=== PATIENT | male | born 1965 | race African-American/Black ===

== ENCOUNTER 2024-11-26 20:08 | Emergency (ER) | payer OTHER ==
[~2024-11-26] VITALS: Ht 182.9 cm; Wt 111.3 kg
--- NOTE | 2024-11-26 20:19 | ED.PDOC ---
General HPI Comments 59-year-old male brought in by EMS from home complaining of kidney pain, on the right side since around 9:00 a.m. today. When asked to localize the pain, patient points to his right upper flank and right mid back. He denies fever, abdominal pain, nausea, vomiting, diarrhea, constipation, hematuria or dysuria. He states the pain is not affected by movement or positioning. Patient states he took [place] this morning, which brought the pain down to a 6. 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, Medications, Allergies Allergies: Coded Allergies: No Known Drug Allergy (Verified Allergy, Unknown, 11/26/24) Information Source: Patient Mode of Arrival: EMS Severity: Moderate Timing: Hours Duration: Since onset, Hours Prehospital treatment: None Onset: Spontaneous Symptoms: Frequency Location: (R) Flank associated signs and symptoms: Nausea, Vomiting, Flank Pain Past Medical History PAST MEDICAL HISTORY: CHF, CVA, HTN Past Medical History (Other): Abdominal hernia Surgical History: Cholecystectomy, Tonsillectomy Surgical History (Other): Bilateral Eye Sx Family History Family History: Reviewed,noncontributory to illness, Unknown Social History Smoker: Non-Smoker Alcohol: Occasionally Drugs: Marijuana Lives In: Home Constitutional: denies: chills, diaphoresis, fatigue, fever, malaise, sweats, weakness, others EENTM: denies: blurred vision, double vision, ear bleeding, ear discharge, ear drainage, ear pain, ear ringing, eye pain, eye redness, hearing loss, mouth pain, mouth swelling, nasal discharge, nose bleeding, nose congestion, nose pain, photophobia, tearing, throat pain, throat swelling, voice changes, others Respiratory: denies: cough, hemoptysis, orthopnea, SOB at rest, shortness of breath, SOB with excertion, stridor, wheezing, others Cardiovascular: denies: chest pain, dizzy spells, diaphoresis, Dyspnea on exe rtion, edema, irregular heart beat, left arm pain, lightheadedness, palpitations, PND, syncope, others Gastrointestinal: reports: nausea, vomiting; denies: abdomen distended, abdominal pain, blood streaked bowels, constipated, diarrhea, dysphagia, difficulty swallowing, hematemesis, melena, poor appetite, poor fluid intake, rectal bleeding, rectal pain, others Genitourinary: reports: flank pain; denies: burning, dysuria, frequency, hematuria, incontinence, penile discharge, penile sore, pain, testicle pain, testicle swelling, urgency, others Neurological: denies: dizziness, fainting, headache, left sided numbness, left sided weakness, numbness, paresthesia, pre-existing deficit, right sided numbness, right sided weakness, seizure, speech problems, tingling, tremors, weakness, others Musculoskeletal: denies: back pain, gout, joint pain, joint swelling, muscle pa in, muscle stiffness, neck pain, others Integumetry: denies: bruises, change in color, change in hair/nails, dryness, laceration, lesions, lumps, rash, wounds, others Allergic/Immunocompromised: denies: Difficulty Healing, Frequent Infections, Hives, Itching, others Hematologic/Lymphatic: denies: anemia, blood clots, easy bleeding, easy bruising, swollen glands, others Endocrine: denies: excessive hunger, excessive sweating, excessive thirst, excessive urination, flushing, intolerance to cold, intolerance to heat, unexplained weight gain, unexplained weight loss, others Psychiatric: denies: anxiety, bipolar disorder, depression, hopeless, panic disorder, schizophrenia, sleepless, suicidal, others All Other Systems: Reviewed and Negative Physical Exam General Appearance: No Apparent Distress HEENT: Other (Pupils and face symmetric. Moist mucous membranes. ) Neck: Full Range of Motion, Normal Inspection Respiratory: Lungs Clear, No Accessory Muscle Use, No Respiratory Distress, Normal Breath Sounds Cardiovascular: No Edema, No JVD, Regular Rate/Rhythm Breast Exam: Deferred Gastrointestinal: Soft, Other (Right upper flank and CVA tenderness) Genitalia: Deferred Pelvic: Deferred Rectal: Deferred Extremities: Normal inspection, Normal range of motion, Non-tender, No pedal edema Neurologic: Alert (Oriented x4), Normal Affect, Normal Mood, Other (Ambulatory) Cerebellar Function: NOT DONE Reflexes: NOT DONE Skin: Dry, Normal Color, Warm Lymphatic: NOT DONE Was a procedure done? Was a procedure done?: No Differential Diagnosis Kidney stone (Female): N/A Kidney stone (Male): Aortic dissection, Pyelonephritis, Renal failure, Strain, Urolithiasis, Urinary tract infection, Other (Musculoskeletal pain, disc disease, neuropathic pain) X-Ray, Labs, Meds, VS Vital Signs Date Time Temp Pulse Resp B/P (MAP) Pulse Ox O2 Delivery O2 Flow Rate FiO2 11/26/24 21:48 54 16 117/78 (91) 99 11/26/24 21:48 54 16 99 Room Air* 0 21 11/26/24 20:20 98.0 60 16 127/63 (84) 98 98.0 Lab Test 11/26/24 20:40 11/26/24 20:20 Range/Units White Blood Count 6.8 4.4-10.8 10^3/uL Red Blood Count 4.16 L 4.5-5.90 10^6/uL Hemoglobin 12.6 L 13.5-17.5 g/dL Hematocrit 38.9 L 41.0-53.0 % Mean Corpuscular Volume 93.6 80.0-100.0 fL Mean Corpuscular Hemoglobin 30.3 28.0-32.0 pg Mean Corpuscular Hemoglobin Concent 32.4 32.0-36.0 g/dL Red Cell Distribution Width 16.0 H 11.8-14.3 % Platelet Count 234 140-450 10^3/uL Mean Platelet Volume 8.1 6.9-10.8 fL Neutrophils (%) (Auto) 43.1 37.0-80.0 % Lymphocytes (%) (Auto) 37.1 10.0-50.0 % Monocytes (%) (Auto) 16.4 H 0.0-12.0 % Eosinophils (%) (Auto) 2.9 0.0-7.0 % Basophils (%) (Auto) 0.5 0.0-2.0 % Neutrophils # (Auto) 3.0 1.6-8.6 10 ^3/uL Lymphocytes # (Auto) 2.5 0.4-5.4 10 ^3/uL Monocytes # (Auto) 1.1 0-1.3 10 ^3/uL Eosinophils # (Auto) 0.2 0-0.8 10 ^3/uL Basophils # (Auto) 0 0-0.2 10 ^3/uL Nucleated Red Blood Cells 0.1 % Sodium Level 136 136-145 mmol/L Potassium Level 4.3 3.5-5.1 mmol/L Chloride Level 105 98-107 mmol/L Carbon Dioxide Level 21 20-31 mmol/L Anion Gap 10 5-15 Blood Urea Nitrogen 19 9-23 mg/dL Creatinine 1.48 H 0.700-1.30 mg/dL Glomerular Filtration Rate Calc 54 >90 mL/min BUN/Creatinine Ratio 12.8 10.0-20.0 Serum Glucose 96 74-106 mg/dL Calcium Level 9.3 8.7-10.4 mg/dL Total Bilirubin 0.6 0.2-1.0 mg/dL Aspartate Amino Transferase (AST) 19 13-40 U/L Alanine Aminotransferase (ALT) 29 7-40 U/L Alkaline Phosphatase 96 46-116 U/L Total Protein 7.5 5.7-8.2 g/dL Albumin 4.2 3.2-4.8 g/dL Urine Color Yellow Yellow Urine Clarity Clear Clear Urine pH 5.5 5.0-9.0 Urine Specific [place] 1.019 1.001-1.035 Urine Protein Negative Negative Urine Ketones Negative Negative Urine Blood Negative Negative /uL Urine Nitrite Negative Negative Urine Bilirubin Negative Negative Urine Urobilinogen Normal Negative mg/dL Urine Leukocyte Esterase Negative Negative /uL Urine RBC 1 0 - 3 /hpf Urine Microscopic WBC < 1 0-3 /HPF Urine Squamous Epithelial Cells Few <5 /hpf Urine Bacteria None seen None Seen /hpf Urine Glucose 4+ H Normal mg/dL PROCEDURE(s): ABPL - CT AB PEL WO CON-NO ORAL OR IV REASON: R flank pain ORDER NUMBER(s): [id number], ACCESSION NUMBER(s): [id number] CT SCAN ABDOMEN AND PELVIS WITHOUT CONTRAST CLINICAL HISTORY: R flank pain TECHNIQUE: Helical axial images are obtained from the lung bases through the pelvis without oral contrast. No intravenous contrast was administered. Coronal and sagittal reformatted images were generated from thin section reconstructions. One or more of the following radiation dose reduction techniques were used for this examination: automated exposure control, adjustment of the mA and/or kV according to patient size, use of iterative reconstruction technique. COMPARISON: None FINDINGS: LOWER THORAX: Imaged lung bases are grossly clear. ABDOMEN AND PELVIS: Evaluation of visceral and vascular structures is limited due to lack of contra st administration. Streak artifact also limits evaluation. As visualized, the unenhanced liver, spleen, pancreas and adrenals appear grossly unremarkable. The gallbladder is surgically absent. No hydroureteronephrosis or sizable, obstructing urinary tract calculi identified. No evidence of abdominal aortic aneurysm. No evidence of small-bowel obstruction. Normal caliber appendix. Colonic diverticulosis without definite CT evidence of diverticulitis at time. Moderate volume stool seen throughout the colon and rectum. No free intraperitoneal air or fluid identified. Apparent thickening of the urinary bladder may be in part due to underdistention. No sizable bladder calculus. No destructive osseous lesions identified. IMPRESSION: No hydroureteronephrosis or sizable, obstructing urinary tract calculi identified. No evidence of bowel obstruction. Colonic diverticulosis without definite CT evidence of diverticulitis at this time. X-Ray, Labs, Meds, VS Comment 59-year-old male with a history of hypertension, CVA, CHF and abdominal hernia complaining of right flank pain Vitals unremarkable Exam remarkable for right upper flank and CVA tenderness Rhythm strip independently interpreted by me: Sinus rhythm, rate 60, no ectopy. CT abdomen and pelvis: IMPRESSION: No hydroureteronephrosis or sizable, obstructing urinary tract calculi identified. No evidence of bowel obstruction. Colonic diverticulosis without definite CT evidence of diverticulitis at this time. CBC unremarkable, metabolic panel remarkable for creatinine 1.48, UA 4+ glucose otherwise negative Patient treated with the following in the ED: Morphine 4 mg IV, Zofran 4 mg IV On re-evaluation, patient states pain has improved. Vitals were stable. Workup is essentially unremarkable for any urinary infectious process, kidney stone, ureter stone or hydronephrosis. Pain may be musculoskeletal or neuropathic. Patient appears stable for discharge with close outpatient follow- up with his primary physician. Rx Soma. Continue [place] as needed for pain. Time of 1ST Reevaluation: 20:45 Reevaluation 1ST: Unchanged Time of 2ND Reevaluation: 22:00 Reevaluation 2ND: Improved Patient Education/Counseling: Diagnosis, Treatment, Prognosis Family Education/Counseling: No Family Present Departure 1 Departure Time of Disposition: 22:00 Impression: Primary Impression: Acute right flank pain Disposition: 01 HOME / SELF CARE / HOMELESS Condition: Stable Additional Instructions: Your blood tests were unremarkable for slightly abnormal kidney function. This is likely chronic. Your urine test showed glucose, but no kidney infection. CT scan did not show any abnormality involving your kidney. The report is enclosed below. Continue [place] as needed for pain. I have prescribed muscle relaxers. Follow-up with your primary doctor in 1-[address] [address] Ph: [phone] DIAGNOSTIC IMAGING Diagnostic Imaging Report : [id number] Signed PATIENT: JOSE PEDRO ACCT: [id number] UNIT: [id number] : 1965 LOC: ER ROOM / BED: / AGE / SEX: 59 / M ADM STATUS: REG ER SERVICE 17 ORDERING PHYSICIAN: VIDAL HERNANDEZ MD PROCEDURE(s): ABPL - CT AB PEL WO CON-NO ORAL OR IV REASON: R flank pain ORDER NUMBER(s): [id number], ACCESSION NUMBER(s): [id number] CT SCAN ABDOMEN AND PELVIS WITHOUT CONTRAST CLINICAL HISTORY: R flank pain TECHNIQUE: Helical axial images are obtained from the lung bases through the pelvis without oral contrast. No intravenous contrast was administered. Coronal and sagittal reformatted images were generated from thin section reconstructions. One or more of the following radiation dose reduction techniques were used for this examination: automated exposure control, adjus tment of the mA and/or kV according to patient size, use of iterative reconstruction technique. COMPARISON: None FINDINGS: LOWER THORAX: Imaged lung bases are grossly clear. ABDOMEN AND PELVIS: Evaluation of visceral and vascular structures is limited due to lack of contrast administration. Streak artifact also limits evaluation. As visualized, the unenhanced liver, spleen, pancreas and adrenals appear grossly unremarkable. The gallbladder is surgically absent. No hydroureteronephrosis or sizable, obstructing urinary tract calculi identified. No evidence of abdominal aortic aneurysm. No evidence of small-bowel obstruction. Normal caliber appendix. Colonic diverticulosis without definite CT evidence of diverticulitis at time. Moderate volume stool seen throughout the colon and rectum. No free intraperitoneal air or fluid identified. Apparent thickening of the urinary bladder may be in part due to underdistention. No sizable bladder calculus. No destructive osseous lesions identified. IMPRESSION: No hydroureteronephrosis or sizable, obstructing urinary tract calculi identified. No evidence of bowel obstruction. Colonic diverticulosis without definite CT evidence of diverticulitis at this time. e-Prescriptions Carisoprodol (Soma) 250 Mg Tab 250 MG PO Q8HPRN PRN, #30 TAB Prov: VIDAL HERNANDEZ MD 11/26/24 Discharged With: Self Critical Care Note Critical Care Time?: No Stability Stability form required: No Heart Score Heart Score: Heart Score Response (Comments) Value History N/A 0 EKG N/A 0 Age N/A 0 Risk Factors N/A 0 Troponin N/A 0 Total 0 I personally scribed for VIDAL HERNANDEZ MD ([email or web address]) on 11/26/24 at 20:19. Electronically submitted by Eugene Lomas ([email or web address]). VIDAL HERNANDEZ MD Nov 26, 2024 20:19
[2024-11-26 20:30] LABS: Urine Bacteria None Seen /hpf (None Seen)
[2024-11-26 20:38] LABS: Urine Blood Negative /uL (Negative); Urine Clarity Clear (Clear); Urine Color Yellow (Yellow); Urine Protein, UAD Negative (Negative); Urine Specific Gravity 1.019 (1.001-1.035); Urine Squamous Epithelial Cell FEW /hpf (<5); Urine Urobilinogen Normal (Negative); Urine WBC < 1 /HPF (0-3); Urine pH 5.5 (5.0-9.0)
[2024-11-26 20:54] LABS: Basophils # (auto) 0 10 ^3/uL (0-0.2); Basophils % (auto) 0.5 % (0.0-2.0); Eosinophils # (auto) 0.2 10 ^3/uL (0-0.8); Eosinophils % (auto) 2.9 % (0.0-7.0); Hematocrit 38.9 % (41.0-53.0); Hemoglobin 12.6 g/dL (13.5-17.5); Lymphocytes # (auto) 2.5 10 ^3/uL (0.4-5.4); Lymphocytes % (auto) 37.1 % (10.0-50.0); Mean Corpuscular Hemoglobin 30.3 pg (28.0-32.0); Mean Corpuscular Hgb Conc. 32.4 g/dL (32.0-36.0); Mean Corpuscular Volume 93.6 fL (80.0-100.0); Monocytes # (auto) 1.1 10 ^3/uL (0-1.3); Monocytes % (auto) 16.4 % (0.0-12.0); Neutrophils % (auto) 43.1 % (37.0-80.0); Nucleated Red Blood Cells % 0.1 %; Platelet Count (auto) 234 10^3/uL (140-450); Red Blood Cells 4.16 10^6/uL (4.5-5.90); White Blood Cell 6.8 10^3/uL (4.4-10.8)
[2024-11-26 21:08] LABS: Alanine Aminotransferase 29 U/L (7-40); Albumin 4.2 g/dL (3.2-4.8); Alkaline Phosphatase 96 U/L (46-116); Anion Gap 10 (5-15); Aspartate Aminotransferase 19 U/L (13-40); BUN/Creatinine Ratio 12.8 (10.0-20.0); Bilirubin, Total 0.6 mg/dL (0.2-1.0); Blood Urea Nitrogen 19 mg/dL (9-23); Calcium 9.3 mg/dL (8.7-10.4); Carbon Dioxide 21 mmol/L (20-31); Chloride 105 mmol/L (98-107); Glucose 96 mg/dL (74-106); Potassium 4.3 mmol/L (3.5-5.1); Total Protein 7.5 g/dL (5.7-8.2)
[2024-11-26 21:17] LABS: Sodium 136 mmol/L (136-145)
--- NOTE | 2024-11-26 21:34 | DVH ---
CT SCAN ABDOMEN AND PELVIS WITHOUT CONTRAST CLINICAL HISTORY: R flank pain TECHNIQUE: Helical axial images are obtained from the lung bases through the pelvis without oral cont rast. No intravenous contrast was administered. Coronal and sagittal reformatted images were generate d from thin section reconstructions. One or more of the following radiation dose reduction techniques were used for this examination: automated exposure control, adjustment of the mA and/or kV according to patient size, use of iterative reconstruction technique. COMPARISON: None FINDINGS: LOWER THORAX: Imaged lung bases are grossly clear. ABDOMEN AND PELVIS: Evaluation of visceral and vascular structures is limited due to lack of contrast administration. Str eak artifact also limits evaluation. As visualized, the unenhanced liver, spleen, pancreas and adrenals appear grossly unremarkable. The g allbladder is surgically absent. No hydroureteronephrosis or sizable, obstructing urinary tract calculi identified. No evidence of abdominal aortic aneurysm. No evidence of small-bowel obstruction. Normal caliber appendix. Colonic diverticulosis without defin ite CT evidence of diverticulitis at time. Moderate volume stool seen throughout the colon and rectum . No free intraperitoneal air or fluid identified. Apparent thickening of the urinary bladder may be in part due to underdistention. No sizable bladder calculus. No destructive osseous lesions identified. IMPRESSION: No hydroureteronephrosis or sizable, obstructing urinary tract calculi identified. No evidence of bowel obstruction. Colonic diverticulosis without definite CT evidence of diverticulitis at this time.
[2024-11-26 21:48] VITALS: PULSE 54; RESP 16; O2SAT 99
[2024-11-26] MEDS ORDERED: CARI250T PO (22:07)
[2024-11-26] MEDS: ONDANSETRON HCL 4 MG/2 ML VIAL IV ONE (22:18)
[2024-11-26] MEDS: MORPHINE SULFATE 4 MG/ML SYR/VIAL IV ONE (22:19)
[2024-11-26 23:10] VITALS: BP 123/46; PULSE 51; RESP 16; TEMP 97.5; O2SAT 95
== END 2024-11-26 23:19 | disposition home or self-care (01) ==
LOC: EDBD 20:08 → ER 20:08
DX: R10.10 Upper abdominal pain, unspecified (principal); F12.90 Cannabis use, unspecified, uncomplicated; I11.0 Hypertensive heart disease with heart failure; I50.9 Heart failure, unspecified; I10 Essential (primary) hypertension; Z90.49 Acquired absence of other specified parts of digestive tract; Z90.89 Acquired absence of other organs; Z86.73 Personal history of transient ischemic attack (TIA), and cerebral infarction without residual deficits
CPT/HCPCS: 36415; 74176; 80053; 81001; 85025; 87086; 96374; 96375; 99285; J2270; J2405

== ENCOUNTER 2024-12-20 19:34 | Emergency (ER) | payer OTHER ==
[~2024-12-20] VITALS: Ht 188 cm; Wt 104.0 kg
[~2024-12-20 19:34] MED LIST: CARI250T PO
--- NOTE | 2024-12-20 20:24 | ED.PDOC ---
History of Present Illness HPI Comments 59 y/o M is BIBA for c/o bilateral thigh and lower leg cramping. Patient reports onset of symptoms 4 hours ago, unprovoked, and calling EMS after consulting nurse phone help line. Started, initially, on his left side. Endorses past medical history of CHF, CVA, HTN, and DVT's, with current DVT on left leg (on Coumadin). Patient denies having any shortness of breath, chest pain, numbness, tingling, or further associated symptoms. Chief Complaint: Lower Extremity Time Seen by MD: 19:40 Reviewed Notes: Nurses Notes, Medications, Allergies Allergies: Coded Allergies: No Known Drug Allergy (Verified Allergy, Unknown, 11/26/24) Home Meds Active Scripts Carisoprodol (Soma) 250 Mg Tab, 250 MG PO Q8HPRN PRN, #30 TAB Prov:VIDAL HERNANDEZ MD 11/26/24 Information Source: Patient Mode of Arrival: EMS Severity: Moderate Timing: Hours Duration: Since onset Prehospital treatment: None Past Medical History PAST MEDICAL HISTORY: CHF, CVA, HTN Past Medical History (Other): DVT's Surgical History: Cholecystectomy, Tonsillectomy Family History Family History: Reviewed,noncontributory to illness, Unknown Social History Smoker: Non-Smoker Alcohol: Occasionally Drugs: Marijuana Lives In: Home All Other Systems: Reviewed and Negative (Comprehensive systems review obtained and negative except for what is stated in the HPI.) Physical Exam General Appearance: No Apparent Distress, Normal HEENT: Normal ENT Inspection, Pharynx Normal, TMs Normal Neck: Full Range of Motion, Non-Tender, Normal, Normal Inspection Respiratory: Chest Non-Tender, Lungs Clear, No Accessory Muscle Use, No Respiratory Distress, Normal Breath Sounds Cardiovascular: No Edema, No JVD, No Murmur, No Gallop, Normal Peripheral Pulses, Regular Rate/Rhythm Breast Exam: Deferred Gastrointestinal: No Organomegaly, Non Tender, No Pulsatile Mass, Normal Bowel Sounds, Soft Genitalia: Deferred Pelvic: Deferred Rectal: Deferred Extremities: No calf tenderness, Normal capillary refill, Normal inspection, Normal range of motion, Non-tender, No pedal edema Musculoskeletal : Apperance: Normal Neurologic: Alert, ladler II-XII nml as Tested, No Motor Deficits, Normal Affect, Normal Mood, No Sensory Deficits Cerebellar Function: Normal Reflexes: Normal Skin: Dry, Normal Color, Warm Lymphatic: No Adenopathy Was a procedure done? Was a procedure done?: No Differential Dx Considerations may include: sprain, musculoskeletal pain, sciatica, DDD, DVT, among others X-Ray, Labs, Meds, VS Vital Signs Date Time Temp Pulse Resp B/P (MAP) Pulse Ox O2 Delivery O2 Flow Rate FiO2 12/20/24 21:06 66 18 100 Room Air* 0 21 12/20/24 21:06 98.8 66 18 136/83 (100) 100 98.8 12/20/24 19:36 98.6 78 18 104/72 (83) 96 98.6 Lab Test 12/20/24 20:25 Range/Units White Blood Count 8.5 4.4-10.8 10^3/uL Red Blood Count 4.21 L 4.5-5.90 10^6/uL Hemoglobin 12.9 L 13.5-17.5 g/dL Hematocrit 38.3 L 41.0-53.0 % Mean Corpuscular Volume 90.9 80.0-100.0 fL Mean Corpuscular Hemoglobin 30.7 28.0-32.0 pg Mean Corpuscular Hemoglobin Concent 33.8 32.0-36.0 g/dL Red Cell Distribution Width 15.5 H 11.8-14.3 % Platelet Count 270 140-450 10^3/uL Mean Platelet Volume 8.0 6.9-10.8 fL Neutrophils (%) (Auto) 50.1 37.0-80.0 % Lymphocytes (%) (Auto) 32.0 10.0-50.0 % Monocytes (%) (Auto) 15.5 H 0.0-12.0 % Eosinophils (%) (Auto) 2.1 0.0-7.0 % Basophils (%) (Auto) 0.3 0.0-2.0 % Neutrophils # (Auto) 4.3 1.6-8.6 10 ^3/uL Lymphocytes # (Auto) 2.7 0.4-5.4 10 ^3/uL Monocytes # (Auto) 1.3 0-1.3 10 ^3/uL Eosinophils # (Auto) 0.2 0-0.8 10 ^3/uL Basophils # (Auto) 0 0-0.2 10 ^3/uL Nucleated Red Blood Cells 0.1 % Sodium Level 136 136-145 mmol/L Potassium Level 3.8 3.5-5.1 mmol/L Chloride Level 101 98-107 mmol/L Carbon Dioxide Level 23 20-31 mmol/L Anion Gap 12 5-15 Blood Urea Nitrogen 19 9-23 mg/dL Creatinine 1.76 H 0.700-1.30 mg/dL Glomerular Filtration Rate Calc 44 >90 mL/min BUN/Creatinine Ratio 10.8 10.0-20.0 Serum Glucose 86 74-106 mg/dL Calcium Level 10.2 8.7-10.4 mg/dL Total Bilirubin 0.5 0.2-1.0 mg/dL Aspartate Amino Transferase (AST) 18 13-40 U/L Alanine Aminotransferase (ALT) 28 7-40 U/L Alkaline Phosphatase 122 H 46-116 U/L B-Type Natriuretic Peptide 8.04 0-100 pg/mL Total Protein 7.9 5.7-8.2 g/dL Albumin 4.6 3.2-4.8 g/dL X-Ray, Labs, Meds, VS Comment Imaging: X-rays and CT scans were reviewed and interpreted by this provider, imaging shows no fractures and no pathological disease. Pending radiology review. Laboratory: Labs reviewed and interpreted by this provider. No significant abnormalities noted. Patient has prior medical visits reviewed. Med reconciliation performed Vital signs reviewed Time of 1ST Reevaluation: 20:10 Reevaluation 1ST: Unchanged Patient Education/Counseling: Diagnosis, Treatment, Need For Follow Up (Follow up in the emergency department in the next 24-48 hours if symptoms worsen. It was advised to follow up with your primary care doctor in the next 3-4 days for further evaluation.) Family Education/Counseling: No Family Present Additional Information Previous visits reviewed: November 26, 2024 encounter for acute right flank pain The following tests were ordered, and results were reviewed by me: bilateral lower DVT, UA, BNP. CBC, CMP Additional Information was gathered from interviewing the following independent historians: EMS I reviewed and agreed with the following test results read by other providers: bilateral lower DVT I discussed treatment and results with medical personnel and: patient Departure 1 Departure Time of Disposition: 22:08 Impression: Primary Impression: DVT (deep venous thrombosis) Qualified Codes: I82.512 - Chronic embolism and thrombosis of left femoral vein Additional Impression: Leg cramping Disposition: HOME / SELF CARE / HOMELESS Condition: Fair Discharged With: Self Critical Care Note Critical Care Time?: No Stability Stability form required: No Heart Score Heart Score: Heart Score Response (Comments) Value History N/A 0 EKG N/A 0 Age N/A 0 Risk Factors N/A 0 Troponin N/A 0 Total 0 I personally scribed for LAUREN DE OLIVEIRA ([email or web address]) on 12/20/24 at 20:24. Electronically submitted by Cale Arteaga ([email or web address]). LAUREN DE OLIVEIRA December 20, 2024 20:24
[2024-12-20 20:39] LABS: Basophils # (auto) 0 10 ^3/uL (0-0.2); Basophils % (auto) 0.3 % (0.0-2.0); Eosinophils # (auto) 0.2 10 ^3/uL (0-0.8); Eosinophils % (auto) 2.1 % (0.0-7.0); Hematocrit 38.3 % (41.0-53.0); Hemoglobin 12.9 g/dL (13.5-17.5); Lymphocytes # (auto) 2.7 10 ^3/uL (0.4-5.4); Mean Corpuscular Hemoglobin 30.7 pg (28.0-32.0); Mean Corpuscular Hgb Conc. 33.8 g/dL (32.0-36.0); Mean Corpuscular Volume 90.9 fL (80.0-100.0); Monocytes # (auto) 1.3 10 ^3/uL (0-1.3); Monocytes % (auto) 15.5 % (0.0-12.0); Neutrophils # (auto) 4.3 10 ^3/uL (1.6-8.6); Neutrophils % (auto) 50.1 % (37.0-80.0); Nucleated Red Blood Cells % 0.1 %; Platelet Count (auto) 270 10^3/uL (140-450); Red Blood Cells 4.21 10^6/uL (4.5-5.90); Red Cell Distribution Width 15.5 % (11.8-14.3); White Blood Cell 8.5 10^3/uL (4.4-10.8)
--- NOTE | 2024-12-20 20:42 | DVH ---
Procedure: US BiLat Lower DVT Study Date and Requested Time: 12/20/2024 07:54 PM History: pain Comparison: None Technique: Multiple high resolution cobos-scale images with and without compression obtained of the bi lateral lower extremity veins, including the common femoral vein, deep femoral vein, proximal mid and distal superficial femoral vein, and popliteal vein. Additional limited images of the greater saphen ous vein also obtained. Augmentation performed as indicated. Color and spectral doppler flow images o btained as indicated. Findings: Deep vein thrombosis involving the the left mid and distal superficial femoral vein, left popliteal v ein and left bifurcation. No deep vein thrombosis within the right lower extremity veins and remainder of the left lower extrem ity veins. Impression: Deep vein thrombosis involving the left mid and distal superficial femoral veins, left popliteal vein and left bifurcation. Multiple attempts were made to contact provider without success.
[2024-12-20 20:54] LABS: Alanine Aminotransferase 28 U/L (7-40); Albumin 4.6 g/dL (3.2-4.8); Anion Gap 12 (5-15); Aspartate Aminotransferase 18 U/L (13-40); BUN/Creatinine Ratio 10.8 (10.0-20.0); Blood Urea Nitrogen 19 mg/dL (9-23); Calcium 10.2 mg/dL (8.7-10.4); Carbon Dioxide 23 mmol/L (20-31); Chloride 101 mmol/L (98-107); Glucose 86 mg/dL (74-106); Potassium 3.8 mmol/L (3.5-5.1); Total Protein 7.9 g/dL (5.7-8.2)
[2024-12-20 20:55] LABS: Bilirubin, Total 0.5 mg/dL (0.2-1.0)
[2024-12-20 20:58] LABS: Alkaline Phosphatase 122 U/L (46-116); Sodium 136 mmol/L (136-145)
[2024-12-20 21:06] VITALS: PULSE 66; RESP 18; TEMP 98.8; O2SAT 100
[2024-12-20] MEDS ORDERED: KETOROLAC TROMETH 30 MG/ML 1ML VIAL IM ONE (21:30)
[2024-12-20] MEDS: KETOROLAC TROMETH 30 MG/ML 1ML VIAL IV ONE (22:15)
[2024-12-20] MEDS: SODIUM CHLORIDE 0.9% 1,000 ML IV ONE (22:15)
[2024-12-20] MEDS: MORPHINE SULFATE 4 MG/ML SYR/VIAL IV ONE (23:09)
[2024-12-20 23:38] VITALS: BP 137/85; PULSE 71; RESP 14; O2SAT 96
== END 2024-12-20 23:41 | disposition home or self-care (01) ==
LOC: EDBD 19:34 → ER 19:34
DX: I82.402 Acute embolism and thrombosis of unspecified deep veins of left lower extremity (principal); R25.2 Cramp and spasm; F12.90 Cannabis use, unspecified, uncomplicated; I11.0 Hypertensive heart disease with heart failure; I50.9 Heart failure, unspecified; Z90.89 Acquired absence of other organs; Z90.49 Acquired absence of other specified parts of digestive tract
CPT/HCPCS: 36415; 80053; 83880; 85025; 93970; 96361; 96374; 96375; 99285; J1885; J2270; J7030

== ENCOUNTER 2025-01-15 01:53 | Inpatient (IN) | payer OTHER ==
[~2025-01-15] VITALS: Ht 182.9 cm; Wt 120.3 kg
[2025-01-15] VITALS (7 sets, daily range): BP systolic 137–145; BP diastolic 45–94; PULSE 50–75; RESP 12–18; TEMP 97.9–98.9; O2SAT 95–98
--- NOTE | 2025-01-15 02:09 | ED.PDOC ---
Musculoskeletal HPI Comments 59-year-old male came to ER via EMS for left leg pain. Patient has a history of hypertension, CHF, CVA and DVT of the left leg. Patient used to be on warfarin has been off his medication for 10 days, before switching to Xarelto which he is on for the past 3 days. Noted pain over the entire left leg. Denies any recent trauma. Denies any chest pains or shortness a breath Chief Complaint: Lower extremity Time Seen by MD: 02:07 Reviewed Notes: Head Of Ethics And Compliance Notes Allergies: Coded Allergies: No Known Drug Allergy (Verified Allergy, Unknown, 11/26/24) Home Meds Active Scripts Carisoprodol (Soma) 250 Mg Tab, 250 MG PO Q8HPRN PRN, #30 TAB Prov:VIDAL HERNANDEZ MD 11/26/24 Reported Medications Dicyclomine Hcl (BENTYL CAPSULE) 10 Mg Cp, 1 CAP PO, #90 CAP 11 Refills 01/15/25 Baclofen (Baclofen) 20 Mg Tab, 1 TAB PO, #90 TAB 2 Refills 01/15/25 Gabapentin (Gabapentin) 300 Mg Cap, 300 MG PO for 30 Days, MG 01/15/25 Magnesium Oxide (MAGNESIUM OXIDE) 400 Mg Tab, 1 TAB PO, #30 TAB 5 Refills 01/15/25 Tramadol HCl (Tramadol HCl) 50 Mg Tab, 50 MG PO, TAB 01/15/25 Empagliflozin (Jardiance) 10 Mg Tab, 10 MG PO, TAB 01/15/25 Atorvastatin Calcium (ATORVASTATIN CALCIUM) 40 Mg Tab, 1 TAB PO, #30 TAB 5 Refills 01/15/25 Spironolactone (Spironolactone) 25 Mg Tab, 1 TAB PO, #90 TAB 1 Refill 01/15/25 Sacubitril-Valsartan (Entresto 97-103 mg) 1 Tab Tab, 1 TAB PO, TAB 01/15/25 Dorzolamide-Timolol (Dorzolamide Hcl/Timolol M) 1 Ml Brigitte, 1 DROP EACHEYE, #10 ML 6 Refills 01/15/25 Brimonidine Tartrate (Brimonidine Tartrate) 0.15 % Brigitte, 1 DROP OP TID, DROP 01/15/25 Folic Acid (Folic Acid) 1 Mg Tab, 1 MG PO for 30 Days, MG 01/15/25 Homeopathic Products (Theraworx Relief) 1 Liq Liq, 1 LIQ EX, LIQ 01/15/25 Chlorpromazine HCl (Chlorpromazine Hydrochlor) 25 Mg Tab, 25 MG PO, TAB 01/15/25 Rivaroxaban (XARELTO) 20 Mg Tab, 20 MG PO, TAB 01/15/25 Pantoprazole Sodium Sesquihydr (Protonix) 40 Mg Tab, 40 MG PO, #30 TAB 01/15/25 Mesalamine (DELZICOL) 400 Mg Cap, 400 MG OR, CAP 01/15/25 Hydrocodone-Acetaminophen (Hydrocodone Bitartrate/AC 5-325 mg) 1 Tab Tab, 1 TAB PO, TAB 01/15/25 Metoprolol Succinate (Metoprolol Succinate Er) 50 Mg Tab, 200 MG PO for 30 Days, MG 01/15/25 Bumetanide (Bumex) 2 Mg Tab, 2 MG PO DAILY 01/15/25 Discontinued Reported Medications Bumetanide (Bumetanide) 2 Mg Tab, 2 MG PO for 30 Days, MG 01/15/25 Information Source: Patient, Emergency Med Personnel Mode of Arrival: EMS Location: Left Extremity Location: Leg Timing: Hours Prehospital treatment: None Severity: Moderate Able to Move Extremity: Yes Bear Weight: Limited Pain: Moderate Hand Dominance: Right Mechanism: Spontaneous Circumstances: Spontaneous Onset of Symptoms: Spontaneous Symptoms: Swelling Associated signs and symptoms: Leg pain (Left) Review of Systems REVIEW OF SYSTEMS: No fever, no chills, or fatigue HEENT: No sore throat, no earache, no congestion, no neck pain. Cardiac: No chest pain. No palpitations. Lungs: No shortness of breath, no cough. GI: No nausea, no vomiting, no diarrhea, no constipation, no abdominal pain : No dysuria, frequency, or urgency. No hematuria. Musculoskeletal: No joint pain , no joint swelling, no extremity edema. (+) left leg pain Skin: No rash, no itching. Neuro: No headache, no dizziness, no weakness Vital Signs Vital Signs Date Time Temp Pulse Resp B/P (MAP) Pulse Ox O2 Delivery O2 Flow Rate FiO2 01/15/25 08:02 57 01/15/25 08:00 97.7 12 131/56 (81) 95 97.7 01/15/25 07:30 Room Air* 0 21 Physical Exam General: Awake, alert and oriented. No acute distress. Skin: Skin in warm, dry and intact without rashes or lesions. HEENT: The head is normocephalic and atraumatic. Conjunctivae are clear without exudates or hemorrhage. Sclera is non-icteric. Neck: Normal range of motion. No JVD. Cardiac: Regular rate Respiratory: No signs of respiratory distress. No Stridor. Extremities: Lower extremity tenderness Neurological: The patient is awake, alert and oriented to person, place, and time with normal speech. Speech is clear. There is no facial asymmetry. Psychiatric: Appropriate mood and affect. Good judgement and insight. Past Medical History PAST MEDICAL HISTORY: CHF, CVA, HTN Past Medical History (Other): DVT left leg Surgical History: Cholecystectomy, Tonsillectomy Family History Family History: Reviewed,noncontributory to illness, Unknown Social History Smoker: Non-Smoker Alcohol: Occasionally Drugs: Marijuana Lives In: Home Was a procedure done? Was a procedure done?: No Differential Diagnosis EXT Differential Diagnosis: Cellulitis, CHF, Deep Vein Thrombosis, Sprain, Strain, Septic X-Ray, Labs, Meds, VS Vital Signs Date Time Temp Pulse Resp B/P (MAP) Pulse Ox O2 Delivery O2 Flow Rate FiO2 01/15/25 08:02 57 01/15/25 08:00 97.7 57 12 131/56 (81) 95 97.7 01/15/25 07:30 63 12 95 Room Air* 0 21 01/15/25 07:01 50 96 Room Air* 0 21 01/15/25 06:47 57 14 142/62 01/15/25 06:00 98.2 50 18 142/62 (88) 95 98.2 01/15/25 05:11 97.7 52 17 130/51 (77) 94 97.7 01/15/25 02:58 98.5 60 18 102/65 (77) 97 98.5 01/15/25 02:15 60 18 142/62 Lab Test 01/15/25 02:09 Range/Units White Blood Count 6.1 4.4-10.8 10^3/uL Red Blood Count 3.74 L 4.5-5.90 10^6/uL Hemoglobin 11.5 L 13.5-17.5 g/dL Hematocrit 34.3 L 41.0-53.0 % Mean Corpuscular Volume 91.9 80.0-100.0 fL Mean Corpuscular Hemoglobin 30.7 28.0-32.0 pg Mean Corpuscular Hemoglobin Concent 33.4 32.0-36.0 g/dL Red Cell Distribution Width 15.7 H 11.8-14.3 % Platelet Count 227 140-450 10^3/uL Mean Platelet Volume 8.0 6.9-10.8 fL Neutrophils (%) (Auto) 43.5 37.0-80.0 % Lymphocytes (%) (Auto) 36.9 10.0-50.0 % Monocytes (%) (Auto) 15.0 H 0.0-12.0 % Eosinophils (%) (Auto) 4.0 0.0-7.0 % Basophils (%) (Auto) 0.6 0.0-2.0 % Neutrophils # (Auto) 2.7 1.6-8.6 10 ^3/uL Lymphocytes # (Auto) 2.3 0.4-5.4 10 ^3/uL Monocytes # (Auto) 0.9 0-1.3 10 ^3/uL Eosinophils # (Auto) 0.2 0-0.8 10 ^3/uL Basophils # (Auto) 0 0-0.2 10 ^3/uL Nucleated Red Blood Cells 0.1 % Prothrombin Time 11.3 9.3-11.8 sec Prothrombin Time INR 1.07 0.9-1.15 Sodium Level 139 136-145 mmol/L Potassium Level 3.2 L 3.5-5.1 mmol/L Chloride Level 104 98-107 mmol/L Carbon Dioxide Level 24 20-31 mmol/L Anion Gap 11 5-15 Blood Urea Nitrogen 12 9-23 mg/dL Creatinine 1.91 H 0.700-1.30 mg/dL Glomerular Filtration Rate Calc 40 >90 mL/min BUN/Creatinine Ratio 6.3 L 10.0-20.0 Serum Glucose 121 H 74-106 mg/dL Calcium Level 8.8 8.7-10.4 mg/dL PROCEDURE(s): LLDVT - LT Lower DVT REASON: Left lower extremity DVT, follow up ORDER NUMBER(s): [id number], ACCESSION NUMBER(s): [id number] Left lower extremity venous duplex Clinical History: Left lower extremity DVT, follow up Comparison: US BILAT LOWER DVT on DOS: 12/20/24 Technique: Duplex Doppler evaluation of the deep venous system of the left lower extremity from the common femoral vein to the popliteal vein including color Doppler and spectral/pulsed waveform analysis was performed. Findings: There is persistent occlusive DVT seen in the mid superficial femoral vein, popliteal vein and trifurcation as seen previously. Some flow is noted in the distal superficial femoral vein. Impression: Similar appearance of known DVT left lower extremity. Time of 1ST Reevaluation: 02:04 Reevaluation 1ST: Unchanged Patient Education/Counseling: Prognosis Family Education/Counseling: No Family Present Departure 1 Departure Time of Disposition: 02:55 Impression: Primary Impression: Left leg DVT Additional Impressions: Intractable pain Hypokalemia ERVIN (acute kidney injury) Disposition: ADMITTED INPATIENT Condition: Stable Comments Patient admitted to hospitalist service for further treatment, evaluation and monitoring. Critical Care Note Critical Care Time?: No Stability Stability form required: No Heart Score Heart Score: Heart Score Response (Comments) Value History N/A 0 EKG N/A 0 Age N/A 0 Risk Factors N/A 0 Troponin N/A 0 Total 0 I personally scribed for DOM CALDWELL MD ([email or web address]) on 01/15/25 at 02:09. Electronically submitted by Natalio Arreaga ([email or web address]). I personally scribed for DOM CALDWELL MD ([email or web address]) on 01/15/25 at 03:31. Electronically submitted by Natalio Arreaga ([email or web address]). DOM CALDWELL MD Jan 15, 2025 02:09
[2025-01-15] MEDS: MORPHINE SULFATE INJ 2 MG/ml SYRG IV ONE (02:15)
[2025-01-15 02:50] LABS: Basophils # (auto) 0 10 ^3/uL (0-0.2); Basophils % (auto) 0.6 % (0.0-2.0); Eosinophils # (auto) 0.2 10 ^3/uL (0-0.8); Hematocrit 34.3 % (41.0-53.0); Hemoglobin 11.5 g/dL (13.5-17.5); Lymphocytes # (auto) 2.3 10 ^3/uL (0.4-5.4); Lymphocytes % (auto) 36.9 % (10.0-50.0); Mean Corpuscular Hemoglobin 30.7 pg (28.0-32.0); Mean Corpuscular Hgb Conc. 33.4 g/dL (32.0-36.0); Mean Corpuscular Volume 91.9 fL (80.0-100.0); Monocytes # (auto) 0.9 10 ^3/uL (0-1.3); Neutrophils # (auto) 2.7 10 ^3/uL (1.6-8.6); Neutrophils % (auto) 43.5 % (37.0-80.0); Nucleated Red Blood Cells % 0.1 %; Platelet Count (auto) 227 10^3/uL (140-450); Red Blood Cells 3.74 10^6/uL (4.5-5.90); Red Cell Distribution Width 15.7 % (11.8-14.3); White Blood Cell 6.1 10^3/uL (4.4-10.8)
[2025-01-15 03:01] LABS: Chloride 104 mmol/L (98-107); Sodium 139 mmol/L (136-145)
[2025-01-15 03:02] LABS: Anion Gap 11 (5-15); Carbon Dioxide 24 mmol/L (20-31)
[2025-01-15 03:03] LABS: Calcium 8.8 mg/dL (8.7-10.4)
[2025-01-15 03:08] LABS: BUN/Creatinine Ratio 6.3 (10.0-20.0); Blood Urea Nitrogen 12 mg/dL (9-23)
[2025-01-15 03:09] LABS: Glucose 121 mg/dL (74-106); Potassium 3.2 mmol/L (3.5-5.1)
--- NOTE | 2025-01-15 03:25 | DVH ---
Left lower extremity venous duplex Clinical History: Left lower extremity DVT, follow up Comparison: US BILAT LOWER DVT on DOS: 12/20/24 Technique: Duplex Doppler evaluation of the deep venous system of the left lower extremity from the common femor al vein to the popliteal vein including color Doppler and spectral/pulsed waveform analysis was perfo rmed. Findings: There is persistent occlusive DVT seen in the mid superficial femoral vein, popliteal vein and trifur cation as seen previously. Some flow is noted in the distal superficial femoral vein. Impression: Similar appearance of known DVT left lower extremity.
[2025-01-15] MEDS: SODIUM CHLORIDE 0.9% 1,000 ML IV ONE (03:30)
[2025-01-15 03:40] LABS: INR 1.07 (0.9-1.15); Prothrombin Time 11.3 sec (9.3-11.8)
[2025-01-15] MEDS: ACETAMINOPHEN 500 MG TAB or CAP PO ONE (04:55)
[2025-01-15] MEDS: POTASSIUM CHL 20 Meq TABLET PO ONE (04:57)
[2025-01-15] MEDS: MORPHINE SULFATE 4 MG/ML SYR/VIAL ONE (05:53)
[2025-01-15] MEDS ORDERED: BUMEX2MG PO (08:28)
[2025-01-15] MEDS ORDERED: NITROGLYCERIN 0.4 MG SL TAB SL PRN (08:30)
[2025-01-15] MEDS ORDERED: DOCUSATE SOD 100 MG CAP PO PRN (08:30)
[2025-01-15] MEDS ORDERED: MORPHINE SULFATE INJ 2 MG/ml SYRG IV PRN (08:30)
[2025-01-15] MEDS ORDERED: ACETAMINOPHEN 325 MG TAB PO PRN (08:30)
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
[2025-01-15] MEDS: ONDANSETRON HCL 4 MG/2 ML VIAL IV PRN (10:04)
[2025-01-15] MEDS: MORPHINE SULFATE 4 MG/ML SYR/VIAL IV PRN (10:04)
[2025-01-15 10:21] LABS: Urine Bacteria None Seen /hpf (None Seen)
[2025-01-15 10:51] LABS: Urine Blood Negative /uL (Negative); Urine Clarity Clear (Clear); Urine Color Light-Yellow (Yellow); Urine Protein, UAD Negative (Negative); Urine Specific Gravity 1.019 (1.001-1.035); Urine Squamous Epithelial Cell None Seen /hpf (<5); Urine Urobilinogen Normal (Negative); Urine WBC < 1 /HPF (0-3)
[2025-01-15] MEDS ORDERED: METO-289 PO (11:07)
[2025-01-15] MEDS ORDERED: DICY10CA PO (11:23)
[2025-01-15] MEDS ORDERED: TRAM-626 PO (11:23)
[2025-01-15] MEDS ORDERED: BRIM0.159 OP (11:23)
[2025-01-15] MEDS ORDERED: HYDR-4902 PO (11:23)
[2025-01-15] MEDS ORDERED: DORZ2SOL18 EACHEYE (11:23)
[2025-01-15] MEDS ORDERED: BUME2TAB5 PO (11:23)
[2025-01-15] MEDS ORDERED: ATOR40TA52 PO (11:23)
[2025-01-15] MEDS ORDERED: SACU1TAB4 PO (11:23)
[2025-01-15] MEDS ORDERED: MAGN400T40 PO (11:23)
[2025-01-15] MEDS ORDERED: SPIR25TA8 PO (11:23)
[2025-01-15] MEDS ORDERED: PANT40TA2 PO (11:23)
[2025-01-15] MEDS ORDERED: CHLO25TA59 PO (11:23)
[2025-01-15] MEDS ORDERED: BACL20TA PO (11:23)
[2025-01-15] MEDS ORDERED: GABA-1250 PO (11:23)
[2025-01-15] MEDS ORDERED: MESA400C OR (11:23)
[2025-01-15] MEDS ORDERED: EMPA1TAB PO (11:23)
[2025-01-15] MEDS ORDERED: RIVA20TA PO (11:23)
[2025-01-15] MEDS ORDERED: [UNRECOGNIZED DRUG - CODE] EX (11:23)
[2025-01-15] MEDS ORDERED: FOLI-119 PO (11:23)
[2025-01-15] MEDS: POTASSIUM EFFERVESENT TAB 25 MEQ PO ONE (14:09)
[2025-01-15] MEDS: GABAPENTIN 300 MG CAP PO SCH (14:17)
[2025-01-15] MEDS: SODIUM CHLOR 0.9% PF (SALINE LOCK) 10ML VIAL/SYR IV SCH (14:17)
[2025-01-15] MEDS: HYDROcodone-ACET 5/325MG TAB PO PRN (18:20)
[2025-01-15] MEDS: ATORVASTATIN 20 MG TAB PO SCH (21:32)
[2025-01-16 01:00] VITALS: BP 134/49; PULSE 56; RESP 16; TEMP 98.4; O2SAT 96
[2025-01-16 05:00] VITALS: BP 167/82; PULSE 52; RESP 16; TEMP 98.2; O2SAT 95
[2025-01-16 08:00] VITALS: PULSE 53; PULSE 61; RESP 20; O2SAT 96
[2025-01-16 09:04] LABS: Basophils # (auto) 0 10 ^3/uL (0-0.2); Basophils % (auto) 0.4 % (0.0-2.0); Eosinophils # (auto) 0.2 10 ^3/uL (0-0.8); Eosinophils % (auto) 4.5 % (0.0-7.0); Hematocrit 35.9 % (41.0-53.0); Hemoglobin 12.1 g/dL (13.5-17.5); Lymphocytes # (auto) 1.7 10 ^3/uL (0.4-5.4); Lymphocytes % (auto) 36.7 % (10.0-50.0); Mean Corpuscular Hemoglobin 31.1 pg (28.0-32.0); Mean Corpuscular Hgb Conc. 33.8 g/dL (32.0-36.0); Monocytes # (auto) 0.4 10 ^3/uL (0-1.3); Monocytes % (auto) 8.5 % (0.0-12.0); Neutrophils # (auto) 2.3 10 ^3/uL (1.6-8.6); Neutrophils % (auto) 49.9 % (37.0-80.0); Nucleated Red Blood Cells % 0.1 %; Platelet Count (auto) 214 10^3/uL (140-450); Red Cell Distribution Width 15.7 % (11.8-14.3); White Blood Cell 4.6 10^3/uL (4.4-10.8)
[2025-01-16 09:05] VITALS: BP 175/86; PULSE 53; RESP 20; TEMP 98.4; O2SAT 96
[2025-01-16 09:16] LABS: Alanine Aminotransferase 22 U/L (7-40); Albumin 3.8 g/dL (3.2-4.8); Alkaline Phosphatase 92 U/L (46-116); Anion Gap 12 (5-15); Aspartate Aminotransferase 23 U/L (<34); BUN/Creatinine Ratio 8.2 (10.0-20.0); Bilirubin, Total 0.5 mg/dL (0.2-1.0); Blood Urea Nitrogen 12 mg/dL (9-23); Calcium 8.8 mg/dL (8.7-10.4); Carbon Dioxide 22 mmol/L (20-31); Chloride 105 mmol/L (98-107); Potassium 3.7 mmol/L (3.5-5.1); Sodium 139 mmol/L (136-145); Total Protein 6.6 g/dL (5.7-8.2)
[2025-01-16 09:17] LABS: Glucose 167 mg/dL (74-106)
[2025-01-16] MEDS: PANTOPRAZOLE 40 MG TAB PO SCH (10:05)
[2025-01-16] MEDS: EMPAGLIFLOZIN 10 MG TAB PO SCH (10:05)
[2025-01-16] MEDS: DICYCLOMINE HCL 10 MG CAP PO SCH (10:05)
[2025-01-16] MEDS: RIVAROXABAN 20 MG TAB PO SCH (10:05)
[2025-01-16] MEDS: BUMETANIDE 1 MG TAB PO SCH (10:06)
[2025-01-16] MEDS: METOPROLOL SUCCINATE XL 50 MG TAB PO SCH (10:06)
[2025-01-16] MEDS: chlorproMAZINE HCL 25 MG TAB PO SCH (10:06)
[2025-01-16] MEDS: MORPHINE SULFATE INJ 2 MG/ml SYRG IV ONE (10:48)
[2025-01-16 10:50] VITALS: BP 175/86; PULSE 53; RESP 20; TEMP 98.4; O2SAT 96
[2025-01-16 12:33] VITALS: BP 165/93; PULSE 52; RESP 20; TEMP 96.8; O2SAT 97
== END 2025-01-16 12:55 | disposition home or self-care (01) | DRG 197 ==
LOC: EDBD 01:53 → ER 01:53 → OVERFLOW 08:20 → TELE-WESTW 14:59
PROVIDERS: ADMIT Hospitalist; ATTEND Hospitalist
DX: I82.492 Acute embolism and thrombosis of other specified deep vein of left lower extremity (principal); N17.9 Acute kidney failure, unspecified; I50.9 Heart failure, unspecified; I11.0 Hypertensive heart disease with heart failure; E78.5 Hyperlipidemia, unspecified; E87.6 Hypokalemia; Z86.73 Personal history of transient ischemic attack (TIA), and cerebral infarction without residual deficits; Z90.49 Acquired absence of other specified parts of digestive tract
CPT/HCPCS: 36415; 80048; 80053; 81001; 84132; 85025; 85610; 93971; 96361; 96374; 96375; G0378; J2405

== ENCOUNTER 2025-01-22 18:57 | Emergency (ER) | payer OTHER ==
[~2025-01-22] VITALS: Ht 182.9 cm; Wt 120.0 kg
[~2025-01-22 18:57] MED LIST changes: +ATOR40TA52 PO; +BACL20TA PO; +BRIM0.159 OP; +BUMEX2MG PO; +CHLO25TA59 PO; +DICY10CA PO; +DORZ2SOL18 EACHEYE; +EMPA1TAB PO; +FOLI-119 PO; +GABA-1250 PO; +HYDR-4902 PO; +MAGN400T40 PO; +MESA400C OR; +METO-289 PO; +PANT40TA2 PO; +RIVA20TA PO; +SACU1TAB4 PO; +SPIR25TA8 PO; +TRAM-626 PO; +[UNRECOGNIZED DRUG - CODE] EX
[2025-01-22] MEDS: ACETAMINOPHEN IV 1000 MG/100ML (10MG/ML) IV ONE (19:15)
--- NOTE | 2025-01-22 19:36 | ED.PDOC ---
History of Present Illness HPI Comments 59-year-old male who came to ER for headaches. Patient has history of hypertension, dyslipidemia, CVA, CHF, DVT for left leg, currently on Xarelto. Patient was discharged here a week ago for ERVIN 2 VMN. For the past 5 hours, patient has been experiencing headaches, with right eye pain and blurriness. Advised to come to the ER for further evaluation and management. 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 Allergies: Coded Allergies: No Known Drug Allergy (Verified Allergy, Unknown, 11/26/24) Home Meds Active Scripts Carisoprodol (Soma) 250 Mg Tab, 250 MG PO Q8HPRN PRN, #30 TAB Prov:VIDAL HERNANDEZ MD 11/26/24 Reported Medications Dicyclomine Hcl (BENTYL CAPSULE) 10 Mg Cp, 1 CAP PO, #90 CAP 11 Refills 01/15/25 Baclofen (Baclofen) 20 Mg Tab, 1 TAB PO, #90 TAB 2 Refills 01/15/25 Gabapentin (Gabapentin) 300 Mg Cap, 300 MG PO for 30 Days, MG 01/15/25 Magnesium Oxide (MAGNESIUM OXIDE) 400 Mg Tab, 1 TAB PO, #30 TAB 5 Refills 01/15/25 Tramadol HCl (Tramadol HCl) 50 Mg Tab, 50 MG PO, TAB 01/15/25 Empagliflozin (Jardiance) 10 Mg Tab, 10 MG PO, TAB 01/15/25 Atorvastatin Calcium (ATORVASTATIN CALCIUM) 40 Mg Tab, 1 TAB PO, #30 TAB 5 Refills 01/15/25 Spironolactone (Spironolactone) 25 Mg Tab, 1 TAB PO, #90 TAB 1 Refill 01/15/25 Sacubitril-Valsartan (Entresto 97-103 mg) 1 Tab Tab, 1 TAB PO, TAB 01/15/25 Dorzolamide-Timolol (Dorzolamide Hcl/Timolol M) 1 Ml Brigitte, 1 DROP EACHEYE, #10 ML 6 Refills 01/15/25 Brimonidine Tartrate (Brimonidine Tartrate) 0.15 % Brigitte, 1 DROP OP TID, DROP 01/15/25 Folic Acid (Folic Acid) 1 Mg Tab, 1 MG PO for 30 Days, MG 01/15/25 Homeopathic Products (Theraworx Relief) 1 Liq Liq, 1 LIQ EX, LIQ 01/15/25 Chlorpromazine HCl (Chlorpromazine Hydrochlor) 25 Mg Tab, 25 MG PO, TAB 01/15/25 Rivaroxaban (XARELTO) 20 Mg Tab, 20 MG PO, TAB 01/15/25 Pantoprazole Sodium Sesquihydr (Protonix) 40 Mg Tab, 40 MG PO, #30 TAB 01/15/25 Mesalamine (DELZICOL) 400 Mg Cap, 400 MG OR, CAP 01/15/25 Hydrocodone-Acetaminophen (Hydrocodone Bitartrate/AC 5-325 mg) 1 Tab Tab, 1 TAB PO, TAB 01/15/25 Metoprolol Succinate (Metoprolol Succinate Er) 50 Mg Tab, 200 MG PO for 30 Days, MG 01/15/25 Bumetanide (Bumex) 2 Mg Tab, 2 MG PO DAILY 01/15/25 Information Source: Patient, Emergency Med Personnel Mode of Arrival: EMS Severity: Moderate Timing: Hours Duration: Since onset Review of Systems REVIEW OF SYSTEMS: No fever, no chills, or fatigue HEENT: No sore throat, no earache, no congestion, no neck pain, (+) blurred vision, (+) eye pain. Cardiac: No chest pain. No palpitations. Lungs: No shortness of breath, no cough. GI: No nausea, no vomiting, no diarrhea, no constipation, no abdominal pain : No dysuria, frequency, or urgency. No hematuria. Musculoskeletal: No joint pain , no joint swelling, no extremity edema. Skin: No rash, no itching. Neuro: (+) headache, no dizziness, no weakness Vital Signs Vital Signs Date Time Temp Pulse Resp B/P (MAP) Pulse Ox O2 Delivery O2 Flow Rate FiO2 01/23/25 01:30 55 20 98 Room Air* 0 21 01/23/25 00:25 97.6 173/63 (99) 97.6 Physical Exam General: Awake, alert and oriented. No acute distress. Skin: Skin in warm, dry and intact. Appropriate color for ethnicity. Nailbeds pink with no cyanosis. HEENT: The head is normocephalic and atraumatic. Conjunctivae are clear without exudates or hemorrhage. Sclera is non-icteric. EOM are intact. No signs of nystagmus. Eyelids are normal in appearance without swelling or lesions. Oral mucosa is pink and moist Neck: The neck is supple with normal range of motion. No JVD. Cardiac: Heart rate and rhythm are normal. No murmurs, gallops, or rubs are auscultated. Respiratory: No signs of respiratory distress. Lung sounds are clear in all lobes bilaterally without rales, rhonchi, or wheezes. Abdominal: Abdomen is soft, non-tender without distention. Bowel sounds are present and normoactive in all four quadrants. Extremities: Upper and lower extremities are atraumatic in appearance without deformity or edema. Neurological: The patient is awake, alert and oriented to person, place, and time with normal speech. Speech is clear. There is no facial asymmetry. Normal alglwt-cj-pasl test. Strength intact. Vision grossly intact with chronic loss of peripheral vision. Psychiatric: Appropriate mood and affect. Good judgement and insight. Past Medical History PAST MEDICAL HISTORY: CHF, CVA, High Lipids, HTN Past Medical History (Other): DVT left leg Surgical History: Cholecystectomy, Tonsillectomy Family History Family History: Reviewed,noncontributory to illness, Unknown Social History Smoker: Non-Smoker Alcohol: Occasionally Drugs: Marijuana Lives In: Home Was a procedure done? Was a procedure done?: No Differential Dx Considerations may include: Anemia, electrolyte imbalance, CVA, TIA, headaches X-Ray, Labs, Meds, VS Vital Signs Date Time Temp Pulse Resp B/P (MAP) Pulse Ox O2 Delivery O2 Flow Rate FiO2 01/23/25 01:30 55 20 98 Room Air* 0 21 01/23/25 00:25 97.6 55 20 173/63 (99) 98 97.6 01/22/25 21:20 97.6 58 16 172/60 (97) 99 97.6 01/22/25 19:00 97.7 63 18 150/74 (99) 98 97.7 Lab Test 01/22/25 20:05 Range/Units White Blood Count 6.1 # 4.4-10.8 10^3/uL Red Blood Count 3.98 L 4.5-5.90 10^6/uL Hemoglobin 12.3 L 13.5-17.5 g/dL Hematocrit 36.6 L 41.0-53.0 % Mean Corpuscular Volume 92.0 80.0-100.0 fL Mean Corpuscular Hemoglobin 31.0 28.0-32.0 pg Mean Corpuscular Hemoglobin Concent 33.7 32.0-36.0 g/dL Red Cell Distribution Width 15.6 H 11.8-14.3 % Platelet Count 215 140-450 10^3/uL Mean Platelet Volume 8.0 6.9-10.8 fL Neutrophils (%) (Auto) 44.1 37.0-80.0 % Lymphocytes (%) (Auto) 37.2 10.0-50.0 % Monocytes (%) (Auto) 13.0 H 0.0-12.0 % Eosinophils (%) (Auto) 5.2 0.0-7.0 % Basophils (%) (Auto) 0.5 0.0-2.0 % Neutrophils # (Auto) 2.7 1.6-8.6 10 ^3/uL Lymphocytes # (Auto) 2.3 0.4-5.4 10 ^3/uL Monocytes # (Auto) 0.8 0-1.3 10 ^3/uL Eosinophils # (Auto) 0.3 0-0.8 10 ^3/uL Basophils # (Auto) 0 0-0.2 10 ^3/uL Nucleated Red Blood Cells 0.1 % Prothrombin Time 11.3 9.3-11.8 sec Prothrombin Time INR 1.07 0.9-1.15 Sodium Level 137 136-145 mmol/L Potassium Level 3.8 3.5-5.1 mmol/L Chloride Level 104 98-107 mmol/L Carbon Dioxide Level 23 20-31 mmol/L Anion Gap 10 5-15 Blood Urea Nitrogen 10 9-23 mg/dL Creatinine 1.66 H 0.700-1.30 mg/dL Glomerular Filtration Rate Calc 47 >90 mL/min BUN/Creatinine Ratio 6.0 L 10.0-20.0 Serum Glucose 97 74-106 mg/dL Calcium Level 9.1 8.7-10.4 mg/dL Magnesium Level 1.9 1.6-2.6 mg/dL EXAM: CT Head Without Intravenous Contrast CLINICAL INDICATION: Severe headache, blurred vision, on Xarelto TECHNIQUE: Axial computed tomography images of the head/brain without intravenous contrast. This CT exam was performed using one or more of the following dose reduction techniques: automated exposure control, adjustment of the mA and/or kV according to patient size, and/or use of iterative reconstruction technique. CONTRAST: COMPARISON: None FINDINGS: BRAIN AND EXTRA-AXIAL SPACES: Hypodense lesion of the right frontoparietal lobe volume loss, likely from prior infarction. Areas of decreased attenuation in the deep cerebral white matter are consistent with small vessel isch emic/degenerative changes. The cerebral and cerebellar sulci are prominent consistent with brain atrophy. No acute intracranial hemorrhage, midline shift or mass effect. If symptoms persist, further evaluation with MRI is recommended. BONES/JOINTS: Unremarkable. No acute fracture. SOFT TISSUES: Unremarkable. SINUSES: Unremarkable as visualized. No acute sinusitis. MASTOID AIR CELLS: Unremarkable as visualized. No mastoid effusion. OTHER FINDINGS: . . IMPRESSION: 1. Small vessel ischemic/degenerative changes. 2. Generalized brain atrophy. 3. No acute intracranial hemorrhage, midline shift or mass effect. If symptoms persist, further evaluation with MRI is recommended. Time of 1ST Reevaluation: 19:31 Reevaluation 1ST: Unchanged Patient Education/Counseling: Need For Follow Up, Other Family Education/Counseling: No Family Present SEPSIS Sepsis Screen Date sepsis recognized/suspect: Jan 22, 2025 Time Sepsis recognized/suspect: 1899 Recent Procedure: No On Antibiotic Therapy: No Respiratory Rate >20: No Heart Rate >90: No Temp<36 C (96.8 F) or >38.3 C: No SBP <90 or MAP <65 mmHG: No New Acute Mental Status Change: No Is the patient on CPAP, BIPAP,: No Physician Orders Head Without Contrast (01/22/25 19:10) Vital Signs Date Time Temp Pulse Resp B/P (MAP) Pulse Ox O2 Delivery O2 Flow Rate FiO2 01/23/25 01:30 55 20 98 Room Air* 0 21 01/23/25 00:25 97.6 55 20 173/63 (99) 98 97.6 01/22/25 21:20 97.6 58 16 172/60 (97) 99 97.6 01/22/25 19:00 97.7 63 18 150/74 (99) 98 97.7 Laboratory Tests Test 01/22/25 20:05 White Blood Count 6.1 10^3/uL (4.4-10.8) # Departure 1 Departure Time of Disposition: 21:02 Impression: Primary Impression: Headache Disposition: 01 HOME / SELF CARE / HOMELESS Condition: Stable Additional Instructions: ED DISCHARGE INSTRUCTIONS Instructions: Please read all instructions provided in this packet carefully. Although you have been discharged from the Emergency Department, this does not mean that you have a "clean bill of health". No definitive diagnosis for your symptoms has been made today. It is possible that you are in the process of developing a serious illness. This is why you must return to the ED without fail if any new or worsening symptoms (especially if your symptoms include chest pain, trouble breathing, abdominal pain, fever, headache, confusion, trouble seeing, or trouble walking) It is also very important that you see a primary care doctor within the next 3-5 days to follow up. If you are unable to get an appointment, return to the ED for re-evaluation. Headaches have many possible causes. Most headaches aren't a sign of a more serious problem, and they will get better on their own. Home treatment may help you feel better faster. The doctor has checked you carefully, but problems can develop later. If you notice any problems or new symptoms, get medical treatment right away. Follow-up care is a travis part of your treatment and safety. Be sure to make and go to all appointments, and call your doctor if you are having problems. It's also a good idea to know your test results and keep a list of the medicines you take. How can you care for yourself at home? Rest in a quiet, dark room until your headache is gone. Close your eyes and try to relax or go to sleep. Don't watch TV or read. Put a cold, moist cloth or cold pack on the painful area for 10 to 20 minutes at a time. Put a thin cloth between the cold pack and your skin. Use a warm, moist towel or a heating pad set on low to relax tight shoulder and neck muscles. Have someone gently massage your neck and shoulders. Take pain medicines exactly as directed. If the doctor gave you a prescription medicine for pain, take it as prescribed. If you are not taking a prescription pain medicine, ask your doctor if you can take an [id number] medicine. Do not ignore new symptoms that occur with a headache, such as a fever, weakness or numbness, vision changes, or confusion. These may be signs of a more serious problem. To prevent headaches Keep a headache diary so you can figure out what triggers your headaches. Avoiding triggers may help you prevent headaches. Record when each headache began, how long it lasted, and what the pain was like (throbbing, aching, stabbing, or dull). Write down any other symptoms you had with the headache, such as nausea, flashing lights or dark spots, or sensitivity to bright light or loud noise. Note if the headache occurred near your period. List anything that might have triggered the headache, such as certain foods (chocolate, cheese, wine) or odors, smoke, bright light, stress, or lack of sleep. Find healthy ways to deal with stress. Headaches are most common during or right after stressful times. Take time to relax before and after you do something that has caused a headache in the past. Try to keep your muscles relaxed by keeping good posture. Check your jaw, face, neck, and shoulder muscles for tension, and try relaxing them. When sitting at a desk, change positions often, and stretch for 30 seconds each hour. Get plenty of sleep and exercise. Eat regularly. Long periods without food can trigger a headache. Limit caffeine by not drinking too much coffee, tea, or soda. But don't quit caffeine suddenly, because that can also give you headaches. Reduce eyestrain from computers by blinking frequently and looking away from the computer screen every so often. Make sure you have proper eyewear and that your monitor is set up properly, about an arm's length away. When should you call for help? Call 911 anytime you think you may need emergency care. For example, call if: You have signs of a stroke. These may include: Sudden numbness, paralysis, or weakness in your face, arm, or leg, especially on only one side of your body. Sudden vision changes. Sudden trouble speaking. Sudden confusion or trouble understanding simple statements. Sudden problems with walking or balance. A sudden, severe headache that is different from past headaches. Call your doctor now or seek immediate medical care if: You have a fever and a stiff neck. You have new nausea and vomiting, or you cannot keep down food or fluids. Your headache gets much worse. Watch closely for changes in your health, and be sure to contact your doctor if: Your headaches get worse, happen more often, or change in some way. You have new symptoms. Your life is disrupted by your headaches. For example, you often miss work, school, or other activities. You do not get better as expected. Comments 59-year-old male presents with headache. No focal neurological symptoms. Neuro exam is benign. Pt is nontoxic. VSS. Based on history and normal neurological exam I have low suspicion for intracranial tumor, intracranial bleed, meningitis, temporal arteritis, glaucoma, CO poisoning. Most likely patient has benign headache, recommend rest, hydration, and OTC pain control. Patient well-appearing, nontoxic. Advised prompt follow-up with PCP, return to the ED with any new, worsening or concerning symptoms. Extensive evaluation was performed in attempt to identify or rule out: (See differential diagnosis section) The following tests were ordered, and results were reviewed by me and discussed with patient: (See diagnostic results section) The following test were independently interpreted by me: N/A I reviewed and agreed with the following test results read by other providers: N/A I reviewed the following notes from the pt's past medical encounters: N/A Additional information was gathered from interviewing the following independent historians: EMS personnel Discussion of management or test interpretation with external physician/other qualified health property caretaker: N/A Decision regarding hospitalization or escalation of hospital level of care: Risks and benefits of admission for further treatment of patient's condition was considered however due to patient's stable condition patient will be discharged to follow up closely or return to care for worsening of condition or inability to follow up. Critical Care Note Critical Care Time?: No Stability Stability form required: No Heart Score Heart Score: Heart Score Response (Comments) Value History N/A 0 EKG N/A 0 Age N/A 0 Risk Factors N/A 0 Troponin N/A 0 Total 0 I personally scribed for DOM CALDWELL MD ([email or web address]) on 01/22/25 at 19:36. Electronically submitted by Natalio Arreaga ([facility]). I personally scribed for DOM CALDWELL MD ([email or web address]) on 01/22/25 at 19:57. Electronically submitted by Natalio Arreaga ([facility]). DOM CALDWELL MD Jan 22, 2025 19:36
--- NOTE | 2025-01-22 19:55 | DVH ---
EXAM: CT Head Without Intravenous Contrast CLINICAL INDICATION: Severe headache, blurred vision, on Xarelto TECHNIQUE: Axial computed tomography images of the head/brain without intravenous contrast. This CT exam was performed using one or more of the following dose reduction techniques: automated exposure control, adjustment of the mA and/or kV according to patient size, and/or use of iterative reconstru ction technique. CONTRAST: COMPARISON: None FINDINGS: BRAIN AND EXTRA-AXIAL SPACES: Hypodense lesion of the right frontoparietal lobe volume loss, likely from prior infarction. Areas of decreased attenuation in the deep cerebral white matter are consist ent with small vessel ischemic/degenerative changes. The cerebral and cerebellar sulci are prominent consistent with brain atrophy. No acute intracranial hemorrhage, midline shift or mass effect. If s ymptoms persist, further evaluation with MRI is recommended. BONES/JOINTS: Unremarkable. No acute fracture. SOFT TISSUES: Unremarkable. SINUSES: Unremarkable as visualized. No acute sinusitis. MASTOID AIR CELLS: Unremarkable as visualized. No mastoid effusion. OTHER FINDINGS: . . IMPRESSION: 1. Small vessel ischemic/degenerative changes. 2. Generalized brain atrophy. 3. No acute intracranial hemorrhage, midline shift or mass effect. If symptoms persist, further eval uation with MRI is recommended.
[2025-01-22 20:34] LABS: Anion Gap 10 (5-15); Carbon Dioxide 23 mmol/L (20-31); Chloride 104 mmol/L (98-107); Potassium 3.8 mmol/L (3.5-5.1); Sodium 137 mmol/L (136-145)
[2025-01-22 20:35] LABS: Calcium 9.1 mg/dL (8.7-10.4)
[2025-01-22 20:38] LABS: Basophils # (auto) 0 10 ^3/uL (0-0.2); Basophils % (auto) 0.5 % (0.0-2.0); Eosinophils # (auto) 0.3 10 ^3/uL (0-0.8); Eosinophils % (auto) 5.2 % (0.0-7.0); Hematocrit 36.6 % (41.0-53.0); Hemoglobin 12.3 g/dL (13.5-17.5); Lymphocytes # (auto) 2.3 10 ^3/uL (0.4-5.4); Lymphocytes % (auto) 37.2 % (10.0-50.0); Mean Corpuscular Hgb Conc. 33.7 g/dL (32.0-36.0); Monocytes # (auto) 0.8 10 ^3/uL (0-1.3); Neutrophils # (auto) 2.7 10 ^3/uL (1.6-8.6); Neutrophils % (auto) 44.1 % (37.0-80.0); Nucleated Red Blood Cells % 0.1 %; Platelet Count (auto) 215 10^3/uL (140-450); Red Blood Cells 3.98 10^6/uL (4.5-5.90); Red Cell Distribution Width 15.6 % (11.8-14.3); White Blood Cell 6.1 10^3/uL (4.4-10.8)
[2025-01-22 20:39] LABS: Glucose 97 mg/dL (74-106)
[2025-01-22 20:40] LABS: Blood Urea Nitrogen 10 mg/dL (9-23); Magnesium 1.9 mg/dL (1.6-2.6)
[2025-01-22 20:52] LABS: INR 1.07 (0.9-1.15); Prothrombin Time 11.3 sec (9.3-11.8)
[2025-01-23 00:25] VITALS: BP 173/63; TEMP 97.6
[2025-01-23 01:30] VITALS: PULSE 55; RESP 20; O2SAT 98
== END 2025-01-23 01:28 | disposition home or self-care (01) ==
LOC: EDBD 18:57 → ER 19:00
DX: R51.9 Headache, unspecified (principal); F12.90 Cannabis use, unspecified, uncomplicated; F10.90 Alcohol use, unspecified, uncomplicated; E78.5 Hyperlipidemia, unspecified; I11.0 Hypertensive heart disease with heart failure; Z86.73 Personal history of transient ischemic attack (TIA), and cerebral infarction without residual deficits; Z86.718 Personal history of other venous thrombosis and embolism; Z79.899 Other long term (current) drug therapy; Z90.49 Acquired absence of other specified parts of digestive tract; Z90.89 Acquired absence of other organs; Z79.01 Long term (current) use of anticoagulants; Y90.9 Presence of alcohol in blood, level not specified
CPT/HCPCS: 36415; 70450; 80048; 83735; 85025; 85610

== ENCOUNTER 2025-02-10 13:50 | Inpatient (IN) | payer OTHER ==
[~2025-02-10] VITALS: Ht 180.3 cm; Wt 112.1 kg
--- NOTE | 2025-02-10 14:01 | ED.PDOC ---
GI ASSESSMENT HPI Comments 59-year-old male brought in by EMS presents with a chief complaint of abdominal pain with associated nausea and vomiting. Patient states that his nausea and vomiting began last night, but his abdomen pain began x 2 hours ago. Patient had 4 episodes of emesis with EMS and was given 4mg Zofran. Patient reports that his pain is localized to his bilateral lower quadrants, nonradiating, describes as aching, and rates his pain a 5/10. Time Seen by MD: 13:48 Reviewed Notes: Medications, Allergies Allergies: Coded Allergies: No Known Drug Allergy (Verified Allergy, Unknown, 11/26/24) Home Meds Active Scripts Carisoprodol (Soma) 250 Mg Tab, 250 MG PO Q8HPRN PRN, #30 TAB Prov:VIDAL HERNANDEZ MD 11/26/24 Reported Medications Dicyclomine Hcl (BENTYL CAPSULE) 10 Mg Cp, 1 CAP PO, #90 CAP 11 Refills 01/15/25 Baclofen (Baclofen) 20 Mg Tab, 1 TAB PO, #90 TAB 2 Refills 01/15/25 Gabapentin (Gabapentin) 300 Mg Cap, 300 MG PO for 30 Days, MG 01/15/25 Magnesium Oxide (MAGNESIUM OXIDE) 400 Mg Tab, 1 TAB PO, #30 TAB 5 Refills 01/15/25 Tramadol HCl (Tramadol HCl) 50 Mg Tab, 50 MG PO, TAB 01/15/25 Empagliflozin (Jardiance) 10 Mg Tab, 10 MG PO, TAB 01/15/25 Atorvastatin Calcium (ATORVASTATIN CALCIUM) 40 Mg Tab, 1 TAB PO, #30 TAB 5 Refills 01/15/25 Spironolactone (Spironolactone) 25 Mg Tab, 1 TAB PO, #90 TAB 1 Refill 01/15/25 Sacubitril-Valsartan (Entresto 97-103 mg) 1 Tab Tab, 1 TAB PO, TAB 01/15/25 Dorzolamide-Timolol (Dorzolamide Hcl/Timolol M) 1 Ml Brigitte, 1 DROP EACHEYE, #10 ML 6 Refills 01/15/25 Brimonidine Tartrate (Brimonidine Tartrate) 0.15 % Brigitte, 1 DROP OP TID, DROP 01/15/25 Folic Acid (Folic Acid) 1 Mg Tab, 1 MG PO for 30 Days, MG 01/15/25 Homeopathic Products (Theraworx Relief) 1 Liq Liq, 1 LIQ EX, LIQ 01/15/25 Chlorpromazine HCl (Chlorpromazine Hydrochlor) 25 Mg Tab, 25 MG PO, TAB 01/15/25 Rivaroxaban (XARELTO) 20 Mg Tab, 20 MG PO, TAB 01/15/25 Pantoprazole Sodium Sesquihydr (Protonix) 40 Mg Tab, 40 MG PO, #30 TAB 01/15/25 Mesalamine (DELZICOL) 400 Mg Cap, 400 MG OR, CAP 01/15/25 Hydrocodone-Acetaminophen (Hydrocodone Bitartrate/AC 5-325 mg) 1 Tab Tab, 1 TAB PO, TAB 01/15/25 Metoprolol Succinate (Metoprolol Succinate Er) 50 Mg Tab, 200 MG PO for 30 Days, MG 01/15/25 Bumetanide (Bumex) 2 Mg Tab, 2 MG PO DAILY 01/15/25 Information Source: Patient, Emergency Med Personnel Mode of Arrival: EMS Timing: Hours Duration: Since onset Prehospital treatment: Heating Element Builder, Treatment (4mg Zofran) Quality: Aching Vomitus: Food Particles Stool: Normal Severity: Moderate Recent: None Recent Hx of: None Pain Location: RLQ, LLQ Associated sign and symptoms: Nausea, Vomiting, Abdominal Pain Past Medical History PAST MEDICAL HISTORY: CHF, CVA, High Lipids, HTN Surgical History: Cholecystectomy, Tonsillectomy Family History Family History: Reviewed,noncontributory to illness, Unknown Social History Smoker: Non-Smoker Alcohol: Occasionally Drugs: Marijuana Lives In: Home Constitutional: denies: chills, diaphoresis, fatigue, fever, malaise, sweats, weakness, others EENTM: denies: blurred vision, double vision, ear bleeding, ear discharge, ear drainage, ear pain, ear ringing, eye pain, eye redness, hearing loss, mouth pain, mouth swelling, nasal discharge, nose bleeding, nose congestion, nose pain, photophobia, tearing, throat pain, throat swelling, voice changes, others Respiratory: denies: cough, hemoptysis, orthopnea, SOB at rest, shortness of breath, SOB with excertion, stridor, wheezing, others Cardiovascular: denies: chest pain, dizzy spells, diaphoresis, Dyspnea on exertion, edema, irregular heart beat, left arm pain, lightheadedness, palpitations, PND, syncope, others Gastrointestinal: reports: abdominal pain, nausea, vomiting; denies: abdomen distended, blood streaked bowels, constipated, diarrhea, dysphagia, difficulty swallowing, hematemesis, melena, poor appetite, poor fluid intake, rectal bleeding, rectal pain, others Genitourinary: denies: burning, dysuria, flank pain, frequency, hematuria, incontinence, penile discharge, penile sore, pain, testicle pain, testicle swelling, urgency, others Neurological: denies: dizziness, fainting, headache, left sided numbness, left sided weakness, numbness, paresthesia, pre-existing deficit, right sided numbness, right sided weakness, seizure, speech problems, tingling, tremors, weakness, others Musculoskeletal: denies: back pain, gout, joint pain, joint swelling, muscle pain, muscle stiffness, neck pain, others Integumetry: denies: bruises, change in color, change in hair/nails, dryness, laceration, lesions, lumps, rash, wounds, others Allergic/Immunocompromised: denies: Difficulty Healing, Frequent Infections, Hives, Itching, others Hematologic/Lymphatic: denies: anemia, blood clots, easy bleeding, easy bruising, swollen glands, others Endocrine: denies: excessive hunger, excessive sweating, excessive thirst, excessive urination, flushing, intolerance to cold, intolerance to heat, unexplained weight gain, unexplained weight loss, others Psychiatric: denies: anxiety, bipolar disorder, depression, hopeless, panic disorder, schizophrenia, sleepless, suicidal, others All Other Systems: Reviewed and Negative Physical Exam General Appearance: No Apparent Distress, Normal HEENT: Normal ENT Inspection, Pharynx Normal, TMs Normal Neck: Full Range of Motion, Non-Tender, Normal, Normal Inspection Respiratory: Chest Non-Tender, Lungs Clear, No Accessory Muscle Use, No Respir atory Distress, Normal Breath Sounds Cardiovascular: No Edema, No JVD, No Murmur, No Gallop, Normal Peripheral Pulses, Regular Rate/Rhythm Breast Exam: Deferred Gastrointestinal: No Organomegaly, Non Tender, No Pulsatile Mass, Normal Bowel Sounds, Soft Genitalia: Deferred Pelvic: Deferred Rectal: Deferred Extremities: No calf tenderness, Normal capillary refill, Normal inspection, Normal range of motion, Non-tender, No pedal edema Musculoskeletal : Apperance: Normal Neurologic: Alert, manager industrial II-XII nml as Tested, No Motor Deficits, Normal Affect, Normal Mood, No Sensory Deficits Cerebellar Function: Normal Reflexes: Normal Skin: Dry, Normal Color, Warm Lymphatic: No Adenopathy Was a procedure done? Was a procedure done?: No GI differential Dx Differential Diagnosis: Appendicitis, Constipation, Gastritis/PUD, Gastroenteritis, Hepatitis, Pancreatitis, Urinary Obstruction, UTI, Urolithiasis, Dehydration, Electrolyte Imbalance, Impaction, Malnutrition X-Ray, Labs, Meds, VS Vital Signs Date Time Temp Pulse Resp B/P (MAP) Pulse Ox O2 Delivery O2 Flow Rate FiO2 02/10/25 14:13 98.6 84 17 128/86 (100) 98 98.6 Lab Test 02/10/25 14:53 Range/Units White Blood Count 6.8 4.4-10.8 10^3/uL Red Blood Count 4.24 L 4.5-5.90 10^6/uL Hemoglobin 13.2 L 13.5-17.5 g/dL Hematocrit 39.4 L 41.0-53.0 % Mean Corpuscular Volume 92.9 80.0-100.0 fL Mean Corpuscular Hemoglobin 31.1 28.0-32.0 pg Mean Corpuscular Hemoglobin Concent 33.5 32.0-36.0 g/dL Red Cell Distribution Width 15.1 H 11.8-14.3 % Platelet Count 278 140-450 10^3/uL Mean Platelet Volume 8.1 6.9-10.8 fL Neutrophils (%) (Auto) 45.7 37.0-80.0 % Lymphocytes (%) (Auto) 36.7 10.0-50.0 % Monocytes (%) (Auto) 15.8 H 0.0-12.0 % Eosinophils (%) (Auto) 1.5 0.0-7.0 % Basophils (%) (Auto) 0.3 0.0-2.0 % Neutrophils # (Auto) 3.1 1.6-8.6 10 ^3/uL Lymphocytes # (Auto) 2.5 0.4-5.4 10 ^3/uL Monocytes # (Auto) 1.1 0-1.3 10 ^3/uL Eosinophils # (Auto) 0.1 0-0.8 10 ^3/uL Basophils # (Auto) 0 0-0.2 10 ^3/uL Nucleated Red Blood Cells 0.1 % Sodium Level 139 136-145 mmol/L Potassium Level 4.0 3.5-5.1 mmol/L Chloride Level 107 98-107 mmol/L Carbon Dioxide Level 22 20-31 mmol/L Anion Gap 10 5-15 Blood Urea Nitrogen 13 9-23 mg/dL Creatinine 1.67 H 0.700-1.30 mg/dL Glomerular Filtration Rate Calc 47 >90 mL/min BUN/Creatinine Ratio 7.8 L 10.0-20.0 Serum Glucose 118 H 74-106 mg/dL Calcium Level 9.9 8.7-10.4 mg/dL Time of 1ST Reevaluation: 14:18 Reevaluation 1ST: Unchanged Patient Education/Counseling: Diagnosis, Treatment Family Education/Counseling: No Family Present SEPSIS Sepsis Screen Physician Orders Urinalysis (02/10/25 14:26) Ct Ab Pel Wo Con-No Oral Or Iv (02/10/25 14:26) Vital Signs Date Time Temp Pulse Resp B/P (MAP) Pulse Ox O2 Delivery O2 Flow Rate FiO2 02/10/25 14:13 98.6 84 17 128/86 (100) 98 98.6 Laboratory Tests Test 02/10/25 14:53 White Blood Count 6.8 10^3/uL (4.4-10.8) Departure 1 Departure Time of Disposition: 18:12 (Patient presented with abdominal pain that was concerning for possible appendicits, gastritis, cholecystitis, colitis, gastroenteritis, sbo, or orther possible surgical emergency. Data: 1. I ordered and reviewed the result of at least 3 labs including a CBC, BMP, and Urinalysis. 2. I independently interpreted the following tests: CT Abdoment and Pelvis is concerning for intractable abdominal pain .Risk:This patient has a high risk of morbidity due to further diagnostic testing or treatment and may suffer from an acute abdominal process disorder. Workup reveals intractable abdominal pain and patient should be admitted for further workup. and possible expert consultation. ) Impression: Primary Impression: Intractable abdominal pain Additional Impression: Nausea and vomiting Qualified Codes: R11.2 - Nausea with vomiting, unspecified Disposition: ADMITTED INPATIENT Admit to: Med Surg Condition: Serious Critical Care Note Critical Care Time?: Yes Critical care comment: Intractable abdominal pain Authorized and Performed by: Jim Waters MD Total critical care time: Approximately 39 minutes Due to a high probability of clinically significant, life threatening deterioration, the patient required my highest level of preparedness to intervene emergently and I personally spent this critical care time directly and personally managing the patient. This critical care time included obtaining a history; examining the patient; pulse oximetry; ordering and review of studies; arranging urgent treatment with development of a management plan; evaluation of patient's response to treatment; frequent reassessment; and, discussions with other providers. This critical care time was performed to assess and manage the high probability of imminent, life-threatening deterioration that could result in multi-organ failure. It was exclusive of separately billable procedures and treating other patients and teaching time. Please see my other sections and the rest of the note for further information on patient assessment and treatment. Stability Stability form required: No Heart Score Heart Score: Heart Score Response (Comments) Value History N/A 0 EKG N/A 0 Age N/A 0 Risk Factors N/A 0 Troponin N/A 0 Total 0 I personally scribed for JIM WATERS MD ([email or web address]) on 02/10/25 at 14:01. Electronically submitted by Prosper Prasad ([email or web address]). JIM WATERS MD Feb 10, 2025 14:01
[2025-02-10 15:47] LABS: Hematocrit 39.4 % (41.0-53.0); Hemoglobin 13.2 g/dL (13.5-17.5); Mean Corpuscular Hemoglobin 31.1 pg (28.0-32.0); Mean Corpuscular Volume 92.9 fL (80.0-100.0); Nucleated Red Blood Cells % 0.1 %
[2025-02-10 15:50] LABS: Chloride 107 mmol/L (98-107); Potassium 4.0 mmol/L (3.5-5.1); Sodium 139 mmol/L (136-145)
[2025-02-10 15:51] LABS: Anion Gap 10 (5-15); Carbon Dioxide 22 mmol/L (20-31)
[2025-02-10 15:52] LABS: Calcium 9.9 mg/dL (8.7-10.4)
[2025-02-10 15:56] LABS: BUN/Creatinine Ratio 7.8 (10.0-20.0); Blood Urea Nitrogen 13 mg/dL (9-23)
[2025-02-10 15:59] LABS: Glucose 118 mg/dL (74-106)
--- NOTE | 2025-02-10 17:07 | DVH ---
Indication: lower abdominal pain Technique: CT axial images of the abdomen and pelvis are obtained without contrast. Coronal and sagit luis alberto reformats were obtained. Radiation Dose Information: CTDI volume is 24.5 mGy. Dose-length product is 1310 mGy*cm Comparison: CT CT AB PEL WO CON-NO ORAL OR IV on DOS: 11/26/24 FINDINGS: There is limited interpretation of the abdomen and pelvis without administration of intravenous contr ast. Lung bases demonstrate no pleural effusion. Adrenal glands, spleen unremarkable in shape. Fatty infiltration of the pancreas. Cholecystectomy. Liver unremarkable in shape. There is no hydronephrosis, nephrolithiasis. 8 mm left renal cysts. Small hiatal hernia. Small bowel loops are normal in caliber. Colonic diverticula. Moderate volume stool in the colon. Normal appendix. Bladder partially distended. No free pelvic fluid. No inguinal lymphadenopathy. No aggressive osseous process. [id number] thoracolumbar degenerative disc disease. IMPRESSION: Examination degraded by motion. Colonic diverticular disease. Cholecystectomy. Moderate volume stool in the colon. Other findings as described
[2025-02-10] MEDS: ONDANSETRON HCL 4 MG/2 ML VIAL IV ONE (18:19)
[2025-02-10] MEDS: MORPHINE SULFATE 4 MG/ML SYR/VIAL IV ONE (18:20)
[2025-02-10] MEDS: SODIUM CHLORIDE 0.9% 1,000 ML IV ONE (18:21)
[2025-02-10] MEDS ORDERED: ACETAMINOPHEN 325 MG TAB PO PRN (21:15)
[2025-02-10] MEDS ORDERED: NITROGLYCERIN 0.4 MG SL TAB SL PRN (21:15)
[2025-02-10] MEDS ORDERED: MORPHINE SULFATE INJ 2 MG/ml SYRG IV PRN (21:15)
[2025-02-10] MEDS ORDERED: ONDANSETRON HCL 4 MG/2 ML VIAL IV PRN (21:15)
[2025-02-10] MEDS: SACUBITRIL-VALSARTAN 24mg/26mg TAB PO SCH (22:30)
[2025-02-10] MEDS: ATORVASTATIN 20 MG TAB PO SCH (22:30)
[2025-02-10 23:08] VITALS: BP 155/63; PULSE 64; RESP 17; TEMP 97.8; O2SAT 98
[2025-02-10] MEDS: HYDROcodone-ACET 5/325MG TAB PO PRN (23:29)
--- NOTE | 2025-02-10 23:59 | DVHHP2 ---
History of Present Illness Reason for Visit: Abdominal pain History of Present Illness 59-year-old male presents for evaluation of abdominal pain that has been ongoing for the past one day. Describes the pain as lower abdominal nonradiating sharp with nausea, vomiting and diarrhea. Denies fever or chills. Past Medical History Hypertension, dyslipidemia, CVA, CHF Past Surgical History Tonsillectomy, cholecystectomy Family History Noncontributory Smoke: No ALCOHOL: occassional Drugs: Marijuana Lives: with Family Review of Systems Review of Systems Review of systems are currently negative otherwise addressed in HPI. Allergies: Coded Allergies: No Known Drug Allergy (Verified Allergy, Unknown, 11/26/24) Medications Current Medications Medications Dose Ordered Sig/Peyton Route Start Time Stop Time Status Last Admin Dose Admin Pantoprazole Sodium 40 mg DAILY IV 02/11/25 10:00 Atorvastatin Calcium 40 mg HS PO 02/10/25 22:00 02/10/25 22:30 40 MG Bumetanide 2 mg DAILY PO 02/11/25 10:00 Empaglifozin 10 mg DAILY PO 02/11/25 10:00 Rivaroxaban 20 mg QPM PO 02/11/25 18:00 Sacubitril/ Valsartan 1 tab BID PO 02/10/25 22:00 02/10/25 22:30 1 TAB Metoprolol Succinate 50 mg DAILY PO 02/11/25 10:00 Acetaminophen/ Hydrocodone Bitart 1 tab Q4HP PRN PO 02/10/25 21:15 02/10/25 23:29 1 TAB Ondansetron HCl 4 mg Q4HP PRN IV 02/10/25 21:15 Acetaminophen 650 mg Q6HP PRN PO 02/10/25 21:15 Nitroglycerin 0.4 mg Q5MINP PRN SL 02/10/25 21:15 Morphine Sulfate 2 mg Q30M PRN IV 02/10/25 21:15 Exam Vital Signs Vital Signs Date Time Temp Pulse Resp B/P (MAP) Pulse Ox O2 Delivery O2 Flow Rate FiO2 02/10/25 22:30 97.8 64 18 166/95 (118) 95 97.8 Exam Gen: 59-year-old male in mild distress. Skin: Warm, dry, normal color and texture, no rash. HEENT: Normocephalic atraumatic, mucous membranes moist and pink. Neck: Cervical and supraclavicular nodes normal without enlargement, trachea is midline, thyroid gland is normal without masses. Pulmonary: Clear to auscultation and percussion bilaterally. Cardiac: Regular rate and rhythm. No murmur Abdomen: Soft, nontender, nondistended, bowel sounds present all 4 quadrants, no guarding, no rigidity, no organomegaly. Extremities: No cyanosis, clubbing, no edema Neuro: Cranial nerves II through XII grossly intact, normal affect and speech, no focal motor deficits. Labs/Xrays ORDERING PHYSICIAN: JIM RODRIGUEZ MD PROCEDURE(s): ABPL - CT AB PEL WO CON-NO ORAL OR IV REASON: lower abdominal pain ORDER NUMBER(s): [id number], ACCESSION NUMBER(s): [id number] Indication: lower abdominal pain Technique: CT axial images of the abdomen and pelvis are obtained without contrast. Coronal and sagittal reformats were obtained. Radiation Dose Information: CTDI volume is 24.5 mGy. Dose-length product is 1310 mGy*cm Comparison: CT CT AB PEL WO CON-NO ORAL OR IV on DOS: 11/26/24 FINDINGS: There is limited interpretation of the abdomen and pelvis without administration of intravenous contrast. Lung bases demonstrate no pleural effusion. Adrenal glands, spleen unremarkable in shape. Fatty infiltration of the pancreas. Cholecystectomy. Liver unremarkable in shape. There is no hydronephrosis, nephrolithiasis. 8 mm left renal cysts. Small hiatal hernia. Small bowel loops are normal in caliber. Colonic diverticula. Moderate volume stool in the colon. Normal appendix. Bladder partially distended. No free pelvic fluid. No inguinal lymphadenopathy. No aggressive osseous process. [id number] thoracolumbar degenerative disc disease. IMPRESSION: Examination degraded by motion. Colonic diverticular disease. Cholecystectomy. Moderate volume stool in the colon. Other findings as described Labs Test 02/10/25 14:53 Range/Units White Blood Count 6.8 4.4-10.8 10^3/uL Red Blood Count 4.24 L 4.5-5.90 10^6/uL Hemoglobin 13.2 L 13.5-17.5 g/dL Hematocrit 39.4 L 41.0-53.0 % Mean Corpuscular Volume 92.9 80.0-100.0 fL Mean Corpuscular Hemoglobin 31.1 28.0-32.0 pg Mean Corpuscular Hemoglobin Concent 33.5 32.0-36.0 g/dL Red Cell Distribution Width 15.1 H 11.8-14.3 % Platelet Count 278 140-450 10^3/uL Mean Platelet Volume 8.1 6.9-10.8 fL Neutrophils (%) (Auto) 45.7 37.0-80.0 % Lymphocytes (%) (Auto) 36.7 10.0-50.0 % Monocytes (%) (Auto) 15.8 H 0.0-12.0 % Eosinophils (%) (Auto) 1.5 0.0-7.0 % Basophils (%) (Auto) 0.3 0.0-2.0 % Neutrophils # (Auto) 3.1 1.6-8.6 10 ^3/uL Lymphocytes # (Auto) 2.5 0.4-5.4 10 ^3/uL Monocytes # (Auto) 1.1 0-1.3 10 ^3/uL Eosinophils # (Auto) 0.1 0-0.8 10 ^3/uL Basophils # (Auto) 0 0-0.2 10 ^3/uL Nucleated Red Blood Cells 0.1 % Sodium Level 139 136-145 mmol/L Potassium Level 4.0 3.5-5.1 mmol/L Chloride Level 107 98-107 mmol/L Carbon Dioxide Level 22 20-31 mmol/L Anion Gap 10 5-15 Blood Urea Nitrogen 13 9-23 mg/dL Creatinine 1.67 H 0.700-1.30 mg/dL Glomerular Filtration Rate Calc 47 >90 mL/min BUN/Creatinine Ratio 7.8 L 10.0-20.0 Serum Glucose 118 H 74-106 mg/dL Calcium Level 9.9 8.7-10.4 mg/dL Lipase 39 12-53 U/L SEPSIS Sepsis Screen Date sepsis recognized/suspect: Feb 10, 2025 Time Sepsis recognized/suspect: 1357 Recent Procedure: No On Antibiotic Therapy: No Respiratory Rate >20: No Heart Rate >90: No Temp<36 C (96.8 F) or >38.3 C: No SBP <90 or MAP <65 mmHG: No New Acute Mental Status Change: No Is the patient on CPAP, BIPAP,: No Physician Orders Pantoprazole (Protonix) (02/11/25 10:00) Atorvastatin (Lipitor) (02/10/25 22:00) Bumetanide Tablet (Bumex Tablet) (02/11/25 10:00) Empagliflozin (Jardiance) (02/11/25 10:00) Rivaroxaban Tablet (Xarelto Tablet) (02/11/25 18:00) Sacubitril-Valsartan (Entresto 24-26 Mg (02/10/25 22:00) Metoprolol Xl Succinate (Toprol Xl) (02/11/25 10:00) * Gi Dvh Hand Leather Trimmer (02/10/25 21:01) Basic Metabolic Panel (02/11/25 04:00) Admit (02/10/25 21:01) Hydrocodone-Acet 5/325mg Tab ([place] 5/32 (02/10/25 21:15) Ondansetron Hcl (Zofran) (02/10/25 21:15) Condition: Stable (02/10/25 21:01) Acetaminophen Tablet (Tylenol Tablet) (02/10/25 21:15) Clear Liq Diet (02/11/25 Breakfast) Bedrest With Bathroom Privileg (02/10/25 21:01) Nitroglycerin Sublingual (Ntrostat Subli (02/10/25 21:15) Morphine Sulfate Injection (02/10/25 21:15) Stat Ekg For Chest Pain (02/10/25 21:01) Notify Md Of Changes From Base (02/10/25 21:01) Well Surveying Engineer For 24 Hours (02/10/25 21:01) Emergency Dysrhythmia Protocol (02/10/25 21:01) Rhythm Strips Once Every Shift (02/10/25 21:01) Oxygen By Nasal Cannula (02/10/25 21:01) Vital Signs Date Time Temp Pulse Resp B/P (MAP) Pulse Ox O2 Delivery O2 Flow Rate FiO2 02/10/25 22:30 97.8 64 18 166/95 (118) 95 97.8 02/10/25 19:33 62 19 134/67 02/10/25 18:20 74 18 121/82 02/10/25 18:17 97.6 74 18 121/82 (95) 95 97.6 02/10/25 18:17 74 Laboratory Tests Test 02/10/25 14:53 White Blood Count 6.8 10^3/uL (4.4-10.8) Medications Medications Dose Ordered Sig/Peyton Route Start Time Stop Time Status Last Admin Dose Admin Acetaminophen/ Hydrocodone Bitart 1 tab Q4HP PRN PO 02/10/25 21:15 02/10/25 23:29 1 TAB Atorvastatin Calcium 40 mg HS PO 02/10/25 22:00 02/10/25 22:30 40 MG Morphine Sulfate 4 mg ONCE ONCE IV 02/10/25 14:30 02/10/25 14:31 DC 02/10/25 18:20 4 MG Ondansetron HCl 4 mg ONCE ONCE IV 02/10/25 14:30 02/10/25 14:31 DC 02/10/25 18:19 4 MG Sacubitril/ Valsartan 1 tab BID PO 02/10/25 22:00 02/10/25 22:30 1 TAB Sodium Chloride 1,000 ml @ 1,000 mls/hr Q1H ONCE IV 02/10/25 14:30 02/10/25 15:29 DC 02/10/25 18:21 1,000 MLS/HR Assessment/Plan Assessment/Plan Assessment Assessment Acute abdominal pain Acute kidney injury Hypertension Plan Admit the patient to [facility] to the hospitalist Clear liquid diet GI consult Continue treatment per orders. Plan discussed with: Patient My Orders Orders - JAVI STODDARD [id number] Procedure Category Date Status Time Pantoprazole PHA 02/11/25 In Process (Protonix) 10:00 Atorvastatin (Lipitor) PHA 02/10/25 In Process 22:00 Bumetanide Tablet PHA 02/11/25 In Process (Bumex Tablet) 10:00 Empagliflozin PHA 02/11/25 In Process (Jardiance) 10:00 Rivaroxaban Tablet PHA 02/11/25 In Process (Xarelto Tablet) 18:00 Sacubitril-Valsartan PHA 02/10/25 In Process (Entresto 24-26 Mg 22:00 Metoprolol Xl PHA 02/11/25 In Process Succinate (Toprol Xl) 10:00 * Gi D[facility] Hand Leather Trimmer CONS 02/10/25 Transmitted 21:01 Basic Metabolic Panel LAB 02/11/25 Verified 04:00 Admit ADMIT 02/10/25 Transmitted 21:01 Hydrocodone-Acet PHA 02/10/25 In Process 5/325mg Tab ([place] 21:15 Ondansetron Hcl PHA 02/10/25 In Process (Zofran) 21:15 Condition: Stable YADI 02/10/25 In Process 21:01 Acetaminophen Tablet PHA 02/10/25 In Process (Tylenol Tablet) 21:15 Clear Liq Diet DIET 02/11/25 Transmitted Breakfast Bedrest With Bathroom YADI 02/10/25 In Process Privileg 21:01 Nitroglycerin PHA 02/10/25 In Process Sublingual (Ntrostat 21:15 Morphine Sulfate PHA 02/10/25 In Process Injection 21:15 Stat Ekg For Chest [facility] 02/10/25 In Process Pain 21:01 Notify Of Changes [facility] 02/10/25 In Process From Base 21:01 Well Surveying Engineer For [facility] 02/10/25 In Process 24 Hours 21:01 Emergency Dysrhythmia [facility] 02/10/25 In Process Protocol 21:01 Rhythm Strips Once [facility] 02/10/25 In Process Every Shift 21:01 Oxygen By Nasal RT 02/10/25 Transmitted Cannula 21:01 Date of Service: Feb 10, 2025 Billing Provider: JAVI STODDARD Common Visit Codes: [id number] INP/OBS CARE (MOD) JAVI STODDARD Feb 10, 2025 23:59
[2025-02-11] VITALS (8 sets, daily range): BP systolic 127–146; BP diastolic 56–82; PULSE 60–75; RESP 16–18; TEMP 97.8–98.1; O2SAT 94–97
[2025-02-11] MEDS: KETOROLAC TROMETH 30 MG/ML 1ML VIAL IV ONE (04:16)
[2025-02-11 07:05] LABS: Potassium 4.0 mmol/L (3.5-5.1); Sodium 142 mmol/L (136-145)
[2025-02-11 07:06] LABS: Anion Gap 9 (5-15); Carbon Dioxide 23 mmol/L (20-31)
[2025-02-11 07:07] LABS: Calcium 8.9 mg/dL (8.7-10.4)
[2025-02-11 07:11] LABS: BUN/Creatinine Ratio 10.5 (10.0-20.0); Blood Urea Nitrogen 16 mg/dL (9-23); Glucose 92 mg/dL (74-106)
[2025-02-11 07:12] LABS: Chloride 110 mmol/L (98-107)
[2025-02-11] MEDS: PANTOPRAZOLE 40 MG/10 ML VIAL INJ IV SCH (09:41)
[2025-02-11 09:42] LABS: Alanine Aminotransferase 26.0 U/L (7-40); Albumin 3.6 g/dL (3.2-4.8); Alkaline Phosphatase 93.0 U/L (46-116); Bilirubin, Total 0.8 mg/dL (0.2-1.0); Total Protein 6.0 g/dL (5.7-8.2)
[2025-02-11] MEDS: BUMETANIDE 1 MG TAB PO SCH (09:44)
[2025-02-11] MEDS: EMPAGLIFLOZIN 10 MG TAB PO SCH (09:44)
[2025-02-11] MEDS: METOPROLOL SUCCINATE XL 50 MG TAB PO SCH (09:44)
[2025-02-11 09:45] LABS: Bilirubin, Direct 0.3 mg/dL (<0.3)
[2025-02-11 09:45] LABS: Urine Protein, UAD Negative (Negative)
[2025-02-11] MEDS: MORPHINE SULFATE INJ 2 MG/ml SYRG IV PRN (12:34)
--- NOTE | 2025-02-11 13:11 | DVHINCON2 ---
GI Consult Consult Note GI consult note Date of Consultation: 02/11/2025 Chief Complaint: Abdominal pain Referring Physician: Bishnu LAN H&P: 59-year-old male admitted with lower abdominal pain for one day. Patient had nausea and vomiting two days ago, no hematemesis. No nausea and vomiting at this time. Also complaining of loose stool started one day ago, last bowel movement 2 hours ago which was watery in nature. Patient has history of ulcerative colitis, diagnosed in 2005, followed by [facility] in [place], last colonoscopy about one year ago. Patient also diagnosed with C diff colitis two years ago Past Medical History: Hypertension, dyslipidemia, CVA, CHF Past Surgical History: Tonsillectomy, cholecystectomy Social History: Smoke: No ALCOHOL: occassional Drugs: Marijuana Lives: with Family Family History: Noncontributory Review of Systems: Constitutional: no fever, chill, weight loss HEENT: no eye pain, no hearing loss, no oral lesion, no scleral icterus Heart: no chest pain, no chest pressure Lung: no cough, no dyspnea with exertion Abdomen: see HPI Physical exam: General: NAD, AAOX3 Chest: lung rogers clear to auscultation Heart: RRR, no murmur Abdomen: non-distended, no tenderness to palpation, +BS Labs: Labs Test 02/11/25 09:20 02/11/25 06:20 02/10/25 14:53 Range/Units Urine Color Yellow Yellow Urine Clarity Clear Clear Urine pH 5.5 5.0-9.0 Urine Specific [place] 1.028 1.001-1.035 Urine Protein Negative Negative Urine Ketones Negative Negative Urine Blood Negative Negative /uL Urine Nitrite Negative Negative Urine Bilirubin Negative Negative Urine Urobilinogen Normal Negative mg/dL Urine Leukocyte Esterase Negative Negative /uL Urine RBC <1 0 - 3 /hpf Urine Microscopic WBC 1 0-3 /HPF Urine Squamous Epithelial Cells Few <5 /hpf Urine Bacteria None seen None Seen /hpf Urine Glucose Normal Normal mg/dL Sodium Level 142 136-145 mmol/L Potassium Level 4.0 3.5-5.1 mmol/L Chloride Level 110 H 98-107 mmol/L Carbon Dioxide Level 23 20-31 mmol/L Anion Gap 9 5-15 Blood Urea Nitrogen 16 9-23 mg/dL Creatinine 1.53 H 0.700-1.30 mg/dL Glomerular Filtration Rate Calc 52 >90 mL/min BUN/Creatinine Ratio 10.5 10.0-20.0 Serum Glucose 92 74-106 mg/dL Calcium Level 8.9 8.7-10.4 mg/dL Total Bilirubin 0.8 0.2-1.0 mg/dL Direct Bilirubin 0.3 <0.3 mg/dL Aspartate Amino Transferase (AST) 25 13-40 U/L Alanine Aminotransferase (ALT) 26 7-40 U/L Alkaline Phosphatase 93 46-116 U/L Total Protein 6.0 5.7-8.2 g/dL Albumin 3.6 3.2-4.8 g/dL White Blood Count 6.8 4.4-10.8 10^3/uL Red Blood Count 4.24 L 4.5-5.90 10^6/uL Hemoglobin 13.2 L 13.5-17.5 g/dL Hematocrit 39.4 L 41.0-53.0 % Mean Corpuscular Volume 92.9 80.0-100.0 fL Mean Corpuscular Hemoglobin 31.1 28.0-32.0 pg Mean Corpuscular Hemoglobin Concent 33.5 32.0-36.0 g/dL Red Cell Distribution Width 15.1 H 11.8-14.3 % Platelet Count 278 140-450 10^3/uL Mean Platelet Volume 8.1 6.9-10.8 fL Neutrophils (%) (Auto) 45.7 37.0-80.0 % Lymphocytes (%) (Auto) 36.7 10.0-50.0 % Monocytes (%) (Auto) 15.8 H 0.0-12.0 % Eosinophils (%) (Auto) 1.5 0.0-7.0 % Basophils (%) (Auto) 0.3 0.0-2.0 % Neutrophils # (Auto) 3.1 1.6-8.6 10 ^3/uL Lymphocytes # (Auto) 2.5 0.4-5.4 10 ^3/uL Monocytes # (Auto) 1.1 0-1.3 10 ^3/uL Eosinophils # (Auto) 0.1 0-0.8 10 ^3/uL Basophils # (Auto) 0 0-0.2 10 ^3/uL Nucleated Red Blood Cells 0.1 % Lipase 39 12-53 U/L Imaging: CT abdomen pelvis IMPRESSION: Examination degraded by motion. Colonic diverticular disease. Cholecystectomy. Moderate volume stool in the colon. Other findings as described Assessment: Abdominal pain History of ulcerative colitis History of C diff colitis Diarrhea Plan: Discussed with Dr. Ortega Stool for bacterial culture and C diff Monitor labs Full liquid diet We will continue to monitor patient Thank you for this consult Date of Service: Feb 11, 2025 Billing Provider: JAVID CHOUDHURY Common Visit Codes: CONSULT ONLY Consultation Codes: [id number] CONSULT <60MIN JAVID CHOUDHURY Feb 11, 2025 13:11
[2025-02-11] MEDS: MAGNESIUM CITRATE SOLUTION 300 ML BTL PO ONE (14:06)
--- NOTE | 2025-02-11 16:40 | DVHPN2 ---
Subjective Patient is admitted here yesterday and CT of the abdomen and pelvis shows a significant stool burden. Complains of abdominal pain without bowel movement and requesting morphine. Changes from previous H/P or p: No Changes Objective Vitals Vital Signs Date Time Temp Pulse Resp B/P (MAP) Pulse Ox O2 Delivery O2 Flow Rate FiO2 02/11/25 13:00 98.1 70 17 127/82 (97) 96 98.1 02/11/25 08:00 Room Air* 0 21 Intake/Output Intake and Output 02/11/25 07:00 Intake Total 2600 ml Balance 2600 ml Intake Oral 1600 ml IV Total 1000 ml # Voids 2 # Bowel Movements 3 Exam Alert awake oriented x3. Comfortable sitting at the edge of the bed without distress. HEENT neck supple no JVD. Pupils equal round react to light. Heart regular rate and rhythm S1-S2. No murmurs. Lungs fair air movement. Chest tube will expansion. No rales or wheezes. Abdomen soft. Nondistended. Nontender positive bowel sounds. No organomegaly. Extremities no edema positive pulses. Medications Current Medications Medications Dose Ordered Sig/Peyton Route Start Time Stop Time Status Last Admin Dose Admin Pantoprazole Sodium 40 mg DAILY IV 02/11/25 10:00 02/11/25 09:41 40 MG Atorvastatin Calcium 40 mg HS PO 02/10/25 22:00 02/10/25 22:30 40 MG Bumetanide 2 mg DAILY PO 02/11/25 10:00 02/11/25 09:44 2 MG Empaglifozin 10 mg DAILY PO 02/11/25 10:00 02/11/25 09:44 10 MG Rivaroxaban 20 mg QPM PO 02/11/25 18:00 Sacubitril/ Valsartan 1 tab BID PO 02/10/25 22:00 02/11/25 09:41 1 TAB Metoprolol Succinate 50 mg DAILY PO 02/11/25 10:00 02/11/25 09:44 50 MG Acetaminophen/ Hydrocodone Bitart 1 tab Q4HP PRN PO 02/10/25 21:15 02/10/25 23:29 1 TAB Ondansetron HCl 4 mg Q4HP PRN IV 02/10/25 21:15 Acetaminophen 650 mg Q6HP PRN PO 02/10/25 21:15 Nitroglycerin 0.4 mg Q5MINP PRN SL 02/10/25 21:15 Morphine Sulfate 2 mg Q30M PRN IV 02/10/25 21:15 Clonidine HCl 0.1 mg Q6HP PRN PO 02/11/25 00:00 Morphine Sulfate 2 mg Q4HPRN PRN IV 02/11/25 12:15 02/11/25 12:34 2 MG Laboratory Results Laboratory Tests 02/10/25 14:53 02/11/25 06:20 Chemistry Test 02/11/25 06:20 Albumin 3.6 g/dL (3.2-4.8) Calcium Level 8.9 mg/dL (8.7-10.4) Total Protein 6.0 g/dL (5.7-8.2) LFT Test 02/11/25 06:20 Alanine Aminotransferase (ALT) 26 U/L (7-40) Alkaline Phosphatase 93 U/L (46-116) Aspartate Amino Transferase (AST) 25 U/L (13-40) Direct Bilirubin 0.3 mg/dL (<0.3) Total Bilirubin 0.8 mg/dL (0.2-1.0) Urinalysis Test 02/11/25 09:20 Urine Color Yellow (Yellow) Urine Clarity Clear (Clear) Urine pH 5.5 (5.0-9.0) Urine Specific [place] 1.028 (1.001-1.035) Urine Protein Negative (Negative) Urine Ketones Negative (Negative) Urine Blood Negative /uL (Negative) Urine Nitrite Negative (Negative) Urine Bilirubin Negative (Negative) Urine Urobilinogen Normal mg/dL (Negative) Urine Leukocyte Esterase Negative /uL (Negative) Urine RBC <1 /hpf (0 - 3) Urine Microscopic WBC 1 /HPF (0-3) Urine Squamous Epithelial Cells Few /hpf (<5) Urine Bacteria None seen /hpf (None Seen) Urine Glucose Normal mg/dL (Normal) Microbiology Microbiology Date/Time Source Procedure Growth Status 02/11/25 00:31 Nose MRSA Screen - Final Complete Assessment/Plan Assessment/Plan Based on CT scan results and his presentation appears abdominal pain is related to call lung constipation. Patient apparently had a colonoscopy EGD last 1-2 years and reported to be normal. I will start him on Mag citrate as a laxative. Start him on daily stool softeners. Otherwise advance his diet. Continue rest of supportive care and treatment. We will check his thyroid panel. Otherwise follow clinical management per clinical course. Discussed with the patient regarding care plan. Plan discussed with: Patient My Orders Orders - MAGDALENO FRANCO MD Procedure Category Date Status Time Morphine Sulfate PHA 02/11/25 In Process Injection 12:15 Basic Metabolic Panel LAB 02/12/25 Verified 04:00 Problem List: (1) Intractable abdominal pain (2) Intractable pain (3) ERVIN (acute kidney injury) Date of Service: Feb 11, 2025 Billing Provider: MAGDALENO FRANCO MD Common Visit Codes: [id number] INP/OBS CARE(MOD) MAGDALENO FRANCO MD Feb 11, 2025 16:40
[2025-02-11] MEDS: RIVAROXABAN 20 MG TAB PO SCH (18:28)
[2025-02-11] MEDS: SENNA 8.6 MG TAB PO SCH (21:50)
[2025-02-12 01:00] VITALS: BP 132/51; PULSE 63; RESP 20; TEMP 98.1; O2SAT 96
[2025-02-12 05:06] VITALS: BP 150/77; PULSE 55; RESP 20; TEMP 98; O2SAT 96
[2025-02-12 08:00] VITALS: RESP 20
[2025-02-12 08:06] LABS: Anion Gap 9 (5-15); Carbon Dioxide 24 mmol/L (20-31); Chloride 106 mmol/L (98-107); Potassium 3.7 mmol/L (3.5-5.1); Sodium 139 mmol/L (136-145)
[2025-02-12 08:07] LABS: Calcium 9.3 mg/dL (8.7-10.4)
[2025-02-12 08:12] LABS: BUN/Creatinine Ratio 8.7 (10.0-20.0); Blood Urea Nitrogen 13 mg/dL (9-23); Glucose 89 mg/dL (74-106)
[2025-02-12 09:00] VITALS: BP 139/52; PULSE 62; RESP 16; TEMP 98.2; O2SAT 95
[2025-02-12] MEDS ORDERED: SENN-105 PO (12:32)
--- NOTE | 2025-02-12 12:34 | DVHDS2 ---
Discharge Summary Date of Admission Feb 10, 2025 at 21:01 Date of Discharge: Feb 12, 2025 Labs/Diagnostic Data: Laboratory Results Test 02/12/25 07:43 02/11/25 09:20 02/11/25 06:20 02/10/25 14:53 Sodium Level 139 mmol/L (136-145) Potassium Level 3.7 mmol/L (3.5-5.1) Chloride Level 106 mmol/L (98-107) Carbon Dioxide Level 24 mmol/L (20-31) Anion Gap 9 (5-15) Blood Urea Nitrogen 13 mg/dL (9-23) Creatinine 1.50 mg/dL (0.700-1.30) Glomerular Filtration Rate Calc 53 mL/min (>90) BUN/Creatinine Ratio 8.7 (10.0-20.0) Serum Glucose 89 mg/dL (74-106) Calcium Level 9.3 mg/dL (8.7-10.4) Urine Color Yellow (Yellow) Urine Clarity Clear (Clear) Urine pH 5.5 (5.0-9.0) Urine Specific [place] 1.028 (1.001-1.035) Urine Protein Negative (Negative) Urine Ketones Negative (Negative) Urine Blood Negative /uL (Negative) Urine Nitrite Negative (Negative) Urine Bilirubin Negative (Negative) Urine Urobilinogen Normal mg/dL (Negative) Urine Leukocyte Esterase Negative /uL (Negative) Urine RBC <1 /hpf (0 - 3) Urine Microscopic WBC 1 /HPF (0-3) Urine Squamous Epithelial Cells Few /hpf (<5) Urine Bacteria None seen /hpf (None Seen) Urine Glucose Normal mg/dL (Normal) Total Bilirubin 0.8 mg/dL (0.2-1.0) Direct Bilirubin 0.3 mg/dL (<0.3) Aspartate Amino Transferase (AST) 25 U/L (13-40) Alanine Aminotransferase (ALT) 26 U/L (7-40) Alkaline Phosphatase 93 U/L (46-116) Total Protein 6.0 g/dL (5.7-8.2) Albumin 3.6 g/dL (3.2-4.8) Thyroid Stimulating Hormone (TSH) 2.00 uIU/mL (0.55-4.78) Free Thyroxine (T4) Calculated 0.99 ng/dL (0.89-1.76) White Blood Count 6.8 10^3/uL (4.4-10.8) Red Blood Count 4.24 10^6/uL (4.5-5.90) Hemoglobin 13.2 g/dL (13.5-17.5) Hematocrit 39.4 % (41.0-53.0) Mean Corpuscular Volume 92.9 fL (80.0-100.0) Mean Corpuscular Hemoglobin 31.1 pg (28.0-32.0) Mean Corpuscular Hemoglobin Concent 33.5 g/dL (32.0-36.0) Red Cell Distribution Width 15.1 % (11.8-14.3) Platelet Count 278 10^3/uL (140-450) Mean Platelet Volume 8.1 fL (6.9-10.8) Neutrophils (%) (Auto) 45.7 % (37.0-80.0) Lymphocytes (%) (Auto) 36.7 % (10.0-50.0) Monocytes (%) (Auto) 15.8 % (0.0-12.0) Eosinophils (%) (Auto) 1.5 % (0.0-7.0) Basophils (%) (Auto) 0.3 % (0.0-2.0) Neutrophils # (Auto) 3.1 10 ^3/uL (1.6-8.6) Lymphocytes # (Auto) 2.5 10 ^3/uL (0.4-5.4) Monocytes # (Auto) 1.1 10 ^3/uL (0-1.3) Eosinophils # (Auto) 0.1 10 ^3/uL (0-0.8) Basophils # (Auto) 0 10 ^3/uL (0-0.2) Nucleated Red Blood Cells 0.1 % Lipase 39 U/L (12-53) Other Laboratory Tests 02/12/25 07:43 02/10/25 14:53 Brief Hx & Hospital Course: 59-year-old male brought in by EMS presents with a chief complaint of abdominal pain with associated nausea and vomiting. Patient states that his nausea and vomiting began last night, but his abdomen pain began x 2 hours ago. Patient had 4 episodes of emesis with EMS and was given 4mg Zofran. Patient reports that his pain is localized to his bilateral lower quadrants, nonradiating, describes as aching, and rates his pain a 5/10. He is admitted and evaluated by presales engineer for his abdominal symptoms. Patient noted to have stool burden in the colon on the CT. [place] causing her symptoms. Patient received laxatives including Mag citrate with which he had a good bowel movements. Subsequently his abdominal pain has resolved. Patient counseled and educated regarding constipation and advised to keep his bowels regular. He is thyroid panel checked and is normal. Patient is otherwise resumed on his chronic medications while in the hospital. Overall stable tolerating diet. Back to baseline normal status. Therefore has been discharged home in stable condition. I have talked with the patient regarding hospital diagnosis, CT scan results, discharge medications, discharge instructions and follow-up plan of care. He has verbalized understanding of these and agree with care plan as outlined. Consults/Reason for consult Imaging: CT abdomen pelvis IMPRESSION: Examination degraded by motion. Colonic diverticular disease. Cholecystectomy. Moderate volume stool in the colon. Other findings as described Assessment: Abdominal pain History of ulcerative colitis History of C diff colitis Diarrhea Plan: Discussed with Dr. Ortega Stool for bacterial culture and C diff Monitor labs Full liquid diet We will continue to monitor patient Thank you for this consult Date of Service: Feb 11, 2025 Billing Provider: JAVID CHOUDHURY Common Visit Codes: CONSULT ONLY Consultation Codes: [id number] CONSULT <60MIN Condition at Discharge: Stable Final Diagnosis/Problems List ABDOMINAL PAIN, CONSTIPATION, acute kidney injury, hypertension, chronic congestive heart failure Discharge Disposition: Home Discharge Instruct/Medications Diet: Consistent carbohydrate, Cardiac 2g Na,low cholest Activity: No Restrictions, As Tolerated Follow Up/Referral: PCP NEXT WEEK Medications: PRESCRIBED AND HOME MEDS New Medications: Senna (Senna) 8.6 Mg Tab 8.6 MG PO QPM, #30 TAB Continued Medications: Atorvastatin Calcium (Atorvastatin Calcium) 40 Mg Tab 1 TAB PO, #30 TAB 5 Refills Baclofen (Baclofen) 20 Mg Tab 1 TAB PO, #90 TAB 2 Refills Brimonidine Tartrate (Brimonidine Tartrate) 0.15 % Brigitte 1 DROP OP TID, DROP Bumetanide (Bumex) 2 Mg Tab 2 MG PO DAILY Carisoprodol (Soma) 250 Mg Tab 250 MG PO Q8HPRN PRN, #30 TAB Chlorpromazine HCl (Chlorpromazine Hydrochlor) 25 Mg Tab 25 MG PO, TAB Dicyclomine Hcl (Bentyl Capsule) 10 Mg Cp 1 CAP PO, #90 CAP 11 Refills Dorzolamide-Timolol (Dorzolamide Hcl/Timolol M) 1 Ml Brigitte 1 DROP EACHEYE, #10 ML 6 Refills Empagliflozin (Jardiance) 10 Mg Tab 10 MG PO, TAB Folic Acid (Folic Acid) 1 Mg Tab 1 MG PO for 30 Days, MG Gabapentin (Gabapentin) 300 Mg Cap 300 MG PO for 30 Days, MG Homeopathic Products (Theraworx Relief) 1 Liq Liq 1 LIQ EX, LIQ Hydrocodone-Acetaminophen (Hydrocodone Bitartrate/AC 5-325 mg) 1 Tab Tab 1 TAB PO, TAB Magnesium Oxide (Magnesium Oxide) 400 Mg Tab 1 TAB PO, #30 TAB 5 Refills Mesalamine (Delzicol) 400 Mg Cap 400 MG OR, CAP Metoprolol Succinate (Metoprolol Succinate Er) 50 Mg Tab 200 MG PO for 30 Days, MG Pantoprazole Sodium Sesquihydr (Protonix) 40 Mg Tab 40 MG PO, #30 TAB Rivaroxaban (Xarelto) 20 Mg Tab 20 MG PO, TAB Sacubitril-Valsartan (Entresto 97-103 mg) 1 Tab Tab 1 TAB PO, TAB Spironolactone (Spironolactone) 25 Mg Tab 1 TAB PO, #90 TAB 1 Refill Tramadol HCl (Tramadol HCl) 50 Mg Tab 50 MG PO, TAB Scheduled Brimonidine Tartrate (Brimonidine Tartrate), 1 DROP OP TID, (Reported) Bumetanide (Bumex), 2 MG PO DAILY, (Reported) Senna (Senna), 8.6 MG PO QPM Scheduled PRN Carisoprodol (Soma), 250 MG PO Q8HPRN PRN Miscellaneous Medications Atorvastatin Calcium (Atorvastatin Calcium), 1 TAB PO, (Reported) Baclofen (Baclofen), 1 TAB PO, (Reported) Chlorpromazine HCl (Chlorpromazine Hydrochlor), 25 MG PO, (Reported) Dicyclomine Hcl (Bentyl Capsule), 1 CAP PO, (Reported) Dorzolamide-Timolol (Dorzolamide Hcl/Timolol M), 1 DROP EACHEYE, (Reported) Empagliflozin (Jardiance), 10 MG PO, (Reported) Folic Acid (Folic Acid), 1 MG PO, (Reported) Gabapentin (Gabapentin), 300 MG PO, (Reported) Homeopathic Products (Theraworx Relief), 1 LIQ EX, (Reported) Hydrocodone-Acetaminophen (Hydrocodone Bitartrate/AC 5-325 mg), 1 TAB PO, (Reported) Magnesium Oxide (Magnesium Oxide), 1 TAB PO, (Reported) Mesalamine (Delzicol), 400 MG OR, (Reported) Metoprolol Succinate (Metoprolol Succinate Er), 200 MG PO, (Reported) Pantoprazole Sodium Sesquihydr (Protonix), 40 MG PO, (Reported) Rivaroxaban (Xarelto), 20 MG PO, (Reported) Sacubitril-Valsartan (Entresto 97-103 mg), 1 TAB PO, (Reported) Spironolactone (Spironolactone), 1 TAB PO, (Reported) Tramadol HCl (Tramadol HCl), 50 MG PO, (Reported) Discharge Statement: "Patient was advised to return to the ER or call 911 if any headaches, dizziness, shortness of breath, chest pain, abdominal pain, bleeding, fevers, or worsening of medical condition. Patient was counseled about treatment plan, medications, possible side effects, patientverbalized understanding. All questions were answered to the best of my ability. This discharge took greater then 30 minutes in planning, reviewing documentation, counseling the patient, and discussing with other team members." ASSESSMENT ASSESSMENT Assessment ABDOMINAL PAIN, CONSTIPATION Date of Service: Feb 12, 2025 Billing Provider: MAGDALENO FRANCO MD Common Visit Codes: [id number] DISCH DAY <30MIN MAGDALENO FRANCO MD Feb 12, 2025 12:34
[2025-02-12 13:56] VITALS: BP 139/52; PULSE 62; RESP 20; TEMP 36.8
== END 2025-02-12 14:36 | disposition home or self-care (01) | DRG 247 ==
LOC: EDBD 13:50 → ER 13:50 → OVERFLOW 21:01 → CENTRAL 21:06
PROVIDERS: ADMIT Hospitalist; ATTEND Hospitalist
DX: K56.41 Fecal impaction (principal); N17.9 Acute kidney failure, unspecified; I50.9 Heart failure, unspecified; E78.5 Hyperlipidemia, unspecified; I11.0 Hypertensive heart disease with heart failure; K51.90 Ulcerative colitis, unspecified, without complications; Z86.73 Personal history of transient ischemic attack (TIA), and cerebral infarction without residual deficits; Z90.49 Acquired absence of other specified parts of digestive tract; Z86.19 Personal history of other infectious and parasitic diseases
CPT/HCPCS: 36415; 74176; 80048; 80076; 81001; 83690; 84439; 84443; 85025; 87081; 96361; 96374; 96375; 99291; G0378; J1885; J2405; J2470

== ENCOUNTER 2025-05-20 15:04 | Inpatient (IN) | payer OTHER ==
[~2025-05-20] VITALS: Ht 182.9 cm; Wt 114.0 kg
[~2025-05-20 15:04] MED LIST changes: -MESA400C OR; +MESA400C PO; +SENN-105 PO
--- NOTE | 2025-05-20 15:11 | ED.PDOC ---
History of Present Illness HPI Comments 60-year-old male brought by paramedics because he was having abdominal pain. Abdominal pain / with no radiation of the pain. He does have a history of ulcerative colitis. He he had similar pain few days ago where he was seen at [facility] in [place] was discharged after pain relief. Patient was never sent home with any medication. He does have a history of ulcer colitis CHF CVAs coronary artery disease. Denies any other symptoms. Time Seen by MD: 15:05 Reviewed Notes: Nurses Notes, Medications, Allergies Allergies: Coded Allergies: No Known Drug Allergy (Verified Allergy, Unknown, 11/26/24) Home Meds Active Scripts Senna (Senna) 8.6 Mg Tab, 8.6 MG PO QPM, #30 TAB Prov:MAGDALENO FRANCO MD 02/12/25 Carisoprodol (Soma) 250 Mg Tab, 250 MG PO Q8HPRN PRN, #30 TAB Prov:VIDAL HERNANDEZ MD 11/26/24 Reported Medications Dicyclomine Hcl (BENTYL CAPSULE) 10 Mg Cp, 1 CAP PO, #90 CAP 11 Refills 01/15/25 Baclofen (Baclofen) 20 Mg Tab, 1 TAB PO, #90 TAB 2 Refills 01/15/25 Gabapentin (Gabapentin) 300 Mg Cap, 300 MG PO for 30 Days, MG 01/15/25 Magnesium Oxide (MAGNESIUM OXIDE) 400 Mg Tab, 1 TAB PO, #30 TAB 5 Refills 01/15/25 Tramadol HCl (Tramadol HCl) 50 Mg Tab, 50 MG PO, TAB 01/15/25 Empagliflozin (Jardiance) 10 Mg Tab, 10 MG PO, TAB 01/15/25 Atorvastatin Calcium (ATORVASTATIN CALCIUM) 40 Mg Tab, 1 TAB PO, #30 TAB 5 Refills 01/15/25 Spironolactone (Spironolactone) 25 Mg Tab, 1 TAB PO, #90 TAB 1 Refill 01/15/25 Sacubitril-Valsartan (Entresto 97-103 mg) 1 Tab Tab, 1 TAB PO, TAB 01/15/25 Dorzolamide-Timolol (Dorzolamide Hcl/Timolol M) 1 Ml Brigitte, 1 DROP EACHEYE, #10 ML 6 Refills 01/15/25 Brimonidine Tartrate (Brimonidine Tartrate) 0.15 % Brigitte, 1 DROP OP TID, DROP 01/15/25 Folic Acid (Folic Acid) 1 Mg Tab, 1 MG PO for 30 Days, MG 01/15/25 Homeopathic Products (Theraworx Relief) 1 Liq Liq, 1 LIQ EX, LIQ 01/15/25 Chlorpromazine HCl (Chlorpromazine Hydrochlor) 25 Mg Tab, 25 MG PO, TAB 01/15/25 Rivaroxaban (XARELTO) 20 Mg Tab, 20 MG PO, TAB 01/15/25 Pantoprazole Sodium Sesquihydr (Protonix) 40 Mg Tab, 40 MG PO, #30 TAB 01/15/25 Mesalamine (DELZICOL) 400 Mg Cap, 400 MG OR, CAP 01/15/25 Hydrocodone-Acetaminophen (Hydrocodone Bitartrate/AC 5-325 mg) 1 Tab Tab, 1 TAB PO, TAB 01/15/25 Metoprolol Succinate (Metoprolol Succinate Er) 50 Mg Tab, 200 MG PO for 30 Days, MG 01/15/25 Bumetanide (Bumex) 2 Mg Tab, 2 MG PO DAILY 01/15/25 Information Source: Patient, Emergency Med Personnel Mode of Arrival: EMS Severity: Moderate Timing: Days Duration: Since onset Past Medical History PAST MEDICAL HISTORY: CHF, CVA, High Lipids, HTN Surgical History: Cholecystectomy, Tonsillectomy Family History Family History: Reviewed,noncontributory to illness, Unknown Social History Smoker: Non-Smoker Alcohol: Occasionally Drugs: Marijuana Lives In: Home Constitutional: denies: chills, diaphoresis, fatigue, fever, malaise, sweats, weakness, others EENTM: denies: blurred vision, double vision, ear bleeding, ear discharge, ear drainage, ear pain, ear ringing, eye pain, eye redness, hearing loss, mouth pain, mouth swelling, nasal discharge, nose bleeding, nose congestion, nose pain, photophobia, tearing, throat pain, throat swelling, voice changes, others Respiratory: denies: cough, hemoptysis, orthopnea, SOB at rest, shortness of breath, SOB with excertion, stridor, wheezing, others Cardiovascular: denies: chest pain, dizzy spells, diaphoresis, Dyspnea on exertion, edema, irregular heart beat, left arm pain, lightheadedness, palpita tions, PND, syncope, others Gastrointestinal: reports: abdominal pain; denies: abdomen distended, blood streaked bowels, constipated, diarrhea, dysphagia, difficulty swallowing, hematemesis, melena, nausea, poor appetite, poor fluid intake, rectal bleeding, rectal pain, vomiting, others Genitourinary: denies: burning, dysuria, flank pain, frequency, hematuria, incontinence, penile discharge, penile sore, pain, testicle pain, testicle swelling, urgency, others Neurological: denies: dizziness, fainting, headache, left sided numbness, left sided weakness, numbness, paresthesia, pre-existing deficit, right sided numbness, right sided weakness, seizure, speech problems, tingling, tremors, weakness, others Musculoskeletal: denies: back pain, gout, joint pain, joint swelling, muscle pain, muscle stiffness, neck pain, others Integumetry: denies: bruises, change in color, change in hair/nails, dryness, laceration, lesions, lumps, rash, wounds, others Allergic/Immunocompromised: denies: Difficulty Healing, Frequent Infections, Hives, Itching, others Hematologic/Lymphatic: denies: anemia, blood clots, easy bleeding, easy bruising, swollen glands, others Endocrine: denies: excessive hunger, excessive sweating, excessive thirst, excessive urination, flushing, intolerance to cold, intolerance to heat, unexplained weight gain, unexplained weight loss, others Psychiatric: denies: anxiety, bipolar disorder, depression, hopeless, panic dis order, schizophrenia, sleepless, suicidal, others Physical Exam General Appearance: Moderate Distress HEENT: Normal ENT Inspection, Pharynx Normal, TMs Normal Neck: Full Range of Motion, Non-Tender, Normal, Normal Inspection Respiratory: Chest Non-Tender, Lungs Clear, No Accessory Muscle Use, No Respiratory Distress, Normal Breath Sounds Cardiovascular: No Edema, No JVD, No Murmur, No Gallop, Normal Peripheral Pulses, Tachycardia Breast Exam: Deferred Gastrointestinal: Diffuse Genitalia: Deferred Pelvic: Deferred Rectal: Deferred Extremities: No calf tenderness, Pedal edema Musculoskeletal : Apperance: Normal Neurologic: Alert Cerebellar Function: NOT DONE Reflexes: NOT DONE Skin: Normal Color Peripheral Pulses: 3+ Radial (R), 3+ Radial (L) Lymphatic: No Adenopathy Was a procedure done? Was a procedure done?: No EKG EKG : Pulse Rate (adult): 101 Cardiac Rhythm: ST Differential Dx Considerations may include: Ulcerative colitis Electrolyte imbalance X-Ray, Labs, Meds, VS Patient alert. Complaining of abdominal pain. Vitals stable. Answering questions. Abdomen is distended. Possible flare-up. Establish intravenous access. Careful in giving fluids because of his CHF. EKG reviewed does not show any acute changes. Explained to the patient. Continue to monitor. Time of 1ST Reevaluation: 15:10 Reevaluation 1ST: Unchanged Patient Education/Counseling: Diagnosis, Treatment, Prognosis Family Education/Counseling: No Family Present SEPSIS Sepsis Screen Physician Orders Troponin-I Hs (05/20/25 15:11) Complete Blood Count (05/20/25 15:11) Comprehensive Metabolic Panel (05/20/25 15:11) B-Type Natriuretic Peptide (05/20/25 15:11) Chest Portable (05/20/25 15:11) Urinalysis (05/20/25 15:11) Sodium Chloride 0.9% (05/20/25 15:15) Ct Ab Pel Wo Con-No Oral Or Iv (05/20/25 15:11) Departure 1 Departure Time of Disposition: 15:11 Impression: Primary Impression: Intractable abdominal pain Disposition: ADMITTED INPATIENT Admit to: Med Surg Condition: Guarded Critical Care Note Critical Care Time?: No Stability Stability form required: No Heart Score Heart Score: Heart Score Response (Comments) Value History Slightly Suspicious 0 EKG Normal 0 Age 45-64 1 Risk Factors >3 or Hx ASHD 2 Troponin Normal limit 0 Total 3 ZORAN OLIVAREZ MD May 20, 2025 15:11
[2025-05-20 15:31] LABS: Hematocrit 37.3 % (41.0-53.0); Hemoglobin 12.3 g/dL (13.5-17.5); Mean Corpuscular Hemoglobin 30.6 pg (28.0-32.0); Mean Corpuscular Volume 92.5 fL (80.0-100.0); Nucleated Red Blood Cells % 0.2 %
[2025-05-20 15:50] LABS: Albumin 4.2 g/dL (3.2-4.8); Alkaline Phosphatase 109 U/L (46-116); Anion Gap 13 (5-15); BUN/Creatinine Ratio 12.6 (10.0-20.0); Bilirubin, Total 0.4 mg/dL (0.2-1.0); Blood Urea Nitrogen 22 mg/dL (9-23); Calcium 8.9 mg/dL (8.7-10.4); Carbon Dioxide 23 mmol/L (20-31); Chloride 105 mmol/L (98-107); Potassium 3.7 mmol/L (3.5-5.1); Sodium 141 mmol/L (136-145); Total Protein 7.2 g/dL (5.7-8.2)
[2025-05-20 15:51] LABS: Alanine Aminotransferase 57 U/L (7-40); Glucose 116 mg/dL (74-106)
--- NOTE | 2025-05-20 15:52 | DVH ---
CLINICAL HISTORY: sob TECHNIQUE: Single view of the chest was obtained. COMPARISON: XY CHEST PORTABLE on DOS: 11/17/24 FINDINGS: The heart size and pulmonary vasculature are normal. The lungs are clear. IMPRESSION: NO ACUTE CARDIOPULMONARY PROCESS.
--- NOTE | 2025-05-20 16:15 | DVH ---
Exam: CT CT AB PEL WO CON-NO ORAL OR IV History: colitis Comparison Study: CT CT AB PEL WO CON-NO ORAL OR IV on DOS: 02/10/25, CT CT AB PEL WO CON-NO ORAL OR IV on DOS: 11/26/24 TECHNIQUE: Multidetector CT of the abdomen and pelvis without IV contrast. Axial, coronal and sagitta l multiplanar reformats were obtained from the axial data set by the technologist. Radiation Dose Information: CT Dose: CTDI volume is 23.7 mGy. Dose-length product is 1422.88 mGy*cm FINDINGS: The lung bases are clear. Partially visualized heart is unremarkable. Status post cholecystectomy. Mild hepatomegaly with hepatic steatosis. Otherwise, liver, spleen, lewis creas and adrenal glands are unremarkable. Kidneys and ureters are unremarkable. Mild wall thickening of the Urinary bladder which is most like ly from inadequate distention. Prostate measures 3.4 x 5.3 by 3.6 cm. Mild wall thickening of the distal esophagus. Gastric wall thickening. Multiple hypodense round densi ties within the stomach which may represent ingested material. The small bowel loops are unremarkable . Appendix is unremarkable. Colonic diverticulosis without diverticulitis. Small to moderate amount o f fecal material within the colon. No evidence of intraperitoneal free air or free fluid. No evidence of aortic aneurysm. No significant lymphadenopathy. Small fat containing bilateral inguinal hernias. Small fat containing umbilical hernia. The soft tiss ues are unremarkable. No evidence of acute osseous abnormalities. IMPRESSION: Mild wall thickening of the distal esophagus with mild wall thickening of the stomach. Correlate for esophagitis and gastritis respectively. Colonic diverticulosis without diverticulitis. Mild hepatomegaly with hepatic steatosis.
[2025-05-20 16:32] LABS: Urine Protein, UAD Negative (Negative)
[2025-05-20 17:11] VITALS: PULSE 105; RESP 18; O2SAT 93
[2025-05-20] MEDS: PANTOPRAZOLE 40 MG/10 ML VIAL INJ IV ONE (17:25)
[2025-05-20] MEDS: KETOROLAC TROMETH 30 MG/ML 1ML VIAL IV ONE (17:34)
[2025-05-20] MEDS: SODIUM CHLORIDE 0.9% 1,000 ML IV ONE (17:49)
--- NOTE | 2025-05-20 18:47 | ECG ---
[facility] Test Date: 2025-05-20 Test Time: 15:08:28 Pat Name: JOSE PEDRO Department: [facility] ED Patient ID: [facility]-[id number] Room: 0204 Gender: M [employer] Spotter: STEPHON : 1965 Requested By: ZORAN OLIVAREZ Order Number: [id number] Reading MD: Diogo Wilkins Measurements Intervals [place] Rate: 101 P: 66 TX: 148 QRS: 269 QRSD: 92 T: 37 QT: 351 QTc: 455 Interpretive Statements Sinus tachycardia Left anterior fascicular block Anterolateral infarct, old Baseline wander in lead(s) V2 Electronically Signed On 05-22-2025 18:45:00 PDT by Diogo Wilkins Please click the below link to view image of tracing.
--- NOTE | 2025-05-20 21:19 | DVHHPRES ---
History of Present Illness Resident Creating Document: ZACHARY SILVERMAN RESIDENT History of Present Illness This is a 60-year-old male with past medical history of ulcerative colitis, CHF, glaucoma, legal blindness, STEMI, pulmonary embolism, stroke, presented to the ER with chief complain of abdominal pain. Patient complains of abdominal pain since 2 days, pain is located in the left lower quadrant and is described as sharp, stabbing, 8/10, nonradiating, no aggravating or relieving features, associated with nausea, diarrhea. He had 6 episodes of diarrhea in the last 2 days, described as loose, watery, no blood seen. He was reportedly admitted for a flare-up of ulcerative colitis, post discharge he never received his steroid medication, worsening his symptoms all over again. He denies any fever, chills, vomiting. Previous hospitalization: Admitted this month for ulcerative colitis flare up PMHx: Ulcerative colitis, CHF, glaucoma, legal blindness, STEMI, pulmonary embolism, stroke PSHx: Cholecystectomy, tonsillectomy Social history: Denies smoking, alcohol use. Reports marijuana use (last used today). Lives in house alone. He reports sign DNR DNI, no papers presented at this time. Next to kin is sister. Home medication: Atorvastatin, baclofen, brimonidine, bumetanide, carisoprodol, chlorpromazine, dicyclomine dorzolamide, empagliflozin, folic acid, gabapentin, homeopathic product, [place], magnesium oxide, mesalamine, metoprolol succinate, pantoprazole rivaroxaban, Entresto, spironolactone, tramadol Allergic history: No known allergies Patient was examined at bedside today. Vitals show tachycardia. Labs show normocytic normochromic anemia. Patient is admitted for further evaluation and management. Review of Systems Review of Systems ROS: Constitutional: Denies weight loss, fever and chills. HEENT: Denies changes in vision and hearing. Respiratory: Denies shortness of breath and cough Cardiovascular: Denies chest discomfort or palpitations GI: Abdominal pain, nausea, diarrhea. : Denies dysuria and urinary frequency. Musculoskeletal: Denies myalgias and joint pain Skin: Denies rash and pruritus. Neurological: Denies dizziness, headache, vision or hearing problems Allergies: Coded Allergies: No Known Drug Allergy (Verified Allergy, Unknown, 11/26/24) Exam Vital Signs Vital Signs Date Time Temp Pulse Resp B/P (MAP) Pulse Ox O2 Delivery O2 Flow Rate FiO2 05/20/25 20:53 97.7 76 16 126/74 (91) 98 97.7 05/20/25 17:11 Room Air* 0 21 Exam General: Patient alert and oriented in person, place and time. Patient following commands. HEENT: Normocephalic, atraumatic, moist mucous membranes Respiratory/pulmonary: Clear lungs bilaterally, vesicular murmurs present in almost all lung rogers, no associated crackles or wheezes. Cardiovascular: Normal heart sounds S1 and S2 with no associated murmurs Abdomen: Tenderness in lower abdomen on light palpation. Extremities: Grade 1 bilateral pitting edema Peripheral Pulses: 3+ Radial (R). 3+ Radial (L). 3+ Dorsalis pedis (R). 3+ Dorsalis pedis(L) Skin: No rashes or pruritus, there is no sacral edema present at this time. Neurological: Intact cranial nerves with no focal neurologic deficits Labs/Xrays Labs Test 05/20/25 16:10 05/20/25 15:21 Range/Units Urine Color Light-yellow Yellow Urine Clarity Clear Clear Urine pH 5.0 5.0-9.0 Urine Specific [place] 1.008 1.001-1.035 Urine Protein Negative Negative Urine Ketones Negative Negative Urine Blood Negative Negative /uL Urine Nitrite Negative Negative Urine Bilirubin Negative Negative Urine Urobilinogen Normal Negative mg/dL Urine Leukocyte Esterase Negative Negative /uL Urine RBC <1 0 - 3 /hpf Urine Microscopic WBC < 1 0-3 /HPF Urine Squamous Epithelial Cells None seen <5 /hpf Urine Bacteria None seen None Seen /hpf Urine Glucose 3+ H Normal mg/dL White Blood Count 9.2 4.4-10.8 10^3/uL Red Blood Count 4.03 L 4.5-5.90 10^6/uL Hemoglobin 12.3 L 13.5-17.5 g/dL Hematocrit 37.3 L 41.0-53.0 % Mean Corpuscular Volume 92.5 80.0-100.0 fL Mean Corpuscular Hemoglobin 30.6 28.0-32.0 pg Mean Corpuscular Hemoglobin Concent 33.1 32.0-36.0 g/dL Red Cell Distribution Width 15.7 H 11.8-14.3 % Platelet Count 240 140-450 10^3/uL Mean Platelet Volume 7.8 6.9-10.8 fL Neutrophils (%) (Auto) 58.9 37.0-80.0 % Lymphocytes (%) (Auto) 28.1 10.0-50.0 % Monocytes (%) (Auto) 11.8 0.0-12.0 % Eosinophils (%) (Auto) 0.5 0.0-7.0 % Basophils (%) (Auto) 0.7 0.0-2.0 % Neutrophils # (Auto) 5.4 1.6-8.6 10 ^3/uL Lymphocytes # (Auto) 2.6 0.4-5.4 10 ^3/uL Monocytes # (Auto) 1.1 0-1.3 10 ^3/uL Eosinophils # (Auto) 0 0-0.8 10 ^3/uL Basophils # (Auto) 0.1 0-0.2 10 ^3/uL Nucleated Red Blood Cells 0.2 % Sodium Level 141 136-145 mmol/L Potassium Level 3.7 3.5-5.1 mmol/L Chloride Level 105 98-107 mmol/L Carbon Dioxide Level 23 20-31 mmol/L Anion Gap 13 5-15 Blood Urea Nitrogen 22 9-23 mg/dL Creatinine 1.75 H 0.700-1.30 mg/dL Glomerular Filtration Rate Calc 44 >90 mL/min BUN/Creatinine Ratio 12.6 10.0-20.0 Serum Glucose 116 H 74-106 mg/dL Calcium Level 8.9 8.7-10.4 mg/dL Total Bilirubin 0.4 0.2-1.0 mg/dL Aspartate Amino Transferase (AST) 38 13-40 U/L Alanine Aminotransferase (ALT) 57 H 7-40 U/L Alkaline Phosphatase 109 46-116 U/L Troponin I High Sensitivity 11 </=54 ng/L B-Type Natriuretic Peptide 11.05 0-100 pg/mL Total Protein 7.2 5.7-8.2 g/dL Albumin 4.2 3.2-4.8 g/dL SEPSIS Sepsis Screen Date sepsis recognized/suspect: May 20, 2025 Time Sepsis recognized/suspect: 1519 Recent Procedure: No On Antibiotic Therapy: No Respiratory Rate >20: No Heart Rate >90: No Temp<36 C (96.8 F) or >38.3 C: No SBP <90 or MAP <65 mmHG: No New Acute Mental Status Change: No Is the patient on CPAP, BIPAP,: No Physician Orders Chest Portable (05/20/25 15:11) Sodium Chloride 0.9% (05/20/25 15:15) Ct Ab Pel Wo Con-No Oral Or Iv (05/20/25 15:11) Vital Signs Date Time Temp Pulse Resp B/P (MAP) Pulse Ox O2 Delivery O2 Flow Rate FiO2 05/20/25 20:53 97.7 76 16 126/74 (91) 98 97.7 05/20/25 17:11 105 18 93 Room Air* 0 21 05/20/25 16:24 95 16 99 Room Air 05/20/25 16:24 98.2 95 16 103/64 (77) 99 98.2 05/20/25 15:25 101 05/20/25 15:24 97.3 106 18 150/85 93 97.3 05/20/25 15:10 101 Laboratory Tests Test 05/20/25 15:21 White Blood Count 9.2 10^3/uL (4.4-10.8) Medications Medications Dose Ordered Sig/Peyton Route Start Time Stop Time Status Last Admin Dose Admin Ceftriaxone Sodium 50 ml @ 100 mls/hr ONCE ONCE IV 05/20/25 16:45 05/20/25 17:14 DC 05/20/25 17:25 100 MLS/HR Ketorolac Tromethamine 30 mg ONCE ONCE IV 05/20/25 17:30 05/20/25 17:31 DC 05/20/25 17:34 30 MG Metronidazole 100 ml @ 100 mls/hr ONCE ONCE IV 05/20/25 16:45 05/20/25 17:44 DC 05/20/25 17:49 100 MLS/HR Pantoprazole Sodium 40 mg ONCE ONCE IV 05/20/25 16:45 05/20/25 16:46 DC 05/20/25 17:25 40 MG Assessment/Plan Assessment/Plan Ulcerative colitis flare-up CT shows thickening of distal esophagus and stomach. Mesalamine 800 mg b.i.d. p.o., Stool WBC, culture, SOB, C diff ordered Clear liquid diet and IV fluids Holding of corticosteroids until C diff ruled out Monitor CBC, CRP, ESR daily. Avoid opioids and anticholinergics to avoid risk of toxic megacolon Diverticulosis without diverticulitis CT shows diverticulosis without diverticulitis Hepatic steatosis CT shows hepatomegaly Bilateral inguinal hernia, umbilical hernia CT abdomen shows small fat containing bilateral inguinal hernias, small fat containing umbilical hernia. ERVIN on CKD hemodynamically mediated (VMN) GFR-44 Avoid nephrotoxins like NSAIDS, contrast Low salt diet, maintain hydration Repeat BMP Chronic constipation Congestive heart failure Takes bumetanide 2 mg daily; hold until ERVIN resolves Continue Jardiance, metoprolol succinate, Entresto, spironolactone Echocardiogram ordered Hyperlipidemia Atorvastatin 40 mg daily Atrial fibrillation Rivaroxaban 20 mg daily DIET: Clear liquid diet DVT PROPHYLAXIS: Lovenox GI PROPHYLAXIS: Protonix CODE STATUS: Goals of care discussed with patient at bedside for more than 35 minutes. Full code DISPOSITION: Med/surge Patient's status and plan discussed with the patient. Case discussed with Dr. Acevedo. Plan discussed with: Patient, Other (Nurses) Date of Service: May 20, 2025 Billing Provider: BJ ACEVEDO MD Common Visit Codes: 82765-[id number] INP/OBS CARE (HIGH) Secondary Visit Codes: 26723-[id number] CARE PLAN 30 MINUTES ZACHARY SILVERMAN RESIDENT May 20, 2025 21:19 CARY FLORES RESIDENT May 21, 2025 06:02
[2025-05-20 21:53] LABS: Triglycerides 140.0 mg/dL (< 150)
[2025-05-20 21:54] LABS: Magnesium 2.2 mg/dL (1.6-2.6)
[2025-05-20 21:55] LABS: HDL Cholesterol 59.0 mg/dL (40-59)
[2025-05-20 21:56] LABS: Cholesterol 157.0 mg/dL (< 200)
[2025-05-20 22:16] LABS: Lipase 52.0 U/L (12-53)
[2025-05-20 22:41] LABS: INR 1.07 (0.9-1.15); Partial Thromboplastin Time 27.3 SEC (24.5-34.5); Prothrombin Time 11.3 sec (9.3-11.8)
[2025-05-21] VITALS (7 sets, daily range): BP systolic 106–120; BP diastolic 53–75; PULSE 53–69; RESP 14–20; TEMP 97.5–98; O2SAT 94–95
[2025-05-21] MEDS: HYDROcodone-ACET 5/325MG TAB PO PRN (00:07)
[2025-05-21] MEDS: ENOXAPARIN SOD 100 MG/1 ML SYRINGE SC ONE (00:30)
[2025-05-21] MEDS: METOCLOPRAMIDE HCL 10 MG TAB PO ONE (00:30)
[2025-05-21] MEDS: MESALAMINE 400mg Delayed Release Cap PO ONE (00:30)
[2025-05-21] MEDS: SODIUM CHLORIDE 0.9% 1,000 ML IV ONE (00:30)
[2025-05-21 05:26] LABS: Albumin 4.4 g/dL (3.2-4.8); Alkaline Phosphatase 106 U/L (46-116); Anion Gap 13 (5-15); BUN/Creatinine Ratio 9.6 (10.0-20.0); Blood Urea Nitrogen 17 mg/dL (9-23); Calcium 8.9 mg/dL (8.7-10.4); Carbon Dioxide 24 mmol/L (20-31); Chloride 100 mmol/L (98-107); Glucose 102 mg/dL (74-106); Potassium 3.6 mmol/L (3.5-5.1); Sodium 137 mmol/L (136-145); Total Protein 7.8 g/dL (5.7-8.2)
[2025-05-21 05:27] LABS: Bilirubin, Total 0.6 mg/dL (0.2-1.0)
[2025-05-21 05:32] LABS: Alanine Aminotransferase 53 U/L (7-40)
[2025-05-21 05:40] LABS: Hematocrit 40.3 % (41.0-53.0); Hemoglobin 13.5 g/dL (13.5-17.5); Mean Corpuscular Hemoglobin 31.0 pg (28.0-32.0); Mean Corpuscular Volume 92.6 fL (80.0-100.0); Nucleated Red Blood Cells % 0.1 %
[2025-05-21] MEDS ORDERED: FUROSEMIDE 40 MG/4 ML VIAL IV SCH (06:00)
[2025-05-21] MEDS: SODIUM CHLORIDE 0.9% 1,000 ML IV SCH (08:17)
[2025-05-21] MEDS: MESALAMINE 400mg Delayed Release Cap PO SCH (09:55)
[2025-05-21] MEDS: SACUBITRIL-VALSARTAN 24mg/26mg TAB PO SCH (10:10)
[2025-05-21] MEDS: SPIRONOLACTONE 25 MG TAB PO SCH (10:11)
[2025-05-21] MEDS: EMPAGLIFLOZIN 10 MG TAB PO SCH (10:11)
[2025-05-21] MEDS: METOPROLOL SUCCINATE XL 50 MG TAB PO SCH (10:15)
[2025-05-21] MEDS: PANTOPRAZOLE 40 MG/10 ML VIAL INJ IV SCH (10:16)
[2025-05-21] MEDS: ENOXAPARIN SOD 100 MG/1 ML SYRINGE SC SCH (10:18)
[2025-05-21 13:58] LABS: COVID19 ANTIGEN SOFIA FIA NEGATIVE (NEGATIVE)
--- NOTE | 2025-05-21 15:28 | DVHPNRES ---
Progress Note Date Seen: May 21, 2025 Resident Creating Document: CHRIST HARE RESIDENT Has the PT tested + for MRSA If YES, has PT been informed?: No Medical Necessity Reason Pt with a Central, PICC or Fol: No Subjective Review of Systems 60-year-old male with past medical history of ulcerative colitis for the past 19 years, CHF HFrEF 35-40%, glaucoma, legal blindness, STEMI, pulmonary embolism, stroke, presented to the ER with chief complain of abdominal pain. Patient complains of abdominal pain since 2 days, pain is located in the left lower quadrant and is described as sharp, stabbing, 8/10, nonradiating, no aggravating or relieving features, associated with nausea, diarrhea. He had 6 episodes of diarrhea in the last 2 days, described as loose, watery, no blood seen. He was reportedly admitted for a flare-up of ulcerative colitis, post discharge he never received his steroid medication, worsening his symptoms all over again. He denies any fever, chills, vomiting. Previous hospitalization: Admitted this month for ulcerative colitis flare up PMHx: Ulcerative colitis, CHF, glaucoma, legal blindness, STEMI, pulmonary embolism, stroke PSHx: Cholecystectomy, tonsillectomy Social history: Denies smoking, alcohol use. Reports marijuana use (last used today). Lives in house alone. He reports DNR DNI, no papers presented at this time. Next to kin is sister. Home medication: Atorvastatin, baclofen, brimonidine, bumetanide, carisoprodol, chlorpromazine, dicyclomine dorzolamide, empagliflozin, folic acid, gabapentin, homeopathic product, [place], magnesium oxide, mesalamine, metoprolol succinate, pantoprazole rivaroxaban, Entresto, spironolactone, tramadol Allergic history: No known allergies ROS: 05/21/2025: Patient was seen and examined by me today. Patient still complains of abdominal pain 6/10 in intensity. We gave him Bentyl 30mg and 0.25mg Dilaudid. He stated he was hungry and we increase the clear liquid diet to full liquid diet. Patient has given his friend's phone number for emergency contact [phone]. Bumex 2 g has been continued from today. GI consult, pending Objective vital signs Vital Sign Date Time Temp Pulse Resp B/P (MAP) Pulse Ox O2 Delivery O2 Flow Rate FiO2 05/21/25 10:15 79 126/75 05/21/25 09:00 97.9 14 94 97.9 05/20/25 17:11 Room Air* 0 21 Total Intake and Output 05/20/25 05/20/25 05/21/25 15:00 23:00 07:00 Intake Total 50 ml Balance 50 ml medications Current Medications Medications Dose Ordered Sig/Peyton Route Start Time Stop Time Status Last Admin Dose Admin Acetaminophen/ Hydrocodone Bitart 1 tab Q4HP PRN PO 05/20/25 23:30 05/21/25 05:47 1 TAB Ondansetron HCl 4 mg Q4HP PRN IV 05/20/25 23:30 Mesalamine 800 mg TID PO 05/21/25 06:00 Sodium Chloride 1,000 ml @ 125 mls/hr Q8H IV 05/21/25 00:30 05/21/25 10:00 125 MLS/HR Acetaminophen/ Hydrocodone Bitart 1 tab Q6HPRN PRN PO 05/21/25 00:30 Pantoprazole Sodium 40 mg DAILY IV 05/21/25 10:00 05/21/25 10:16 40 MG Atorvastatin Calcium 40 mg HS PO 05/21/25 22:00 Metoprolol Succinate 200 mg DAILY PO 05/21/25 10:00 05/21/25 10:15 200 MG Spironolactone 25 mg DAILY PO 05/21/25 10:00 05/21/25 10:11 25 MG Empaglifozin 10 mg DAILY PO 05/21/25 10:00 05/21/25 10:11 10 MG Sacubitril/ Valsartan 1 tab BID PO 05/21/25 10:00 05/21/25 10:10 1 TAB Ceftriaxone Sodium 50 ml @ 100 mls/hr DAILY@09 IV 05/21/25 09:00 05/21/25 10:07 100 MLS/HR Metronidazole 100 ml @ 100 mls/hr Q8HR IV 05/21/25 06:00 Dicyclomine HCl 30 mg QID PO 05/21/25 18:00 Bumetanide 2 mg DAILY PO 05/22/25 10:00 Enoxaparin Sodium 130 mg Q12HR SC 05/21/25 22:00 Examination General: Patient alert and oriented in person, place and time. Patient following commands. HEENT: Normocephalic, atraumatic, moist mucous membranes, patient can see what is in front of him but has peripheral vision blindness Respiratory/pulmonary: Clear lungs bilaterally, vesicular murmurs present in almost all lung rogers, no associated crackles or wheezes. Cardiovascular: Normal heart sounds S1 and S2 with no associated murmurs Abdomen: Tenderness in lower abdomen on light palpation, present more in the left lower quadrant Extremities: Grade 1 bilateral pitting edema Peripheral Pulses: 3+ Radial (R). 3+ Radial (L). 3+ Dorsalis pedis (R). 3+ Dorsalis pedis(L) Skin: No rashes or pruritus, there is no sacral edema present at this time. Neurological: Intact cranial nerves with no focal neurologic deficits laboratory and microbiology Laboratory Tests 05/21/25 04:48 Test 05/21/25 04:48 Range/Units Serum Glucose 102 74-106 mg/dL Labs and/or images reviewed: Labs reviewed by me, Image(s) reviewed by me Problem List/Assessment/Plan Problem List/Assessment/Plan #Ulcerative colitis flare-up -CT shows thickening of distal esophagus and stomach. -Mesalamine 800 mg b.i.d. p.o., -Stool WBC, culture, SOB, C diff ordered -Clear liquid diet switched to full liquid diet today -IV fluids Nacl 125cc/hr -Holding of corticosteroids until C diff ruled out -Monitor CBC, CRP, ESR daily. Avoid opioids and anticholinergics to avoid risk of toxic megacolon -gastroenterology consult placed, pending -Bentyl 30mg scheduled -Dilaudid 0.25mg once #Diverticulosis without diverticulitis -CT shows diverticulosis without diverticulitis #Hepatic steatosis -CT shows hepatomegaly #Bilateral inguinal hernia, umbilical hernia -CT abdomen shows small fat containing bilateral inguinal hernias, small fat containing umbilical hernia. #ERVIN on CKD hemodynamically mediated (VMN) -GFR-44, creatinine 1.78 -Avoid nephrotoxins like NSAIDS, contrast -Low salt diet, maintain hydration #Chronic constipation #Congestive heart failure -Bumex 2mg once daily scheduled -Continue Jardiance, metoprolol succinate, Entresto, spironolactone -Echocardiogram ordered, pending #Hyperlipidemia -Atorvastatin 40 mg daily #Atrial fibrillation -Rivaroxaban 20 mg daily #Marijuana use disorder Counseled for 16 minutes for marijuana use cessation GI prophylaxis: Protonix 40 mg daily IV DVT prophylaxis: Lovenox subcutaneous 1 mg/ kg -130 mg Diet: full liquid diet Goals of care discussed with the patient for 20 minutes: DNR/DNI Case discussed with Dr. Leong, patient and nurse. Plan discussed with: Patient, Other (rn) My Orders My Orders Orders - CHRIST HARE Procedure Category Date Status Time Code Status CODE 05/21/25 Transmitted 09:33 Date of Service: May 21, 2025 Billing Provider: JAGRUTI LEONG MD Common Visit Codes: [id number] INP/OBS CARE(HIGH) Secondary Visit Codes: [id number] CHNG SMOKING >10MIN (16 minutes for marijuana use cessation), 95064-[id number] CARE PLAN 30 MINUTES (20 minutes) Addendum Addendum Addendum I was physically present for the travis portions of the service provided to patient by THE RESIDENT. I have reviewed the documentation, discussed the case with resident and agree with the resident's documentation except as noted. Also the patient's clinical case was discussed with the patient's nurse. This medical document was created using an electronic medical record system with computerized dictation system. Although this document has been carefully reviewed, there might still be some phonetic and typographical errors. These areas are purely typographical due to imperfections of the software programs, and do not reflect any compromise in the patient's medical care. Late signature. CHRIST HARE May 21, 2025 15:28 JAGRUTI LEONG MD May 24, 2025 11:25
[2025-05-21] MEDS: HYDROmorphone HCL 2 MG/ML VL/or syr IV ONE (15:46)
[2025-05-21] MEDS: DICYCLOMINE HCL 10 MG CAP PO SCH (19:14)
--- NOTE | 2025-05-21 20:01 | DVHINCON2 ---
Date of service: May 21, [address] Rodriguez Reason for Consultation Abdominal pain diarrhea history of colitis History of Present Illness This 60-year-old male with a history of colitis for 19 years or so has admitted with complaints of abdominal pain nausea and diarrhea is better he used to have four or five diarrhea in the last few days but much better now Patient has history of ulcerative colitis maintained on Delzicol mesalamine Had a recent flare-up and he was in [facility] where the give IV Solu-Medrol and then was given some prednisone pills as an outpatient but did not get called into the pharmacy as per the patient because he had some diarrhea he came to this hospital ER and got admitted Denies any GI bleeding Patient had a colonoscopy done in March 2025 which apparently did not show any gross colitis CT scan in the hospital without oral contrast showed no gross colitis possibly diverticulosis but CT was done without oral contrast Denies any melena no hematemesis no weight loss or systemic symptoms of IBD Past Medical History Colitis history of congestive heart failure glaucoma pulmonary embolism on Eliquis history of stroke STEMI Past Surgical History Cholecystectomy tonsillectomy Family History: Cardiovascular disease G8 MOTHER, Onset:40's - 50 G8 FATHER, Onset:50's - 60 FH: kidney cancer G8 BROTHER, Onset:40s - 50 FH: lupus G8 SISTER, Onset:40s - 50 Family History Noncontributory Social History Denies smoking or drinking Allergies: Coded Allergies: No Known Drug Allergy (Verified Allergy, Unknown, 11/26/24) Home Meds Active Scripts Senna (Senna) 8.6 Mg Tab, 8.6 MG PO QPM, #30 TAB Prov:MAGDALENO FRANCO MD 02/12/25 Carisoprodol (Soma) 250 Mg Tab, 250 MG PO Q8HPRN PRN, #30 TAB Prov:VIDAL HERNANDEZ MD 11/26/24 Reported Medications Dicyclomine Hcl (BENTYL CAPSULE) 10 Mg Cp, 1 CAP PO, #90 CAP 11 Refills 01/15/25 Baclofen (Baclofen) 20 Mg Tab, 1 TAB PO, #90 TAB 2 Refills 01/15/25 Gabapentin (Gabapentin) 300 Mg Cap, 300 MG PO for 30 Days, MG 01/15/25 Magnesium Oxide (MAGNESIUM OXIDE) 400 Mg Tab, 1 TAB PO, #30 TAB 5 Refills 01/15/25 Tramadol HCl (Tramadol HCl) 50 Mg Tab, 50 MG PO, TAB 01/15/25 Empagliflozin (Jardiance) 10 Mg Tab, 10 MG PO, TAB 01/15/25 Atorvastatin Calcium (ATORVASTATIN CALCIUM) 40 Mg Tab, 1 TAB PO, #30 TAB 5 Refills 01/15/25 Spironolactone (Spironolactone) 25 Mg Tab, 1 TAB PO, #90 TAB 1 Refill 01/15/25 Sacubitril-Valsartan (Entresto 97-103 mg) 1 Tab Tab, 1 TAB PO, TAB 01/15/25 Dorzolamide-Timolol (Dorzolamide Hcl/Timolol M) 1 Ml Brigitte, 1 DROP EACHEYE, #10 ML 6 Refills 01/15/25 Brimonidine Tartrate (Brimonidine Tartrate) 0.15 % Brigitte, 1 DROP OP TID, DROP 01/15/25 Folic Acid (Folic Acid) 1 Mg Tab, 1 MG PO for 30 Days, MG 01/15/25 Homeopathic Products (Theraworx Relief) 1 Liq Liq, 1 LIQ EX, LIQ 01/15/25 Chlorpromazine HCl (Chlorpromazine Hydrochlor) 25 Mg Tab, 25 MG PO, TAB 01/15/25 Rivaroxaban (XARELTO) 20 Mg Tab, 20 MG PO, TAB 01/15/25 Pantoprazole Sodium Sesquihydr (Protonix) 40 Mg Tab, 40 MG PO, #30 TAB 01/15/25 Mesalamine (DELZICOL) 400 Mg Cap, 400 MG OR, CAP 01/15/25 Hydrocodone-Acetaminophen (Hydrocodone Bitartrate/AC 5-325 mg) 1 Tab Tab, 1 TAB PO, TAB 01/15/25 Metoprolol Succinate (Metoprolol Succinate Er) 50 Mg Tab, 200 MG PO for 30 Days, MG 01/15/25 Bumetanide (Bumex) 2 Mg Tab, 2 MG PO DAILY 01/15/25 Current Medications Current Medications Medications (Trade) Dose Ordered Sig/Peyton Route PRN Reason Start Time Stop Time Status Last Admin Acetaminophen/ Hydrocodone Bitart ([place] 5/325MG Tab) 1 tab Q4HP PRN PO MODERATE PAIN (4-6 PAIN SCALE) 10/16/25 23:30 05/21/25 05:47 Ondansetron HCl (Zofran) 4 mg Q4HP PRN IV NAUSEA / VOMITING 05/20/25 23:30 Mesalamine (DELZICOL Delayed Release Capsule) 800 mg TID PO 05/21/25 06:00 05/21/25 15:44 Sodium Chloride 1,000 ml @ 125 mls/hr Q8H IV 05/21/25 00:30 05/21/25 10:00 Acetaminophen/ Hydrocodone Bitart ([place] 5/325MG Tab) 1 tab Q6HPRN PRN PO SEVERE PAIN (7-10 PAIN SCALE) 05/21/25 00:30 Enoxaparin Sodium (Lovenox) 130 mg Q12HR SC 05/21/25 10:00 05/21/25 14:28 DC 05/21/25 10:18 Pantoprazole Sodium (Protonix) 40 mg DAILY IV 05/21/25 10:00 05/21/25 10:16 Atorvastatin Calcium (Lipitor) 40 mg HS PO 05/21/25 22:00 Metoprolol Succinate (Toprol Xl) 200 mg DAILY PO 05/21/25 10:00 05/21/25 10:15 Furosemide (Lasix Injection) 40 mg BIDD IV 05/21/25 06:00 05/21/25 06:01 DC Spironolactone (Aldactone) 25 mg DAILY PO 05/21/25 10:00 05/21/25 10:11 Empaglifozin (Jardiance) 10 mg DAILY PO 05/21/25 10:00 05/21/25 10:11 Sacubitril/ Valsartan (Entresto 24-26 Mg tab) 1 tab BID PO 05/21/25 10:00 05/21/25 10:10 Ceftriaxone Sodium 50 ml @ 100 mls/hr DAILY@09 IV 05/21/25 09:00 05/21/25 10:07 Metronidazole 100 ml @ 100 mls/hr Q8HR IV 05/21/25 06:00 05/21/25 15:44 Dicyclomine HCl (Bentyl Capsule) 30 mg QID PO 05/21/25 18:00 05/21/25 19:14 Bumetanide (Bumex Tablet) 2 mg DAILY PO 05/22/25 10:00 Enoxaparin Sodium (Lovenox) 130 mg Q12HR SC 05/21/25 22:00 Review of Systems Noncontributory Vital Signs Vital Signs Date Time Temp Pulse Resp B/P (MAP) Pulse Ox O2 Delivery O2 Flow Rate FiO2 05/21/25 17:00 97.7 53 20 119/68 (85) 94 97.7 05/20/25 17:11 Room Air* 0 21 Physical Exam Slightly on the obese side male in no acute distress HEENT examination no pallor no icterus Lungs are clear Cardiovascular unremarkable Abdomen obese no real tenderness except minimally in the left lower quadrant no rigidity no guarding no masses bowel sounds normal Extremities no edema Neuro grossly intact Labs/Diagnostic Data Labs Test 05/21/25 12:46 05/21/25 09:56 05/21/25 04:48 05/20/25 21:37 Range/Units SARS-CoV-2 Antigen (Rapid) Negative NEGATIVE Stool Occult Blood Negative Negative Stool Occult Blood Sample #3 Negative Stool for White Cells None seen White Blood Count 6.7 # 4.4-10.8 10^3/uL Red Blood Count 4.35 L 4.5-5.90 10^6/uL Hemoglobin 13.5 13.5-17.5 g/dL Hematocrit 40.3 L 41.0-53.0 % Mean Corpuscular Volume 92.6 80.0-100.0 fL Mean Corpuscular Hemoglobin 31.0 28.0-32.0 pg Mean Corpuscular Hemoglobin Concent 33.4 32.0-36.0 g/dL Red Cell Distribution Width 15.7 H 11.8-14.3 % Platelet Count 243 140-450 10^3/uL Mean Platelet Volume 7.8 6.9-10.8 fL Neutrophils (%) (Auto) 43.1 37.0-80.0 % Lymphocytes (%) (Auto) 41.8 10.0-50.0 % Monocytes (%) (Auto) 12.7 H 0.0-12.0 % Eosinophils (%) (Auto) 1.7 0.0-7.0 % Basophils (%) (Auto) 0.7 0.0-2.0 % Neutrophils # (Auto) 2.9 1.6-8.6 10 ^3/uL Lymphocytes # (Auto) 2.8 0.4-5.4 10 ^3/uL Monocytes # (Auto) 0.9 0-1.3 10 ^3/uL Eosinophils # (Auto) 0.1 0-0.8 10 ^3/uL Basophils # (Auto) 0 0-0.2 10 ^3/uL Nucleated Red Blood Cells 0.1 % Erythrocyte Sedimentation Rate 16 0-20 mm/hr Sodium Level 137 136-145 mmol/L Potassium Level 3.6 3.5-5.1 mmol/L Chloride Level 100 98-107 mmol/L Carbon Dioxide Level 24 20-31 mmol/L Anion Gap 13 5-15 Blood Urea Nitrogen 17 9-23 mg/dL Creatinine 1.78 H 0.700-1.30 mg/dL Glomerular Filtration Rate Calc 43 >90 mL/min BUN/Creatinine Ratio 9.6 L 10.0-20.0 Serum Glucose 102 74-106 mg/dL Calcium Level 8.9 8.7-10.4 mg/dL Total Bilirubin 0.6 0.2-1.0 mg/dL Aspartate Amino Transferase (AST) 37 13-40 U/L Alanine Aminotransferase (ALT) 53 H 7-40 U/L Alkaline Phosphatase 106 46-116 U/L Total Protein 7.8 5.7-8.2 g/dL Albumin 4.4 3.2-4.8 g/dL Prothrombin Time 11.3 9.3-11.8 sec Prothrombin Time INR 1.07 0.9-1.15 Activated Partial Thromboplast Time 27.3 24.5-34.5 SEC Test 05/20/25 16:10 05/20/25 15:21 Range/Units Urine Color Light-yellow Yellow Urine Clarity Clear Clear Urine pH 5.0 5.0-9.0 Urine Specific [place] 1.008 1.001-1.035 Urine Protein Negative Negative Urine Ketones Negative Negative Urine Blood Negative Negative /uL Urine Nitrite Negative Negative Urine Bilirubin Negative Negative Urine Urobilinogen Normal Negative mg/dL Urine Leukocyte Esterase Negative Negative /uL Urine RBC <1 0 - 3 /hpf Urine Microscopic WBC < 1 0-3 /HPF Urine Squamous Epithelial Cells None seen <5 /hpf Urine Bacteria None seen None Seen /hpf Urine Glucose 3+ H Normal mg/dL Hemoglobin A1c 5.5 <5.7 % A1C Phosphorus Level 2.7 2.4-5.1 mg/dL Magnesium Level 2.2 1.6-2.6 mg/dL Troponin I High Sensitivity 11 </=54 ng/L C-Reactive Protein High Sensitivity 0.26 <1.0 mg/dL B-Type Natriuretic Peptide 11.05 0-100 pg/mL Triglycerides Level 140 < 150 mg/dL Cholesterol Level 157 < 200 mg/dL LDL Cholesterol 87 < 100 mg/dL HDL Cholesterol 59 40-59 mg/dL Lipase 52 12-53 U/L Vitamin B12 Level 567 211-911 pg/mL Vitamin D 25-Hydroxy 25.6 L 30.0-100 ng/mL Thyroid Stimulating Hormone (TSH) 0.89 0.55-4.78 uIU/mL Assessment 60-year-old obese male with a history of colitis with pulmonary embolism on Eliquis history of stroke STEMI legal blindness was in recently in the hospital ER where steroids IV was given and prescribed oral p.o. prednisone for colitis exacerbation but did not get the oral pills and patient has some diarrhea and hence came to the emergency room here and got admitted. Patient is maintained on oral mesalamine as an outpatient and well-controlled for the last 19 years Last colonoscopy about three months ago in March 2025 did not reveal any active colitis CT scan here showed diverticulosis but without contrast no luminal details seen Clinical impression Possible ulcerative colitis with mild exacerbation Colitis well maintained on Delzicol Plan/Recommendation Patient had no relatively normal colonoscopy about three months ago maybe twice and because of the treatment with mesalamine We will recommend a CT scan of abdomen and pelvis with oral contrast If symptoms continues we will recommend steroid in tapering doses orally We will also get CBC and calprotectin and stool studies for O&P C&S and C diff Patient is on blood thinners properly Xarelto and and hence not a candidate for colonoscopy at this time We will continue with mesalamine and if symptoms were assist recommend steroids in tapering doses and follow closely as necessary with an elective colonoscopy as a few months off Xarelto We will also check the calprotectin level and hemoglobin closely Thank you Dr. Eva Mathews discussed with: Patient VIANEY MANNING MD May 21, 2025 20:01
[2025-05-21] MEDS: ATORVASTATIN 20 MG TAB PO SCH (22:56)
[2025-05-21] MEDS: ENOXAPARIN SOD 150 MG/1 ML SYRINGE SC SCH (22:59)
[2025-05-22] VITALS (7 sets, daily range): BP systolic 108–121; BP diastolic 57–79; PULSE 52–91; RESP 16–18; TEMP 97.8–98.8; O2SAT 93–98
[2025-05-22 06:51] LABS: Hematocrit 34.9 % (41.0-53.0); Hemoglobin 11.8 g/dL (13.5-17.5); Mean Corpuscular Hemoglobin 31.2 pg (28.0-32.0); Mean Corpuscular Volume 91.9 fL (80.0-100.0); Nucleated Red Blood Cells % 0.1 %
[2025-05-22 06:57] LABS: Chloride 106 mmol/L (98-107); Potassium 3.8 mmol/L (3.5-5.1); Sodium 139 mmol/L (136-145)
[2025-05-22 06:58] LABS: Anion Gap 9 (5-15); Carbon Dioxide 24 mmol/L (20-31)
[2025-05-22 07:03] LABS: BUN/Creatinine Ratio 10.8 (10.0-20.0); Blood Urea Nitrogen 16 mg/dL (9-23); Glucose 75 mg/dL (74-106)
[2025-05-22 07:26] LABS: Calcium 8.2 mg/dL (8.7-10.4)
[2025-05-22] MEDS: OMNIPAQUE 12mg/ml 500ml ORAL SOLUTION PO ONE (08:58)
--- NOTE | 2025-05-22 11:30 | DVHPNRES ---
Progress Note Date Seen: May 22, 2025 Resident Creating Document: CRHIST HARE RESIDENT Has the PT tested + for MRSA If YES, has PT been informed?: No Medical Necessity Reason Pt with a Central, PICC or Fol: No Subjective Review of Systems 60-year-old male with past medical history of ulcerative colitis for the past 19 years, CHF HFrEF 35-40%, glaucoma, legal blindness, STEMI, pulmonary embolism, stroke, presented to the ER with chief complain of abdominal pain. Patient complains of abdominal pain since 2 days, pain is located in the left lower quadrant and is described as sharp, stabbing, 8/10, nonradiating, no aggravating or relieving features, associated with nausea, diarrhea. He had 6 episodes of diarrhea in the last 2 days, described as loose, watery, no blood seen. He was reportedly admitted for a flare-up of ulcerative colitis, post discharge he never received his steroid medication, worsening his symptoms all over again. He denies any fever, chills, vomiting. Previous hospitalization: Admitted this month for ulcerative colitis flare up PMHx: Ulcerative colitis, CHF, glaucoma, legal blindness, STEMI, pulmonary embolism, stroke PSHx: Cholecystectomy, tonsillectomy Social history: Denies smoking, alcohol use. Reports marijuana use (last used today). Lives in house alone. He reports sign DNR DNI, no papers presented at this time. Next to kin is sister. Home medication: Atorvastatin, baclofen, brimonidine, bumetanide, carisoprodol, chlorpromazine, dicyclomine dorzolamide, empagliflozin, folic acid, gabapentin, homeopathic product, [place], magnesium oxide, mesalamine, metoprolol succinate, pantoprazole rivaroxaban, Entresto, spironolactone, tramadol Allergic history: No known allergies ROS: 05/21/2025: Patient was seen and examined by me today. Patient still complains of abdominal pain being. We gave him Bentyl 30 and 0 point 2 5 Dilaudid. Patient stated he was hungry and we increase the clear liquid diet to full liquid diet today. Patient has given his friend's phone number for emergency contact [phone]. Bumex 2 g has been continued from today. GI consult, pending 05/22/2025: Patient was seen and examined by me today. Patient complains of cramping abdominal pain which is constant and rates it as 6/10 in intensity. Patient reports that he had 1 episode of watery stool with no blood or mucus. We are still waiting on the C diff results and stool Gram stain and culture. Gastroenterology consult yesterday suggested a CT scan of the abdomen and pelvis with oral contrast which showed no acute abnormality within the abdomen pelvis, hepatic steatosis, colonic diverticulosis without evidence of diverticulitis. Patient will be continuing mesalamine and steroid in tapering dose orally if symptoms persist. They have suggested that the patient get a elective colonoscopy a few months of Xarelto as patient is taking it now. They have said they will continue to monitor hemoglobin and calprotectin levels closely. We will continue with the ongoing management for now. Objective vital signs Vital Sign Date Time Temp Pulse Resp B/P (MAP) Pulse Ox O2 Delivery O2 Flow Rate FiO2 05/22/25 09:15 98.8 56 18 119/77 (91) 93 98.8 05/21/25 20:14 Room Air* 0 21 Total Intake and Output 05/21/25 05/21/25 05/22/25 15:00 23:00 07:00 Intake Total 350 ml Balance 350 ml medications Current Medications Medications Dose Ordered Sig/Peyton Route Start Time Stop Time Status Last Admin Dose Admin Acetaminophen/ Hydrocodone Bitart 1 tab Q4HP PRN PO 05/20/25 23:30 05/22/25 05:43 1 TAB Ondansetron HCl 4 mg Q4HP PRN IV 05/20/25 23:30 Mesalamine 800 mg TID PO 05/21/25 06:00 05/22/25 05:36 800 MG Sodium Chloride 1,000 ml @ 125 mls/hr Q8H IV 05/21/25 00:30 05/21/25 10:00 125 MLS/HR Acetaminophen/ Hydrocodone Bitart 1 tab Q6HPRN PRN PO 05/21/25 00:30 Pantoprazole Sodium 40 mg DAILY IV 05/21/25 10:00 05/22/25 09:27 40 MG Atorvastatin Calcium 40 mg HS PO 05/21/25 22:00 05/21/25 22:56 40 MG Metoprolol Succinate 200 mg DAILY PO 05/21/25 10:00 05/21/25 10:15 200 MG Spironolactone 25 mg DAILY PO 05/21/25 10:00 05/21/25 10:11 25 MG Empaglifozin 10 mg DAILY PO 05/21/25 10:00 05/21/25 10:11 10 MG Sacubitril/ Valsartan 1 tab BID PO 05/21/25 10:00 05/21/25 22:57 1 TAB Ceftriaxone Sodium 50 ml @ 100 mls/hr DAILY@09 IV 05/21/25 09:00 05/22/25 09:26 100 MLS/HR Metronidazole 100 ml @ 100 mls/hr Q8HR IV 05/21/25 06:00 05/22/25 05:36 100 MLS/HR Dicyclomine HCl 30 mg QID PO 05/21/25 18:00 05/22/25 05:52 30 MG Bumetanide 2 mg DAILY PO 05/22/25 10:00 Enoxaparin Sodium 130 mg Q12HR SC 05/21/25 22:00 05/22/25 09:27 130 MG Examination General: Patient alert and oriented in person, place and time. Patient following commands. HEENT: Normocephalic, atraumatic, moist mucous membranes, patient can see what is in front of him but has peripheral vision blindness Respiratory/pulmonary: Clear lungs bilaterally, vesicular murmurs present in almost all lung rogers, no associated crackles or wheezes. Cardiovascular: Normal heart sounds S1 and S2 with no associated murmurs Abdomen: Tenderness in lower abdomen on light palpation, present more in the left lower quadrant on mild palpation as well Extremities: Grade 1 bilateral pitting edema Peripheral Pulses: 3+ Radial (R). 3+ Radial (L). 3+ Dorsalis pedis (R). 3+ Dorsalis pedis(L) Skin: No rashes or pruritus, there is no sacral edema present at this time. Neurological: Intact cranial nerves with no focal neurologic deficits laboratory and microbiology Laboratory Tests 05/22/25 04:40 Test 05/22/25 04:40 Range/Units Serum Glucose 75 74-106 mg/dL Microbiology Date/Time Source Procedure Growth Status 05/21/25 09:56 Stool Stool Culture - Preliminary Resulted 05/21/25 09:56 Stool Shiga Toxin I & II Pending Resulted 05/21/25 09:56 Stool Clostridium difficile Toxin Assay Pending Resulted Labs and/or images reviewed: Labs reviewed by me, Image(s) reviewed by me Problem List/Assessment/Plan Problem List/Assessment/Plan #Ulcerative colitis flare-up -CT shows thickening of distal esophagus and stomach. -Mesalamine 800 mg b.i.d. p.o., -Stool WBC, culture, SOB, C diff ordered -IV fluids Nacl 125cc/hr -Holding of corticosteroids until C diff ruled out -Monitor CBC, CRP, ESR daily. Avoid opioids and anticholinergics to avoid risk of toxic megacolon -Bentyl 30mg scheduled -Dilaudid 0.25mg once today -gastroenterology consult suggested: We will recommend a CT scan of abdomen and pelvis with oral contrast; If symptoms continues we will recommend steroid in tapering doses orally; We will also get CBC and calprotectin and stool studies for O&P C&S and C diff; Patient is on blood thinners properly Xarelto and and hence not a candidate for colonoscopy at this time;We will continue with mesalamine and if symptoms were assist recommend steroids in tapering doses and follow closely as necessary with an elective colonoscopy as a few months off Xarelto; We will also check the calprotectin level and hemoglobin closely -CT abdomen and pelvis with oral contrast showed: no acute abnormality within the abdomen pelvis, hepatic steatosis, colonic diverticulosis without evidence of diverticulitis. -clear liquid diet #Diverticulosis without diverticulitis -CT shows diverticulosis without diverticulitis #Hepatic steatosis -CT shows hepatomegaly #Bilateral inguinal hernia, umbilical hernia -CT abdomen shows small fat containing bilateral inguinal hernias, small fat containing umbilical hernia. #ERVIN on CKD hemodynamically mediated (VMN) -GFR-44, creatinine 1.78 -Avoid nephrotoxins like NSAIDS, contrast -Low salt diet, maintain hydration #Chronic constipation #Congestive heart failure -Bumex 2 mg p.o. daily scheduled -Continue Jardiance, metoprolol succinate, Entresto, spironolactone -Echocardiogram ordered, pending #Hyperlipidemia -Atorvastatin 40 mg daily #Atrial fibrillation -Rivaroxaban 20 mg daily #Marijuana use disorder -counseled on cessation GI prophylaxis: Protonix 40 mg daily IV DVT prophylaxis: Lovenox subcutaneous 1 mg/ kg -130 mg Diet: Clear liquid diet Goals of care: Full code status Case discussed with Dr. Leong, patient and nurse. Plan discussed with: Patient, Other (rn) Dietary Evaluation Review Recommendations by RD: Dietary education by RD Comments: 1) Advance to cardiac diet when medically feasible 2) Refer to outpatient RD for weight management 3) Follow-up with gastroenterology, cardiology, and nephrology 4) Continue to monitor I&O, labs, and skin integrity Expected Outcomes/Goals: 1) patient to receive nutritional support within 7 days of NPO status 2) labs and GI symptoms to improve 3) diet to advance 4) gradual wt loss 5) f/u in 3-5 days Date of Service: May 22, 2025 Billing Provider: JAGRUTI LEONG MD Common Visit Codes: [id number] INP/OBS CARE(HIGH) Addendum Addendum Addendum I was physically present for the travis portions of the service provided to patient by THE RESIDENT. I have reviewed the documentation, discussed the case with resident and agree with the resident's documentation except as noted. Also the patient's clinical case was discussed with the patient's nurse. This medical document was created using an electronic medical record system with computerized dictation system. Although this document has been carefully reviewed, there might still be some phonetic and typographical errors. These areas are purely typographical due to imperfections of the software programs, and do not reflect any compromise in the patient's medical care. Late signature. CHRIST HARE May 22, 2025 11:29 JAGRUTI LEONG MD May 24, 2025 11:29
[2025-05-22] MEDS: IOHEXOL 300 MG/ML 100ML BOTTLE IJ ONE (11:45)
--- NOTE | 2025-05-22 12:31 | DVH ---
EXAM DESCRIPTION: CT CT ABD PELVIS W CON-ORAL IV CLINICAL HISTORY: ABDOMINAL PAIN; NAUSEA AND DIARRHEA COMPARISON: CT 05/20/25 TECHNIQUE: CT abdomen and pelvis with IV contrast was performed. Coronal and sagittal MPR images were generated. 27.15 CTDI, DLP = 27.15 / 1464.85 Dose reduction technique with one or more of the following methods was performed: Automated exposure control, adjustment of the mA and/or kV according to patient size, use of iterative reconstruction [place] FINDINGS: Lower chest: Clear lung bases. Liver: Diffusely decreased in attenuation. . Biliary: Status post cholecystectomy. No biliary ductal dilatation. Pancreas: No fat stranding or focal lesion. Spleen: Normal in size.. No specific data provided Adrenal glands: No nodularity. Kidneys: Symmetric enhancement. No hydroureteronephrosis. . Bladder: Underdistended, limiting evaluation. Reproductive organs: Normal. Bowel: No bowel wall thickening or dilatation. Colonic diverticulosis without evidence of diverticuli tis. Normal appendix. Peritoneum: No free fluid. No free air. Vessels: Normal caliber abdominal aorta. Lymph nodes: No suspicious lymph nodes. Soft tissues: Unremarkable. . Osseous structures: No acute fracture or subluxation. No suspicious osseous lesions. IMPRESSION: 1. No acute abnormality within the abdomen or pelvis. 2. Hepatic steatosis. 3. Colonic diverticulosis without evidence of diverticulitis.
[2025-05-22] MEDS: BUMETANIDE 1 MG TAB PO SCH (12:42)
[2025-05-22] MEDS: HYDROMORPHONE HCL 1 MG/ML INJ IV ONE (12:45)
--- NOTE | 2025-05-22 16:24 | DVHPN2 ---
Progress Note - Dictate Date Seen: May 22, 2025 Has the PT tested + for MRSA If YES, has PT been informed?: No Medical Necessity Reason Pt with a Central, PICC or Fol: No Subjective Patient had some mild diarrhea no bleeding nausea vomiting wants to have cigarettes vital signs Vital Sign Date Time Temp Pulse Resp B/P (MAP) Pulse Ox O2 Delivery O2 Flow Rate FiO2 05/22/25 13:53 98.7 52 18 121/79 (93) 97 98.7 05/22/25 08:00 Room Air* 0 21 Total Intake and Output 05/21/25 05/21/25 05/22/25 15:00 23:00 07:00 Intake Total 350 ml Balance 350 ml medications Current Medications Medications Dose Ordered Sig/Peyton Route Start Time Stop Time Status Last Admin Dose Admin Acetaminophen/ Hydrocodone Bitart 1 tab Q4HP PRN PO 05/20/25 23:30 05/22/25 05:43 1 TAB Ondansetron HCl 4 mg Q4HP PRN IV 05/20/25 23:30 Mesalamine 800 mg TID PO 05/21/25 06:00 05/22/25 14:14 800 MG Sodium Chloride 1,000 ml @ 125 mls/hr Q8H IV 05/21/25 00:30 05/21/25 10:00 125 MLS/HR Acetaminophen/ Hydrocodone Bitart 1 tab Q6HPRN PRN PO 05/21/25 00:30 Pantoprazole Sodium 40 mg DAILY IV 05/21/25 10:00 05/22/25 09:27 40 MG Atorvastatin Calcium 40 mg HS PO 05/21/25 22:00 05/21/25 22:56 40 MG Metoprolol Succinate 200 mg DAILY PO 05/21/25 10:00 05/21/25 10:15 200 MG Spironolactone 25 mg DAILY PO 05/21/25 10:00 05/22/25 12:43 25 MG Empaglifozin 10 mg DAILY PO 05/21/25 10:00 05/22/25 12:43 10 MG Sacubitril/ Valsartan 1 tab BID PO 05/21/25 10:00 05/22/25 12:42 1 TAB Ceftriaxone Sodium 50 ml @ 100 mls/hr DAILY@09 IV 05/21/25 09:00 05/22/25 09:26 100 MLS/HR Metronidazole 100 ml @ 100 mls/hr Q8HR IV 05/21/25 06:00 05/22/25 14:14 100 MLS/HR Dicyclomine HCl 30 mg QID PO 05/21/25 18:00 05/22/25 14:14 30 MG Bumetanide 2 mg DAILY PO 05/22/25 10:00 05/22/25 12:42 2 MG Enoxaparin Sodium 130 mg Q12HR SC 05/21/25 22:00 05/22/25 09:27 130 MG objective Abdomen is obese nonspecific tenderness no rigidity no guarding no masses laboratory and microbiology Laboratory Tests 05/22/25 04:40 Test 05/22/25 04:40 Range/Units Serum Glucose 75 74-106 mg/dL Assessment/Plan 60-year-old obese male with a history of colitis with pulmonary embolism on Eliquis history of stroke STEMI legal blindness was in recently in the hospital ER where steroids IV was given and prescribed oral p.o. prednisone for colitis exacerbation but did not get the oral pills and patient has some diarrhea and hence came to the emergency room here and got admitted. Patient is maintained on oral mesalamine as an outpatient and well-controlled for the last 19 years Last colonoscopy about three months ago in March 2025 did not reveal any active colitis CT scan with contrast oral contrast shows just diverticulosis Patient is on blood thinners because of DVT and not a candidate for endoscopy at this time We will recommend to continue Delzicol If diarrhea persist trial of steroids for a few weeks is okay We will recommend a elective colonoscopy as an outpatient after stoppingthe blood thinners Low residue diet and encouraged to stop smoking Dietary Evaluation Review Recommendations by RD: Dietary education by RD Comments: 1) Advance to cardiac diet when medically feasible 2) Refer to outpatient RD for weight management 3) Follow-up with gastroenterology, cardiology, and nephrology 4) Continue to monitor I&O, labs, and skin integrity Expected Outcomes/Goals: 1) patient to receive nutritional support within 7 days of NPO status 2) labs and GI symptoms to improve 3) diet to advance 4) gradual wt loss 5) f/u in 3-5 days Plan discussed with: Patient VIANEY MANNING MD May 22, 2025 16:23
--- NOTE | 2025-05-22 17:17 | DVHSR ---
APPROVED REPORT EXAM: Two-dimensional and M-mode echocardiogram with Doppler and color Doppler. Blood Pressure: 119/77 mmHg INDICATION CHF RISK FACTORS Obesity: Height: 6', Weight: 279 DIMENSIONS LVDd4.9 (3.8-5.7cm)LA (2D)4.0 (1.9-4.0cm)Aortic Root3.6 (2.0-3.7cm) LVDs3.3 (2.5-4.0cm)LA (MM) (1.9-4.0cm)Aortic Cusp Exc2.0 (1.5-2.0cm) EF (%) 57.0 (55-70%)Rt. Atrium3.4 (1.9-4.0cm)Asc. Aorta cm IVSd1.1 (0.7-1.1cm)RV (D) (1.8-2.4cm) PWd1.1 (0.7-1.1cm) Mitral Valve MitralMitral Stenosis E wave0.80m/sMV Mean GR.mmHg A wave1.10m/sMV Peak GR.mmHg E/A ratio0.72D MVAcm2 Aortic Valve Aortic ValveAortic Stenosis V10.90m/John Mean GR.4mmHg V21.30m/John Peak GR.8mmHg LVOT Diameter2.5 (1.8-2.4cm)Doppler AVA3.40cm2 AI P 1/2 [id number] Pulmonic Valve V20.50m/s Other Information Quality : Technically LimitedRhythm : Technically limited study due to body habitus. Conclusion Technically good study. Sinus rhythm. Normal chamber sizes. Valves are normal Left ventricular function is preserved. EF of 50% with normal RV function. Trace aortic insufficiency No pericardial effusion masses or vegetations.
[2025-05-23 01:00] VITALS: BP 120/60; PULSE 54; RESP 18; TEMP 98.8; O2SAT 95
[2025-05-23 05:07] VITALS: BP 147/84; PULSE 58; RESP 18; TEMP 98.8; O2SAT 96
[2025-05-23 05:41] LABS: Hematocrit 35.7 % (41.0-53.0); Hemoglobin 11.9 g/dL (13.5-17.5); Mean Corpuscular Hemoglobin 30.9 pg (28.0-32.0); Mean Corpuscular Volume 92.4 fL (80.0-100.0); Nucleated Red Blood Cells % 0.1 %
[2025-05-23 05:53] LABS: Anion Gap 9 (5-15); Carbon Dioxide 24 mmol/L (20-31); Chloride 105 mmol/L (98-107); Sodium 138 mmol/L (136-145)
[2025-05-23 05:58] LABS: Calcium 8.5 mg/dL (8.7-10.4); Potassium 3.5 mmol/L (3.5-5.1)
[2025-05-23 05:59] LABS: BUN/Creatinine Ratio 9.0 (10.0-20.0); Blood Urea Nitrogen 12 mg/dL (9-23); Glucose 74 mg/dL (74-106)
[2025-05-23] MEDS: HYDROcodone-ACET 5/325MG TAB PO PRN (09:26)
[2025-05-23 09:35] VITALS: BP 131/77; PULSE 57; RESP 18; TEMP 98.3; O2SAT 97
[2025-05-23] MEDS: HYDROmorphone HCL 2 MG/ML VL/or syr IV ONE (10:52)
--- NOTE | 2025-05-23 11:36 | DVHPNRES ---
Progress Note Date Seen: May 23, 2025 Resident Creating Document: SHERIF JIMENEZ RESIDENT Has the PT tested + for MRSA If YES, has PT been informed?: No Medical Necessity Reason Pt with a Central, PICC or Fol: No Subjective Review of Systems 60-year-old male with past medical history of ulcerative colitis for the past 19 years, CHF HFrEF 35-40%, glaucoma, legal blindness, STEMI, pulmonary embolism, stroke, presented to the ER with chief complain of abdominal pain. Patient complains of abdominal pain since 2 days, pain is located in the left lower quadrant and is described as sharp, stabbing, 8/10, nonradiating, no aggravating or relieving features, associated with nausea, diarrhea. He had 6 episodes of diarrhea in the last 2 days, described as loose, watery, no blood seen. He was reportedly admitted for a flare-up of ulcerative colitis, post discharge he never received his steroid medication, worsening his symptoms all over again. He denies any fever, chills, vomiting. Previous hospitalization: Admitted this month for ulcerative colitis flare up PMHx: Ulcerative colitis, CHF, glaucoma, legal blindness, STEMI, pulmonary embolism, stroke PSHx: Cholecystectomy, tonsillectomy Social history: Denies smoking, alcohol use. Reports marijuana use (last used today). Lives in house alone. He reports sign DNR DNI, no papers presented at this time. Next to kin is sister. Home medication: Atorvastatin, baclofen, brimonidine, bumetanide, carisoprodol, chlorpromazine, dicyclomine dorzolamide, empagliflozin, folic acid, gabapentin, homeopathic product, [place], magnesium oxide, mesalamine, metoprolol succinate, pantoprazole rivaroxaban, Entresto, spironolactone, tramadol Allergic history: No known allergies ROS: 05/21/2025: Patient was seen and examined by me today. Patient still complains of abdominal pain being. We gave him Bentyl 30 and 0 point 2 5 Dilaudid. Patient stated he was hungry and we increase the clear liquid diet to full liquid diet today. Patient has given his friend's phone number for emergency contact [phone]. Bumex 2 g has been continued from today. GI consult, pending 05/22/2025: Patient was seen and examined by me today. Patient complains of cramping abdominal pain which is constant and rates it as 6/10 in intensity. Patient reports that he had 1 episode of watery stool with no blood or mucus. We are still waiting on the C diff results and stool Gram stain and culture. Gastroenterology consult yesterday suggested a CT scan of the abdomen and pelvis with oral contrast which showed no acute abnormality within the abdomen pelvis, hepatic steatosis, colonic diverticulosis without evidence of diverticulitis. Patient will be continuing mesalamine and steroid in tapering dose orally if symptoms persist. They have suggested that the patient get a elective colonoscopy a few months of Xarelto as patient is taking it now. They have said they will continue to monitor hemoglobin and calprotectin levels closely. We will continue with the ongoing management for now. 05/23/2025-patient was seen today at bedside, less than chart reviewed. negative for C diff. Fecal occult blood test negative. Stool for WBC negative. Patient reported ongoing diarrhea watery 4 times this morning so far. Switched IV antibiotic ceftriaxone metronidazole to oral Keflex and metronidazole. Started prednisolone 20 mg p.o. b.i.d.. Reviewed gastroenterology consult, possible outpatient colonoscopy. No inpatient colonoscopy. Gastroenterology recommended for fecal cardioprotection Objective vital signs Vital Sign Date Time Temp Pulse Resp B/P (MAP) Pulse Ox O2 Delivery O2 Flow Rate FiO2 05/23/25 10:52 62 18 138/84 05/23/25 09:35 98.3 97 98.3 05/23/25 08:00 Room Air* 0 21 Total Intake and Output 05/22/25 05/22/25 05/23/25 15:00 23:00 07:00 Intake Total 50 ml 1000 ml 700 ml Output Total 1800 ml 400 ml Balance 50 ml -800 ml 300 ml medications Current Medications Medications Dose Ordered Sig/Peyton Route Start Time Stop Time Status Last Admin Dose Admin Ondansetron HCl 4 mg Q4HP PRN IV 05/20/25 23:30 Mesalamine 800 mg TID PO 05/21/25 06:00 05/23/25 04:55 800 MG Acetaminophen/ Hydrocodone Bitart 1 tab Q6HPRN PRN PO 05/21/25 00:30 05/23/25 09:26 1 TAB Pantoprazole Sodium 40 mg DAILY IV 05/21/25 10:00 05/23/25 09:26 40 MG Atorvastatin Calcium 40 mg HS PO 05/21/25 22:00 05/22/25 22:21 40 MG Metoprolol Succinate 200 mg DAILY PO 05/21/25 10:00 05/23/25 09:28 200 MG Spironolactone 25 mg DAILY PO 05/21/25 10:00 05/23/25 09:27 25 MG Empaglifozin 10 mg DAILY PO 05/21/25 10:00 05/23/25 09:28 10 MG Sacubitril/ Valsartan 1 tab BID PO 05/21/25 10:00 05/23/25 09:28 1 TAB Ceftriaxone Sodium 50 ml @ 100 mls/hr DAILY@09 IV 05/21/25 09:00 05/23/25 09:25 100 MLS/HR Metronidazole 100 ml @ 100 mls/hr Q8HR IV 05/21/25 06:00 05/23/25 04:56 100 MLS/HR Dicyclomine HCl 30 mg QID PO 05/21/25 18:00 05/23/25 04:56 30 MG Enoxaparin Sodium 130 mg Q12HR SC 05/21/25 22:00 05/23/25 09:27 130 MG Bumetanide 1 mg DAILY PO 05/24/25 10:00 Examination General: Patient alert and oriented in person, place and time. Patient following commands. HEENT: Normocephalic, atraumatic, moist mucous membranes, patient can see what is in front of him but has peripheral vision blindness Respiratory/pulmonary: Clear lungs bilaterally, vesicular murmurs present in almost all lung rogers, no associated crackles or wheezes. Cardiovascular: Normal heart sounds S1 and S2 with no associated murmurs Abdomen: Tenderness in lower abdomen on light palpation, present more in the left lower quadrant on mild palpation as well Extremities: Grade 1 bilateral pitting edema Peripheral Pulses: 3+ Radial (R). 3+ Radial (L). 3+ Dorsalis pedis (R). 3+ Dorsalis pedis(L) Skin: No rashes or pruritus, there is no sacral edema present at this time. Neurological: Intact cranial nerves with no focal neurologic deficits laboratory and microbiology Laboratory Tests 05/23/25 04:33 Test 05/23/25 04:33 Range/Units Serum Glucose 74 74-106 mg/dL Microbiology Date/Time Source Procedure Growth Status 05/21/25 09:56 Stool Stool Culture - Preliminary Resulted 05/21/25 09:56 Stool Shiga Toxin I & II Pending Resulted 05/21/25 09:56 Stool Clostridium difficile Toxin Assay - Final Resulted Labs and/or images reviewed: Labs reviewed by me, Image(s) reviewed by me Problem List/Assessment/Plan Problem List/Assessment/Plan Problem List/Assessment/Plan-patient still had diarrhea going on today morning, nonbloody. Later on improved. Started on prednisolone 20 mg p.o. b.i.d., gastroenterology recommended for fecal calprotectin but could not find the oxygen for order. We will continue other current management. DC IV fluid.Switched IV antibiotic ceftriaxone metronidazole to oral Keflex and metronidazole #Ulcerative colitis flare-up .-CT abdomen and pelvis- Mild wall thickening of the distal esophagus with mild wall thickening of the stomach. Colonic diverticulosis without diverticulitis. Mild hepatomegaly with hepatic steatosis. -Mesalamine 800 mg b.i.d. p.o., -Stool WBC negative, -Pending stool culture, -stool negative for C diff -Monitor CBC, CRP, ESR daily. Avoid opioids and anticholinergics to avoid risk of toxic megacolon -Bentyl 30mg scheduled -Dilaudid 0.25mg once today -gastroenterology consult suggested: Oral prednisolone was started after talking to Gastroenterology, recommended for fecal calprotectin. -CT abdomen and pelvis with oral contrast showed: no acute abnormality within the abdomen pelvis, hepatic steatosis, colonic diverticulosis without evidence of diverticulitis. -clear liquid diet #Diverticulosis without diverticulitis -CT shows diverticulosis without diverticulitis #Hepatic steatosis -CT shows hepatomegaly #Bilateral inguinal hernia, umbilical hernia -CT abdomen shows small fat containing bilateral inguinal hernias, small fat containing umbilical hernia. #ERVIN on CKD hemodynamically mediated (VMN) -Avoid nephrotoxins like NSAIDS, contrast -Low salt diet, maintain hydration #Chronic constipation #Congestive heart failure -Bumex 2 mg p.o. daily scheduled -Continue Jardiance, metoprolol succinate, Entresto, spironolactone -Echocardiogram LVEF 50%. #Hyperlipidemia -Atorvastatin 40 mg daily #Atrial fibrillation -continue Lovenox as prescribed #Marijuana use disorder Counseled on cessation GI prophylaxis: Protonix DVT prophylaxis: Lovenox Goals of care: Full code status Case discussed with Dr. Leong, patient and nurse. Plan discussed with: Patient, Other (RN) Dietary Evaluation Review Recommendations by RD: Dietary education by RD Comments: 1) Advance to cardiac diet when medically feasible 2) Refer to outpatient RD for weight management 3) Follow-up with gastroenterology, cardiology, and nephrology 4) Continue to monitor I&O, labs, and skin integrity Expected Outcomes/Goals: 1) patient to receive nutritional support within 7 days of NPO status 2) labs and GI symptoms to improve 3) diet to advance 4) gradual wt loss 5) f/u in 3-5 days Addendum Addendum Addendum I was physically present for the travis portions of the service provided to patient by THE RESIDENT. I have reviewed the documentation, discussed the case with resident and agree with the resident's documentation except as noted. Also the patient's clinical case was discussed with the patient's nurse. This medical document was created using an electronic medical record system with computerized dictation system. Although this document has been carefully reviewed, there might still be some phonetic and typographical errors. These areas are purely typographical due to imperfections of the software programs, and do not reflect any compromise in the patient's medical care. Late signature. Date of Service: May 23, 2025 Billing Provider: JAGRUTI LEONG MD Common Visit Codes: [id number] INP/OBS CARE(HIGH) SHERIF JIMENEZ RESIDENT May 23, 2025 11:36 JAGRUTI LEONG MD May 24, 2025 11:31
[2025-05-23] MEDS: predniSONE 20 MG TAB PO SCH (12:10)
[2025-05-23 13:59] VITALS: BP 122/75; PULSE 55; RESP 18; TEMP 98.5; O2SAT 96
[2025-05-23] MEDS: metroNIDAZOLE 500 MG TAB PO SCH (15:01)
[2025-05-23 17:06] VITALS: BP 137/82; PULSE 55; RESP 18; TEMP 98.4; O2SAT 97
[2025-05-23 20:51] VITALS: BP 125/71; PULSE 50; RESP 21; TEMP 98.9; O2SAT 97
[2025-05-23] MEDS: CEPHALEXIN 250 MG CAP PO SCH (21:14)
[2025-05-23] MEDS: ONDANSETRON HCL 4 MG/2 ML VIAL IV PRN (21:19)
[2025-05-24 00:32] VITALS: BP 111/64; PULSE 51; RESP 19; TEMP 98.9; O2SAT 97
[2025-05-24 04:39] VITALS: BP 123/82; PULSE 50; RESP 19; TEMP 98.2; O2SAT 97
[2025-05-24] MEDS: PANTOPRAZOLE 40 MG TAB PO SCH (05:16)
[2025-05-24 07:06] LABS: Hematocrit 36.6 % (41.0-53.0); Hemoglobin 12.4 g/dL (13.5-17.5); Mean Corpuscular Hemoglobin 31.2 pg (28.0-32.0); Mean Corpuscular Volume 92.2 fL (80.0-100.0); Nucleated Red Blood Cells % 0.1 %
[2025-05-24 07:15] LABS: Albumin 4.1 g/dL (3.2-4.8); Alkaline Phosphatase 98 U/L (46-116); Anion Gap 12 (5-15); BUN/Creatinine Ratio 7.7 (10.0-20.0); Blood Urea Nitrogen 11 mg/dL (9-23); Calcium 8.9 mg/dL (8.7-10.4); Carbon Dioxide 21 mmol/L (20-31); Chloride 101 mmol/L (98-107); Glucose 97 mg/dL (74-106); Magnesium 2.2 mg/dL (1.6-2.6); Potassium 4.0 mmol/L (3.5-5.1); Total Protein 7.3 g/dL (5.7-8.2)
[2025-05-24 07:16] LABS: Bilirubin, Total 0.6 mg/dL (0.2-1.0)
[2025-05-24 07:19] LABS: Alanine Aminotransferase 72 U/L (7-40); Sodium 134 mmol/L (136-145)
[2025-05-24] MEDS ORDERED: METOPROLOL SUCCINATE XL 50 MG TAB PO SCH ×2 (07:30→08:50)
[2025-05-24 08:33] VITALS: BP 135/67; PULSE 54; RESP 20; TEMP 98.4; O2SAT 98
[2025-05-24] MEDS: BUMETANIDE 1 MG TAB PO SCH (08:51)
[2025-05-24] MEDS: METOPROLOL SUCCINATE XL 50 MG TAB PO SCH (08:52)
[2025-05-24 12:16] VITALS: BP 125/80; PULSE 59; RESP 20; TEMP 98.4; O2SAT 95
--- NOTE | 2025-05-24 15:32 | DVHPNRES ---
Progress Note Date Seen: May 24, 2025 Resident Creating Document: JOLIE CHOWDHURY RESIDENT Has the PT tested + for MRSA If YES, has PT been informed?: No Medical Necessity Reason Pt with a Central, PICC or Fol: No Subjective Review of Systems Aj Interiano is a 60-year-old male with past medical history of ulcerative colitis for the past 19 years, CHF HFrEF 35-40%, glaucoma, legal blindness, pulmonary embolism, stroke, who presented to the ER with chief complaint of abdominal pain. Patient complained of abdominal pain since 2 days, pain is located in the left lower quadrant, described as sharp, stabbing, 8/10, nonradiating, no aggravating or relieving features, associated with nausea, diarrhea. He had 6 episodes of diarrhea in the last 2 days, described as loose, watery, no blood seen. He was reportedly admitted for a flare-up of ulcerative colitis, post discharge he never received his steroid medication, worsening his symptoms all over again. He denies any fever, chills, vomiting. Previous hospitalization: Admitted this month for ulcerative colitis flare up PMHx: Ulcerative colitis, CHF, glaucoma, legal blindness, pulmonary embolism, stroke PSHx: Cholecystectomy, tonsillectomy Social history: Denies smoking, alcohol use. Reports marijuana use (last used today). Lives in house alone. modified code status-no intubation, Next of kin is sister. Home medication: Atorvastatin, baclofen, brimonidine, bumetanide, carisoprodol, chlorpromazine, dicyclomine dorzolamide, empagliflozin, folic acid, gabapentin, homeopathic product, [place], magnesium oxide, mesalamine, metoprolol succinate, pantoprazole rivaroxaban, Entresto, spironolactone, tramadol Allergic history: No known allergies Patient seen and examined at bedside. Patient is alert and oriented to time, place person and responding to all questions. Eyes: No Pain, No Vision change, No Conjunctivae inflammation, No Eyelid inflammation,No Redness ENT: No Ear pain, No Ear discharge, No Nose pain, No Nose discharge, No Nose congestion, No Mouth pain, No Mouth swelling, No Throat pain, No Throat swelling Cardiovascular: No Chest Pain, No Palpitations, No Orthopnea, No Paroxysmal No Dyspnea, No Edema, No Lt Headedness Respiratory: No Cough, No Dry, No Shortness of breath, No SOB with exertion, No Wheezing, No Hemoptysis, No Pleuritic Pain, No Sputum Gastrointestinal: No Nausea, No Vomiting, Abdominal Pain, Diarrhea, No Constipation, No Melena, No Hematochezia Genitourinary: No Dysuria, No Frequency, No Incontinence, No Hematuria, No Retention ROS: 05/21/2025: Patient was seen and examined at bedside today. Patient still complains of abdominal pain. We gave him Bentyl 30 and 0.25 Dilaudid. Patient stated he was hungry and we increase the clear liquid diet to full liquid diet today. Patient has given his friend's phone number for emergency contact [phone]. Bumex 2 g has been continued from today. GI consult, pending 05/22/2025: Patient was seen and examined by me today. Patient complains of cramping abdominal pain which is constant and rates it as 6/10 in intensity. Patient reports that he had 1 episode of watery stool with no blood or mucus. We are still waiting on the C diff results and stool Gram stain and culture. Gastroenterology consult yesterday suggested a CT scan of the abdomen and pelvis with oral contrast which showed no acute abnormality within the abdomen pelvis, hepatic steatosis, colonic diverticulosis without evidence of diverticulitis. Patient will be continuing mesalamine and steroid in tapering dose orally if symptoms persist. They have suggested that the patient get a elective colonoscopy a few months of Xarelto as patient is taking it now. They have said they will continue to monitor hemoglobin and calprotectin levels closely. We will continue with the ongoing management for now. 05/23/2025-patient was seen today at bedside, less than chart reviewed. negative for C diff. Fecal occult blood test negative. Stool for WBC negative. Patient reported ongoing diarrhea watery 4 times this morning so far. Switched IV antibiotic ceftriaxone metronidazole to oral Keflex and metronidazole. Started prednisolone 20 mg p.o. b.i.d.. Reviewed gastroenterology consult, possible outpatient colonoscopy. No inpatient colonoscopy. Gastroenterology recommended for fecal cardioprotection 05/24/25- The patient was seen at bedside today. All labs and charts were reviewed. The patient reported having constant lower abdominal pain and 12 episodes of diarrhea since last night. We gave 1 dose of Imodium 2mg and Tylenol 650 mg. Keflex and Jardiance were discontinued. Dose of metoprolol was reduced from 200 to 50mg due to low heart rate. Isolation precautions were also discontinued. The patient will be continued on clear liquid diet and the same medical management. We will continue monitoring the patient for more episodes of diarrhea and abdominal pain. Patient will possibly be discharged tomorrow if he is doing well clinically. Patient's sister was contacted and updated on patient's clinical status. Objective vital signs Vital Sign Date Time Temp Pulse Resp B/P (MAP) Pulse Ox O2 Delivery O2 Flow Rate FiO2 05/24/25 12:16 98.4 59 20 125/80 (95) 95 98.4 05/24/25 08:00 Room Air* 0 21 Total Intake and Output 05/23/25 05/23/25 05/24/25 15:00 23:00 07:00 Intake Total 50 ml 725 ml 940 ml Output Total 1300 ml Balance 50 ml -575 ml 940 ml medications Current Medications Medications Dose Ordered Sig/Peyton Route Start Time Stop Time Status Last Admin Dose Admin Ondansetron HCl 4 mg Q4HP PRN IV 05/20/25 23:30 05/24/25 09:02 4 MG Mesalamine 800 mg TID PO 05/21/25 06:00 05/24/25 14:00 800 MG Acetaminophen/ Hydrocodone Bitart 1 tab Q6HPRN PRN PO 05/21/25 00:30 05/24/25 11:56 1 TAB Atorvastatin Calcium 40 mg HS PO 05/21/25 22:00 05/23/25 21:13 40 MG Spironolactone 25 mg DAILY PO 05/21/25 10:00 05/24/25 08:50 25 MG Sacubitril/ Valsartan 1 tab BID PO 05/21/25 10:00 05/24/25 08:50 1 TAB Dicyclomine HCl 30 mg QID PO 05/21/25 18:00 05/24/25 11:56 30 MG Enoxaparin Sodium 130 mg Q12HR SC 05/21/25 22:00 05/24/25 08:51 130 MG Bumetanide 1 mg DAILY PO 05/24/25 10:00 05/24/25 08:51 1 MG Metronidazole 500 mg Q8HR PO 05/23/25 14:00 05/24/25 14:00 500 MG Pantoprazole Sodium 40 mg DAILY@0600 PO 05/24/25 06:00 05/24/25 05:16 40 MG Prednisone 20 mg BID PO 05/23/25 11:30 05/24/25 08:50 20 MG Metoprolol Succinate 50 mg DAILY PO 05/24/25 08:52 Examination General: Patient alert and oriented in person, place and time. Patient following commands. HEENT: Normocephalic, atraumatic, moist mucous membranes, patient can see what is in front of him but has peripheral vision blindness Respiratory/pulmonary: Clear lungs bilaterally, vesicular murmurs present in almost all lung rogers, no associated crackles or wheezes. Cardiovascular: Normal heart sounds S1 and S2 with no associated murmurs Abdomen: no tenderness in abdomen on palpation Extremities: Grade 1 bilateral pitting edema Peripheral Pulses: 3+ Radial (R). 3+ Radial (L). 3+ Dorsalis pedis (R). 3+ Dorsalis pedis(L) Skin: No rashes or pruritus, there is no sacral edema present at this time. Neurological: Intact cranial nerves with no focal neurologic deficits laboratory and microbiology Laboratory Tests 05/24/25 04:58 Test 05/24/25 04:58 Range/Units Serum Glucose 97 74-106 mg/dL Microbiology Date/Time Source Procedure Growth Status 05/21/25 09:56 Stool Stool Culture - Final Complete 05/21/25 09:56 Stool Shiga Toxin I & II - Final Complete 05/21/25 09:56 Stool Clostridium difficile Toxin Assay - Final Complete Labs and/or images reviewed: Labs reviewed by me, Image(s) reviewed by me Problem List/Assessment/Plan Problem List/Assessment/Plan #Ulcerative colitis flare-up .-CT abdomen and pelvis- Mild wall thickening of the distal esophagus with mild wall thickening of the stomach. Colonic diverticulosis without diverticulitis. Mild hepatomegaly with hepatic steatosis. -Mesalamine 800 mg t.i.d. p.o., -Stool WBC negative -stool negative for C diff - Avoid opioids and anticholinergics to avoid risk of toxic megacolon -Bentyl 30mg scheduled -tylenol 650 mg for pain q4hr -gastroenterology consult suggested: Oral prednisolone 20mg bid, recommended for fecal calprotectin. -CT abdomen and pelvis with oral contrast showed: no acute abnormality within the abdomen pelvis, hepatic steatosis, colonic diverticulosis without evidence of diverticulitis. -clear liquid diet -imodium 2mg one dose given on diarrhea -discontinued keflex -isolation discontinued #Diverticulosis without diverticulitis -CT shows diverticulosis without diverticulitis #Hepatic steatosis -CT shows hepatomegaly #Bilateral inguinal hernia, umbilical hernia -CT abdomen shows small fat containing bilateral inguinal hernias, small fat containing umbilical hernia. #ERVIN on CKD hemodynamically mediated (VMN) -Avoid nephrotoxins like NSAIDS, contrast -Low salt diet, maintain hydration #Chronic constipation #Congestive heart failure,with EF 50% -Bumex 2 mg p.o. daily scheduled -metoprolol succinate dose reduced from 200mg to 50mg po daily -continue Entresto, spironolactone -Echocardiogram LVEF 50%. #Hyperlipidemia -Atorvastatin 40 mg daily #Atrial fibrillation -continue Lovenox as prescribed #Marijuana use disorder Counseled on cessation GI prophylaxis: Protonix DVT prophylaxis: Lovenox Goals of care discussed with patient for >20 minutes, patient is modified code with DNI Plan discussed with Dr Acevedo Plan discussed with: Patient, Other My Orders My Orders Orders - JOLIE CHOWDHURY Procedure Category Date Status Time Loperamide Capsule PHA 05/24/25 Logged (Imodium Capsule) 15:15 Dietary Evaluation Review Recommendations by RD: Dietary education by RD Comments: 1) Advance to cardiac diet when medically feasible 2) Refer to outpatient RD for weight management 3) Follow-up with gastroenterology, cardiology, and nephrology 4) Continue to monitor I&O, labs, and skin integrity Expected Outcomes/Goals: 1) patient to receive nutritional support within 7 days of NPO status 2) labs and GI symptoms to improve 3) diet to advance 4) gradual wt loss 5) f/u in 3-5 days Date of Service: May 24, 2025 Billing Provider: BJ ACEVEDO MD Common Visit Codes: [id number] INP/OBS CARE(HIGH) JOLIE CHOWDHURY RESIDENT May 24, 2025 15:32 BJ ACEVEDO MD May 24, 2025 18:20
[2025-05-24] MEDS: LOPERAMIDE HCL 2 MG CAP/TAB PO ONE (15:45)
[2025-05-24] MEDS: ACETAMINOPHEN 325 MG TAB PO ONE (16:00)
[2025-05-24 16:37] VITALS: BP 125/84; PULSE 52; RESP 20; TEMP 98.4; O2SAT 95
[2025-05-24] MEDS ORDERED: ACETAMINOPHEN 325 MG TAB PO PRN (20:00)
[2025-05-24 21:00] VITALS: BP 138/81; PULSE 52; RESP 18; TEMP 98.6; O2SAT 99
[2025-05-24] MEDS: HYDROmorphone HCL 2 MG/ML VL/or syr IV ONE (21:12)
[2025-05-24] MEDS: ENOXAPARIN SOD 120 MG/0.8 ML SYRINGE SC SCH (21:35)
[2025-05-25 01:00] VITALS: BP 131/77; PULSE 55; RESP 18; TEMP 98.6; O2SAT 96
[2025-05-25 05:00] VITALS: BP 120/73; PULSE 50; RESP 18; TEMP 98.6; O2SAT 95
[2025-05-25 06:48] LABS: Hematocrit 36.6 % (41.0-53.0); Hemoglobin 12.2 g/dL (13.5-17.5); Mean Corpuscular Hemoglobin 31.0 pg (28.0-32.0); Mean Corpuscular Volume 93.2 fL (80.0-100.0); Nucleated Red Blood Cells % 0.1 %
[2025-05-25 07:03] LABS: Alkaline Phosphatase 86 U/L (46-116); Anion Gap 12 (5-15); BUN/Creatinine Ratio 9.6 (10.0-20.0); Blood Urea Nitrogen 15 mg/dL (9-23); Calcium 8.8 mg/dL (8.7-10.4); Carbon Dioxide 21 mmol/L (20-31); Chloride 104 mmol/L (98-107); Potassium 3.9 mmol/L (3.5-5.1); Sodium 137 mmol/L (136-145); Total Protein 7.2 g/dL (5.7-8.2)
[2025-05-25 07:04] LABS: Albumin 4.1 g/dL (3.2-4.8); Bilirubin, Total 0.6 mg/dL (0.2-1.0)
[2025-05-25 07:17] LABS: Alanine Aminotransferase 130 U/L (7-40); Glucose 133 mg/dL (74-106)
[2025-05-25 08:02] VITALS: BP 112/60; PULSE 49; RESP 20; TEMP 98.8; O2SAT 96
[2025-05-25] MEDS ORDERED: METO25TA93 PO (08:56)
[2025-05-25] MEDS ORDERED: FURO1TAB31 PO (08:56)
[2025-05-25] MEDS ORDERED: METH4PAK PO (08:56)
[2025-05-25] MEDS ORDERED: DICY10CA PO (08:56)
[2025-05-25] MEDS: LOPERAMIDE HCL 2 MG CAP/TAB PO ONE (10:21)
[2025-05-25] MEDS ORDERED: ERGO1CAP12 PO (10:51)
[2025-05-25] MEDS ORDERED: FAMO20TA10 PO (11:13)
--- NOTE | 2025-05-25 13:58 | DVHDSRES ---
Discharge Summary Date of Admission Resident Creating Document: JOLIE CHOWDHURY RESIDENT May 20, 2025 at 23:28 Date of Discharge: May 25, 2025 Admitting Diagnosis ulcerative colitis flare-up Labs/Diagnostic Data: Laboratory Results Test 05/25/25 05:09 05/24/25 04:58 05/21/25 12:46 05/21/25 09:56 White Blood Count 8.7 10^3/uL (4.4-10.8) Red Blood Count 3.93 10^6/uL (4.5-5.90) Hemoglobin 12.2 g/dL (13.5-17.5) Hematocrit 36.6 % (41.0-53.0) Mean Corpuscular Volume 93.2 fL (80.0-100.0) Mean Corpuscular Hemoglobin 31.0 pg (28.0-32.0) Mean Corpuscular Hemoglobin Concent 33.2 g/dL (32.0-36.0) Red Cell Distribution Width 15.4 % (11.8-14.3) Platelet Count 253 10^3/uL (140-450) Mean Platelet Volume 8.1 fL (6.9-10.8) Neutrophils (%) (Auto) 69.5 % (37.0-80.0) Lymphocytes (%) (Auto) 20.6 % (10.0-50.0) Monocytes (%) (Auto) 9.7 % (0.0-12.0) Eosinophils (%) (Auto) 0.1 % (0.0-7.0) Basophils (%) (Auto) 0.1 % (0.0-2.0) Neutrophils # (Auto) 6.1 10 ^3/uL (1.6-8.6) Lymphocytes # (Auto) 1.8 10 ^3/uL (0.4-5.4) Monocytes # (Auto) 0.8 10 ^3/uL (0-1.3) Eosinophils # (Auto) 0 10 ^3/uL (0-0.8) Basophils # (Auto) 0 10 ^3/uL (0-0.2) Nucleated Red Blood Cells 0.1 % Sodium Level 137 mmol/L (136-145) Potassium Level 3.9 mmol/L (3.5-5.1) Chloride Level 104 mmol/L (98-107) Carbon Dioxide Level 21 mmol/L (20-31) Anion Gap 12 (5-15) Blood Urea Nitrogen 15 mg/dL (9-23) Creatinine 1.56 mg/dL (0.700-1.30) Glomerular Filtration Rate Calc 50 mL/min (>90) BUN/Creatinine Ratio 9.6 (10.0-20.0) Serum Glucose 133 mg/dL (74-106) Calcium Level 8.8 mg/dL (8.7-10.4) Total Bilirubin 0.6 mg/dL (0.2-1.0) Aspartate Amino Transferase (AST) 138 U/L (13-40) Alanine Aminotransferase (ALT) 130 U/L (7-40) Alkaline Phosphatase 86 U/L (46-116) Total Protein 7.2 g/dL (5.7-8.2) Albumin 4.1 g/dL (3.2-4.8) Magnesium Level 2.2 mg/dL (1.6-2.6) SARS-CoV-2 Antigen (Rapid) Negative (NEGATIVE) Stool Occult Blood Negative (Negative) Stool Occult Blood Sample #3 (Negative) Stool for White Cells None seen Test 05/21/25 04:48 05/20/25 21:37 05/20/25 16:10 05/20/25 15:21 Erythrocyte Sedimentation Rate 16 mm/hr (0-20) Prothrombin Time 11.3 sec (9.3-11.8) Prothrombin Time INR 1.07 (0.9-1.15) Activated Partial Thromboplast Time 27.3 SEC (24.5-34.5) Urine Color Light-yellow (Yellow) Urine Clarity Clear (Clear) Urine pH 5.0 (5.0-9.0) Urine Specific [place] 1.008 (1.001-1.035) Urine Protein Negative (Negative) Urine Ketones Negative (Negative) Urine Blood Negative /uL (Negative) Urine Nitrite Negative (Negative) Urine Bilirubin Negative (Negative) Urine Urobilinogen Normal mg/dL (Negative) Urine Leukocyte Esterase Negative /uL (Negative) Urine RBC <1 /hpf (0 - 3) Urine Microscopic WBC < 1 /HPF (0-3) Urine Squamous Epithelial Cells None seen /hpf (<5) Urine Bacteria None seen /hpf (None Seen) Urine Glucose 3+ mg/dL (Normal) Hemoglobin A1c 5.5 % A1C (<5.7) Phosphorus Level 2.7 mg/dL (2.4-5.1) Troponin I High Sensitivity 11 ng/L (</=54) C-Reactive Protein High Sensitivity 0.26 mg/dL (<1.0) B-Type Natriuretic Peptide 11.05 pg/mL (0-100) Triglycerides Level 140 mg/dL (< 150) Cholesterol Level 157 mg/dL (< 200) LDL Cholesterol 87 mg/dL (< 100) HDL Cholesterol 59 mg/dL (40-59) Lipase 52 U/L (12-53) Vitamin B12 Level 567 pg/mL (211-911) Vitamin D 25-Hydroxy 25.6 ng/mL (30.0-100) Thyroid Stimulating Hormone (TSH) 0.89 uIU/mL (0.55-4.78) Other Laboratory Tests 05/25/25 05:09 Brief Hx & Hospital Course: Aj Interiano is a 60-year-old male with past medical history of ulcerative colitis for the past 19 years, CHF HFrEF 35-40%, glaucoma, legal blindness, pulmonary embolism, stroke, who presented to the ER with chief complaint of abdominal pain. Patient complained of abdominal pain since 2 days, pain is located in the left lower quadrant, described as sharp, stabbing, 8/10, nonradiating, no aggravating or relieving features, associated with nausea, diarrhea. He had 6 episodes of diarrhea in the last 2 days, described as loose, watery, no blood seen. He was reportedly admitted for a flare-up of ulcerative colitis, post discharge he never received his steroid medication, worsening his symptoms all over again. He denies any fever, chills, vomiting. Brief hosital course: Patient was given Bentyl 30mg qid and 0.25 mg Dilaudid as needed for abdominal pain and was started on full liquid diet. The patient continued to complain of abdominal pain and episodes of diarrhea, C diff and stool Gram stain and culture came back negative. GI was consulted and they continued to follow the patient. CT abdomen pelvis with oral contrast showed no acute abnormality within the abdomen, colonic diverticulosis without evidence of diverticulitis. The patient was continued on mesalamine 800 mg t.i.d. and was started on oral prednisone 20 mg p.o. b.i.d.. Fecal occult blood test was negative. Patient was started on Keflex and Flagyl, Keflex was discontinued the next day. The patient was give 2 doses of Imodium 2 mg p.o.. Patient was recommended to follow up with GI outpatient for elective colonoscopy. Dose of metoprolol was reduced from 200 mg to 50 mg due to low heart rate. On assessment today, patient stated that his abdominal pain had reduced and he had only 1 episode of diarrhea in the last 1 day. All medications and recommendations were thoroughly explained to the patient and he demonstrated understanding of the same. Patient was discharged home in a stable condition and asked to follow-up with primary care physician and GI doctor in 1-2 weeks. Previous hospitalization: Admitted this month for ulcerative colitis flare up PMHx: Ulcerative colitis, CHF, glaucoma, legal blindness, pulmonary embolism, stroke PSHx: Cholecystectomy, tonsillectomy Social history: Denies smoking, alcohol use. Reports marijuana use (last used on day of admission). Lives in house alone. modified code status-no intubation, Next of kin is sister. Home medication: Atorvastatin, baclofen, brimonidine, bumetanide, carisoprodol, chlorpromazine, dicyclomine dorzolamide, empagliflozin, folic acid, gabapentin, homeopathic product, [place], magnesium oxide, mesalamine, metoprolol succinate, pantoprazole rivaroxaban, Entresto, spironolactone, tramadol Allergic history: No known allergies Operations or Procedures 1.PROCEDURE(s): ABPL - CT AB PEL WO CON-NO ORAL OR IV REASON: colitis ORDER NUMBER(s): [id number], ACCESSION NUMBER(s): [id number] Exam: CT CT AB PEL WO CON-NO ORAL OR IV History: colitis Comparison Study: CT CT AB PEL WO CON-NO ORAL OR IV on DOS: 02/10/25, CT CT AB PEL WO CON-NO ORAL OR IV on DOS: 11/26/24 TECHNIQUE: Multidetector CT of the abdomen and pelvis without IV contrast. Axial, coronal and sagittal multiplanar reformats were obtained from the axial data set by the technologist. Radiation Dose Information: CT Dose: CTDI volume is 23.7 mGy. Dose-length product is 1422.88 mGy*cm FINDINGS: The lung bases are clear. Partially visualized heart is unremarkable. Status post cholecystectomy. Mild hepatomegaly with hepatic steatosis. Otherwise, liver, spleen, pancreas and adrenal glands are unremarkable. Kidneys and ureters are unremarkable. Mild wall thickening of the Urinary bladder which is most likely from inadequate distention. Prostate measures 3.4 x 5.3 by 3.6 cm. Mild wall thickening of the distal esophagus. Gastric wall thickening. Multiple hypodense round densities within the stomach which may represent ingested material. The small bowel loops are unremarkable. Appendix is unremarkable. Colonic diverticulosis without diverticulitis. Small to moderate amount of fecal material within the colon. No evidence of intraperitoneal free air or free fluid. No evidence of aortic aneurysm. No significant lymphadenopathy. Small fat containing bilateral inguinal hernias. Small fat containing umbilical hernia. The soft tissues are unremarkable. No evidence of acute osseous abnormalities. IMPRESSION: Mild wall thickening of the distal esophagus with mild wall thickening of the stomach. Correlate for esophagitis and gastritis respectively. Colonic diverticulosis without diverticulitis. Mild hepatomegaly with hepatic steatosis. 2.PROCEDURE(s): CXRP - CHEST PORTABLE REASON: sob ORDER NUMBER(s): [id number], ACCESSION NUMBER(s): [id number] CLINICAL HISTORY: sob TECHNIQUE: Single view of the chest was obtained. COMPARISON: XY CHEST PORTABLE on DOS: 11/17/24 FINDINGS: The heart size and pulmonary vasculature are normal. The lungs are clear. IMPRESSION: NO ACUTE CARDIOPULMONARY PROCESS. 3.PROCEDURE(s): ABPLC - CT ABD PELVIS W CON-ORAL & IV REASON: ABDOMINAL PAIN; NAUSEA AND DIARRHEA ORDER NUMBER(s): [id number], ACCESSION NUMBER(s): [id number] EXAM DESCRIPTION: CT CT ABD PELVIS W CON-ORAL IV CLINICAL HISTORY: ABDOMINAL PAIN; NAUSEA AND DIARRHEA COMPARISON: CT 05/20/25 TECHNIQUE: CT abdomen and pelvis with IV contrast was performed. Coronal and sagittal MPR images were generated. 27.15 CTDI, DLP = 27.15 / 1464.85 Dose reduction technique with one or more of the following methods was performed: Automated exposure control, adjustment of the mA and/or kV according to patient size, use of iterative reconstruction [place] FINDINGS: Lower chest: Clear lung bases. Liver: Diffusely decreased in attenuation. . Biliary: Status post cholecystectomy. No biliary ductal dilatation. Pancreas: No fat stranding or focal lesion. Spleen: Normal in size.. No specific data provided Adrenal glands: No nodularity. Kidneys: Symmetric enhancement. No hydroureteronephrosis. . Bladder: Underdistended, limiting evaluation. Reproductive organs: Normal. Bowel: No bowel wall thickening or dilatation. Colonic diverticulosis without evidence of diverticulitis. Normal appendix. Peritoneum: No free fluid. No free air. Vessels: Normal caliber abdominal aorta. Lymph nodes: No suspicious lymph nodes. Soft tissues: Unremarkable. . Osseous structures: No acute fracture or subluxation. No suspicious osseous lesions. IMPRESSION: 1. No acute abnormality within the abdomen or pelvis. 2. Hepatic steatosis. 3. Colonic diverticulosis without evidence of diverticulitis. Condition at Discharge: Fair Final Diagnosis/Problems List acute exacerbation of Ulcerative colitis ERVIN on CKD,hemodynamically mediated CHF with EF 50% diverticulosis without diverticultits hepatic steatosis bilateral inguinal hernia,umbilical hernia transamnitis hyperlipidemia marijuana use disorder past history of DVT and PE Discharge Disposition: Home Discharge Instruct/Medications Diet: Cardiac 2g Na,low cholest Activity: No Restrictions, As Tolerated Follow Up/Referral: follow up with PCP in 1 week with repeat CMP follwo up with GI Medications: medrol pack mesalamine 800mg po tid bentyl 30mg po qid Scheduled Dicyclomine Hcl (Bentyl Capsule), 1 CAP PO TID Empagliflozin (Jardiance), 10 MG PO DAILY, (Reported) Ergocalciferol (Vitamin D), 50,000 UNIT PO QWEEKLY Famotidine (Pepcid Tablet), 1 TAB PO BID Folic Acid (Folic Acid), 1 MG PO DAILY, (Reported) Furosemide (Lasix), 40 MG PO DAILY Mesalamine (Delzicol), 1,200 MG PO BID, (Reported) Methylprednisolone (Medrol Dosepak), 4 MG PO UD Metoprolol Succinate (Metoprolol Succinate Er), 1 TAB PO DAILY Rivaroxaban (Xarelto), 20 MG PO DAILY, (Reported) Sacubitril-Valsartan (Entresto 97-103 mg), 1 TAB PO BID, (Reported) Spironolactone (Spironolactone), 1 TAB PO DAILY, (Reported) Discontinued Medications Atorvastatin Calcium (Atorvastatin Calcium), 1 TAB PO DAILY, (Reported) Bumetanide (Bumex), 2 MG PO DAILY, (Reported) Chlorpromazine HCl (Chlorpromazine Hydrochlor), 50 MG PO BID, (Reported) Hydrocodone-Acetaminophen (Hydrocodone Bitartrate/AC 5-325 mg), 1 TAB PO Q6HPRN PRN for pain, (Reported) Metoprolol Succinate (Metoprolol Succinate Er), 200 MG PO DAILY, (Reported) Pantoprazole Sodium Sesquihydr (Protonix), 40 MG PO BID, (Reported) Discharge Statement: "Patient was advised to return to the ER or call 911 if any headaches, dizziness, shortness of breath, chest pain, abdominal pain, bleeding, fevers, or worsening of medical condition. Patient was counseled about treatment plan, medications, possible side effects, patientverbalized understanding. All questions were answered to the best of my ability. This discharge took greater then 30 minutes in planning, reviewing documentation, counseling the patient, and discussing with other team members." ASSESSMENT ASSESSMENT Assessment acute exacerbation of Ulcerative colitis AFib ERVIN on CKD CHF with EF 50% diverticulosis without diverticultits transamnitis Date of Service: May 25, 2025 Billing Provider: BJ TURNER MD Common Visit Codes: [id number] INP/OBS CARE(HIGH) JOLIE CHOWDHURY RESIDENT May 25, 2025 13:58
== END 2025-05-25 11:33 | disposition home or self-care (01) | DRG 245 ==
LOC: EDBD 15:04 → EDUNIT# 15:04 → ER 15:07 → OVERFLOW 23:28 → CENTRAL 05-21 21:18
PROVIDERS: ADMIT Internal Medicine; ATTEND Internal Medicine
DX: K51.90 Ulcerative colitis, unspecified, without complications (principal); N17.0 Acute kidney failure with tubular necrosis; Z66 Do not resuscitate; I13.0 Hypertensive heart and chronic kidney disease with heart failure and stage 1 through stage 4 chronic kidney disease, or unspecified chronic kidney disease; K40.20 Bilateral inguinal hernia, without obstruction or gangrene, not specified as recurrent; K42.9 Umbilical hernia without obstruction or gangrene; Z20.822 Contact with and (suspected) exposure to COVID-19; E78.5 Hyperlipidemia, unspecified; I48.91 Unspecified atrial fibrillation; I25.10 Atherosclerotic heart disease of native coronary artery without angina pectoris; K76.0 Fatty (change of) liver, not elsewhere classified; K59.09 Other constipation; N18.9 Chronic kidney disease, unspecified; F12.90 Cannabis use, unspecified, uncomplicated; K57.30 Diverticulosis of large intestine without perforation or abscess without bleeding; R16.0 Hepatomegaly, not elsewhere classified; R74.01 Elevation of levels of liver transaminase levels; Z86.73 Personal history of transient ischemic attack (TIA), and cerebral infarction without residual deficits; I50.22 Chronic systolic (congestive) heart failure; Z86.718 Personal history of other venous thrombosis and embolism; Z86.711 Personal history of pulmonary embolism; Z90.49 Acquired absence of other specified parts of digestive tract; I25.2 Old myocardial infarction; Z80.51 Family history of malignant neoplasm of kidney; Z82.49 Family history of ischemic heart disease and other diseases of the circulatory system; Z79.52 Long term (current) use of systemic steroids
CPT/HCPCS: 36415; 71045; 74176; 74177; 80048; 80053; 80061; 81001; 82270; 82306; 82607; 83036; 83690; 83735; 83880; 84100; 84443; 84484; 85025; 85048; 85610; 85652; 85730; 86141; 87045; 87177; 87426; 87427; 87493; 93005; 93306; 96365; 96368; 96375; G0378; J1885; J2405; J2470; J3490